=== PATIENT | male | born 1955 | race African-American/Black ===

== ENCOUNTER 2016-12-29 10:20 | Emergency (ER) | payer MEDICARE, MEDICAID ==
[2016-12-29] MEDS ORDERED: ONDANSETRON HCL INJ/PF 4 MG/2 ML SDV IV ONE (11:30)
[2016-12-29] MEDS ORDERED: KETOROLAC TROMETHAMINE INJ/PF 30 MG/1 ML SDV IV ONE (11:30)
[2016-12-29] MEDS ORDERED: NORMAL SALINE 1000 ML 1,000 ML IV PRN (11:30)
--- NOTE | 2016-12-29 11:32 | ER Document Report ---
ED Medical Screen (RME) - General Chief Complaint: Nausea/Vomiting Stated Complaint: NAUSEA/VOMITING Time Seen by Provider: 12/29/16 11:30 Mode of Arrival: Ambulatory Information source: Patient TRAVEL OUTSIDE OF THE [place] IN LAST 30 DAYS: No - HPI Patient complains to provider of: Nausea, vomiting, headache Onset: This morning Notes: 12/29/16 11:31 Is a 61-year-old male with a history of diabetes who presents to the emergency room complaining of nausea, vomiting and headache that started this morning, he denies any abdominal pain, no chest pain or shortness of breath, no diarrhea, no dysuria, no sick contacts, no questionable food intake, patient's primary care provider is Dr. Orozco - Related Data Allergies/Adverse Reactions: No Known Allergies Allergy (Verified 12/29/16 10:27) Past Medical History - Past Medical History Cardiac Medical History: Reports: Hx Hypertension Neurological Medical History: Denies: Hx Seizures Endocrine Medical History: Reports: Hx Diabetes Mellitus Type 2 Renal/ Medical History: Denies: Hx Peritoneal Dialysis Psychiatric Medical History: Denies: Hx Depression - Immunizations Immunizations up to date: Yes Hx Diphtheria, Pertussis, Tetanus Vaccination: No Physical Exam - Vital signs Vitals: Temp Pulse Resp BP Pulse Ox 97.6 F 107 H 20 126/72 H 100 12/29/16 10:31 12/29/16 10:31 12/29/16 10:31 12/29/16 10:31 12/29/16 10:31 Course - Vital Signs Vital signs: Temp Pulse Resp BP Pulse Ox 97.6 F 107 H 20 126/72 H 100 12/29/16 10:31 12/29/16 10:31 12/29/16 10:31 12/29/16 10:31 12/29/16 10:31
[2016-12-29 12:40] LABS: ABSOLUTE LYMPHOCYTES (AUTO) 1.1 10^3/uL (0.5-4.7); ABSOLUTE MONOCYTES (AUTO) 0.5 10^3/uL (0.1-1.4); ABSOLUTE NEUT (AUTO) 7.5 10^3/uL (1.7-8.2); BASOPHILS % (AUTO) 0.2 % (0-2); HEMATOCRIT 36.5 % (37.9-51.0); HEMOGLOBIN 11.8 g/dL (13.5-17.0); HGB HCT DIFFERENCE -1.1; LYMPHOCYTES % (AUTO) 11.6 % (13-45); MEAN CORPUSCULAR HGB CONC 32.2 g/dL (32.0-36.0); MEAN CORPUSCULAR VOLUME 106 fl (80-97); MONOCYTES % (AUTO) 5.9 % (3-13); RED BLOOD COUNT 3.46 10^6/uL (4.35-5.55); RED CELL DISTRIBUTION WIDTH 13.8 % (11.5-14.0); SEGMENTED NEUTROPHILS % (AUTO) 82.3 % (42-78); WHITE BLOOD COUNT 9.1 10^3/uL (4.0-10.5)
--- NOTE | 2016-12-29 13:06 | ER Document Report ---
ED GI/ - General Chief Complaint: Nausea/Vomiting Stated Complaint: NAUSEA/VOMITING Time Seen by Provider: 12/29/16 11:30 Mode of Arrival: Ambulatory Information source: Patient Notes: 61 yo daibetic, prostatism, parkinson's disease, anxiety male c/o worse tremors , felt dizzy, weak, shakey, frontal headache 5/5 onset this am 05:30-woke him up , vomiting x 2, watery diarrhea x 2 , voice weak this morning when he woke up. PCP: dr. dixon. No chest pain or sob, no abdominal pain. No surguries. no cancer. No fever.. TRAVEL OUTSIDE OF THE [place] IN LAST 30 DAYS: No - Related Data Allergies/Adverse Reactions: No Known Allergies Allergy (Verified 12/29/16 10:27) Past Medical History - General Information source: Patient - Social History Smoking Status: Unknown if Ever Smoked Frequency of alcohol use: Heavy Drug Abuse: None Lives with: Family Family History: Reviewed & Not Pertinent Patient has suicidal ideation: No Patient has homicidal ideation: No - Past Medical History Cardiac Medical History: Reports: Hx Hypertension Neurological Medical History: Denies: Hx Seizures Endocrine Medical History: Reports: Hx Diabetes Mellitus Type 2 Renal/ Medical History: Denies: Hx Peritoneal Dialysis Psychiatric Medical History: Denies: Hx Depression - Immunizations Immunizations up to date: Yes Hx Diphtheria, Pertussis, Tetanus Vaccination: No Review of Systems - Review of Systems Constitutional: No symptoms reported EENT: No symptoms reported Cardiovascular: No symptoms reported Respiratory: No symptoms reported Gastrointestinal: See HPI Genitourinary: No symptoms reported Male Genitourinary: No symptoms reported Musculoskeletal: No symptoms reported Skin: No symptoms reported Hematologic/Lymphatic: No symptoms reported Neurological/Psychological: No symptoms reported Physical Exam - Vital signs Vitals: Temp Pulse Resp BP Pulse Ox 97.6 F 107 H 20 126/72 H 100 12/29/16 10:31 12/29/16 10:31 12/29/16 10:31 12/29/16 10:31 12/29/16 10:31 Interpretation: Normal - General General appearance: Appears well, Alert In distress: None Notes: tremors noted - HEENT Head: Normocephalic, Atraumatic Eyes: Normal Conjunctiva: Normal Pupils: PERRL Mucous membranes: Moist Pharynx: Normal Neck: Supple - Respiratory Respiratory status: No respiratory distress Chest status: Nontender Breath sounds: Normal Chest palpation: Normal - Cardiovascular Rhythm: Regular Heart sounds: Normal auscultation Murmur: No - Abdominal Inspection: Normal Distension: No distension Bowel sounds: Normal Tenderness: Nontender. No: Tender Organomegaly: No organomegaly - Back Back: Normal, Nontender. No: CVA tenderness - Extremities General upper extremity: Normal inspection, Nontender, Normal color, Normal ROM , Normal temperature General lower extremity: Normal inspection, Nontender, Normal color, Normal ROM , Normal temperature, Normal weight bearing. No: Jesica's sign - Neurological Neuro grossly intact: Yes Cognition: Normal Orientation: AAOx4 [place] Coma Scale Eye Opening: Spontaneous [place] Coma Scale Verbal: Oriented Ethan Coma Scale Motor: Obeys Commands Ethan Coma Scale Total: 15 Speech: Normal Motor strength normal: LUE, RUE, LLE, RLE Sensory: Normal - Psychological Associated symptoms: Normal affect, Normal mood - Skin Skin Temperature: Warm Skin Moisture: Dry Skin Color: Normal Skin irregularity: negative: Rash Course - Re-evaluation Re-evalutation: 12/29/16 13:[address] Forde for supplementary orders of CT of the head, magnesium 1 g IV, and ABGs since his PO2 of 6. Magnesium 1.6. 12/29/16 18:27 It is normal on the ABG 7.3. Dr. Forde recommends repeating the basic 7 to see how his electrolytes are doing after IV fluids and eating and drinking which he is doing now. Has not had any vomiting or diarrhea here he can go home if the basic 7 is improving are normal. Feels a lot better. 12/29/16 20:[address] Dixon patient in the office he told me to tell the patient to stop drinking alcohol. 12/29/16 20:16 covering glucose with 4 units SQ for glucose 242, OK with dr. galvan to send pt home without accucheck - Vital Signs Vital signs: Temp Pulse Resp BP Pulse Ox 97.6 F 107 H 22 H 122/70 98 12/29/16 10:31 12/29/16 10:31 12/29/16 17:01 12/29/16 17:01 12/29/16 17:01 - Laboratory Result Diagrams: 12/29/16 12:05 12/29/16 19:15 Laboratory results interpreted by me: 12/29/16 12/29/16 12/29/16 11:49 12:05 12:05 RBC 3.46 L Hgb 11.8 L Hct 36.5 L MCV 106 H MCH 34.0 H Plt Count 105 L Seg Neutrophils % 82.3 H Lymphocytes % 11.6 L Carbonic Acid ABG pH ABG pCO2 ABG HCO3 ABG Total CO2 Sodium Potassium 5.3 H Chloride 93 L Carbon Dioxide 6 L* Anion Gap 40 H Creatinine 1.46 H Est GFR ( Amer) 59 L Est GFR (Non-Af Amer) 49 L Glucose 198 H POC Glucose 182 H Calcium Magnesium 1.1 L* Total Bilirubin 2.2 H Direct Bilirubin 1.4 H AST 274 H ALT 78 H Alkaline Phosphatase 138 H Total Protein 10.5 H Urine Glucose (UA) Urine Ketones Urine Blood Ur Leukocyte Esterase 12/29/16 12/29/16 12/29/16 14:10 14:45 19:15 RBC Hgb Hct MCV MCH Plt Count Seg Neutrophils % Lymphocytes % Carbonic Acid 0.74 L ABG pH 7.30 L ABG pCO2 24.5 L ABG HCO3 11.8 L ABG Total CO2 12.6 L Sodium 133.9 L Potassium Chloride 95 L Carbon Dioxide 16 L D Anion Gap 23 H Creatinine 1.41 H Est GFR ( Amer) Est GFR (Non-Af Amer) 51 L Glucose 242 H POC Glucose Calcium 8.2 L Magnesium Total Bilirubin Direct Bilirubin AST ALT Alkaline Phosphatase Total Protein Urine Glucose (UA) >=500 H Urine Ketones 80 H Urine Blood MODERATE H Ur Leukocyte Esterase SMALL H Discharge - Discharge Clinical Impression: Nausea and vomiting Qualifiers: Vomiting type: unspecified Vomiting Intractability: non-intractable Qualified Code(s): R11.2 - Nausea with vomiting, unspecified Headache Qualifiers: Headache type: unspecified Headache chronicity pattern: acute headache Intractability: not intractable Qualified Code(s): R51 - Headache Condition: Good Disposition: HOME, SELF-CARE Instructions: Diarrhea, Nonspecific ([facility]), Intravenous (IV) Fluids ([facility]), Vomiting ([facility]), Diabetes ([facility]) Additional Instructions: drink plenty of fluids/water daily stop drinking alcohol to er if worse See Dr. Dixon tomorrow Please complete the patient satisfaction survey if you get one, and return it.. If you do not receive a survey, then you can go to the [facility] website, [email or web address] and place your comments about your very good care. Thank you very much. It was a pleasure being your medical provider today. Referrals: YASSINE DIXON MD [Primary Care Provider] - Follow up tomorrow
[2016-12-29 13:08] LABS: ALANINE AMINOTRANSFERASE 78 U/L (21-72); ALBUMIN 4.8 g/dL (3.5-5.0); ALCOHOL 14 mg/dL (NONE DETECTED); ALKALINE PHOSPHATASE 138 U/L (38-126); ASPARTATE AMINO TRANSFERASE 274 U/L (17-59); BILIRUBIN,DIRECT 1.4 mg/dL (0.0-0.4); BILIRUBIN,TOTAL 2.2 mg/dL (0.2-1.3); BLOOD UREA NITROGEN 14 mg/dL (7-20); CHLORIDE 93 mmol/L (98-107); CREATININE RESULT 1.46 mg/dL (0.52-1.25); GLUCOSE 198 mg/dL (75-110); TOTAL PROTEIN 10.5 g/dL (6.3-8.2)
[2016-12-29 13:14] LABS: LIPASE 254.2 U/L (23-300)
[2016-12-29 13:23] LABS: FREE T3 3.12 pg/mL (2.77-5.27)
[2016-12-29 13:28] LABS: POTASSIUM 5.3 mmol/L (3.6-5.0); SODIUM 139.1 mmol/L (137-145)
[2016-12-29 13:36] LABS: THYROID STIMULATING HORMONE 0.95 uIU/mL (0.47-4.68)
[2016-12-29 13:38] LABS: ANION GAP 40 (5-19)
[2016-12-29 13:41] LABS: CARBON DIOXIDE 6 mmol/L (22-30); MAGNESIUM 1.1 mg/dL (1.6-2.3)
[2016-12-29] MEDS ORDERED: MAGNESIUM SULFATE/D5W 100 ML IV ONE (13:56)
[2016-12-29 14:45] LABS: APPEARANCE,URINE CLEAR; BILIRUBIN,URINE NEGATIVE (NEGATIVE); GLUCOSE, URINE >=500 mg/dL (NEGATIVE); KETONES,URINE 80 mg/dL (NEGATIVE); LEUKOCYTE ESTERASE,URINE SMALL (NEGATIVE); NITRITE,URINE NEGATIVE (NEGATIVE); PROTEIN,URINE NEGATIVE (NEGATIVE); URINE SPECIFIC GRAVITY 1.006; UROBILINOGEN,URINE NEGATIVE mg/dL (<2.0)
--- NOTE | 2016-12-29 14:54 | RADIOLOGY REPORT (SQ) ---
EXAM DESCRIPTION: CT HEAD WITHOUT COMPLETED DATE/TIME: 12/29/2016 2:41 pm REASON FOR STUDY: sudden onset DAVE, dizzy COMPARISON: 11/18/2015 TECHNIQUE: Axial images acquired through the brain without intravenous contrast. Images reviewed wi th bone, brain and subdural windows. Images stored on PACS. All CT scanners at this facility use dose modulation, iterative reconstruction, and/or weight based d osing when appropriate to reduce radiation dose to as low as reasonably achievable (ALARA). [facility]: Dose Right [facility]: CareDose [facility]: Dose Right [facility]: Teradose 4D [facility]: MiName RADIATION DOSE: 64.61 mGy. LIMITATIONS: None. FINDINGS: VENTRICLES: Normal size and contour. CEREBRUM: No masses. No hemorrhage. No midline shift. Normal jackson/white matter differentiation. N o evidence for acute infarction. CEREBELLUM: No masses. No hemorrhage. No alteration of density. No evidence for acute infarction. EXTRAAXIAL SPACES: No fluid collections. No masses. ORBITS AND GLOBE: No intra- or extraconal masses. Normal contour of globe without masses. CALVARIUM: No fracture. PARANASAL SINUSES: No fluid or mucosal thickening. SOFT TISSUES: No mass or hematoma. OTHER: No other significant finding. IMPRESSION: NORMAL BRAIN CT WITHOUT CONTRAST. TECHNICAL DOCUMENTATION: JOB ID: [id number] Quality ID # [id number]: Final reports with documentation of one or more dose reduction techniques (e.g., Au tomated exposure control, adjustment of the mA and/or kV according to patient size, use of iterative reconstruction technique) 2010 [employer]- All Rights Reserved
[2016-12-29] MEDS ORDERED: ACETAMINOPHEN 325 MG TABLET PO ONE (15:59)
[2016-12-29 18:07] LABS: ARTERIAL BLOOD BASE EXCESS -12.8 mmol/L
[2016-12-29 19:47] LABS: BLOOD UREA NITROGEN 16 mg/dL (7-20); CALCIUM 8.2 mg/dL (8.4-10.2); CHLORIDE 95 mmol/L (98-107); CREATININE RESULT 1.41 mg/dL (0.52-1.25); GLUCOSE 242 mg/dL (75-110)
[2016-12-29 19:57] LABS: SODIUM 133.9 mmol/L (137-145)
[2016-12-29 19:58] LABS: ANION GAP 23 (5-19); CARBON DIOXIDE 16 mmol/L (22-30)
[2016-12-29] MEDS ORDERED: INSULIN REG, HUMAN 100 UNIT/ML 3 ML VIAL (PYX) SUBCUT ONE (20:15)
[2016-12-29 21:31] VITALS: BP 145/75
== END 2016-12-29 21:29 | disposition home or self-care (01) ==
LOC: ER 10:20
DX: R11.2 Nausea with vomiting, unspecified (principal); R51 Headache; E11.9 Type 2 diabetes mellitus without complications; G20 Parkinson's disease; F41.9 Anxiety disorder, unspecified
CPT/HCPCS: 99284; 96361; 96375; 96365; 36415; 87086; 84439; 82962; 80307; 82803; 83690; 83735; 84443; 85025; 80048; 80053; 81001; 84481; 70450; 36600; A9270; J1885; J3475; J2405; J7030; J1815

== ENCOUNTER 2017-04-14 17:27 | Emergency (ER) | payer MEDICARE, MEDICAID ==
[2017-04-14] MEDS ORDERED: CEFTRIAXONE 1 GM/D5W RTU 1 GM/50 ML RTUPB IV ONE (17:32)
--- NOTE | 2017-04-14 17:41 | ER Document Report ---
ED Medical Screen (RME) - General Stated Complaint: WEAKNESS Time Seen by Provider: 04/14/17 17:30 Mode of Arrival: Medic Information source: Patient, Emergency Med Personnel Notes: 61 yr old male presents with dizziness lightheaded shaking, pt has hx of diabetes, admits to burning on urination I have greeted and performed a rapid initial assessment of this patient. A comprehensive ED assessment and evaluation of the patient, analysis of test results and completion of the medical decision making process will be conducted by additional ED providers. PHYSICAL EXAMINATION: GENERAL: ill-appearing, well-nourished and in mild distress HEAD: Atraumatic, normocephalic. EYES: Pupils equal round extraocular movements intact, conjunctiva are normal. ENT: Nares patent NECK: Normal range of motion LUNGS: No respiratory distress tachypniec Musculoskeletal: Normal range of motion NEUROLOGICAL: Normal speech, normal gait. PSYCH: Normal mood, normal affect. SKIN: hot ot touch TRAVEL OUTSIDE OF THE [place] IN LAST 30 DAYS: No - Related Data Allergies/Adverse Reactions: No Known Allergies Allergy (Verified 12/29/16 10:27) Past Medical History - Past Medical History Cardiac Medical History: Reports: Hx Hypertension Neurological Medical History: Denies: Hx Seizures Endocrine Medical History: Reports: Hx Diabetes Mellitus Type 2 Renal/ Medical History: Denies: Hx Peritoneal Dialysis Psychiatric Medical History: Denies: Hx Depression - Immunizations Immunizations up to date: Yes Hx Diphtheria, Pertussis, Tetanus Vaccination: No
[2017-04-14] MEDS: NORMAL SALINE 1000 ML 1,000 ML IV PRN ×2 (17:48→17:49)
[2017-04-14 17:55] LABS: VENOUS BLOOD BASE EXCESS -19.4 mmol/L; VENOUS BLOOD HCO3 9.3 mmol/L (20-32); VENOUS BLOOD PCO2 31.7 mmHg (35-63)
[2017-04-14 17:58] LABS: ABSOLUTE LYMPHOCYTES (AUTO) 1.2 10^3/uL (0.5-4.7); ABSOLUTE MONOCYTES (AUTO) 0.5 10^3/uL (0.1-1.4); ABSOLUTE NEUT (AUTO) 5.7 10^3/uL (1.7-8.2); BASOPHILS % (AUTO) 0.3 % (0-2); HEMATOCRIT 32.8 % (37.9-51.0); HEMOGLOBIN 10.8 g/dL (13.5-17.0); HGB HCT DIFFERENCE -0.4; LYMPHOCYTES % (AUTO) 16.5 % (13-45); MEAN CORPUSCULAR HGB CONC 32.9 g/dL (32.0-36.0); MEAN CORPUSCULAR VOLUME 106 fl (80-97); MONOCYTES % (AUTO) 6.7 % (3-13); RED BLOOD COUNT 3.09 10^6/uL (4.35-5.55); RED CELL DISTRIBUTION WIDTH 16.3 % (11.5-14.0); SEGMENTED NEUTROPHILS % (AUTO) 76.5 % (42-78); VENOUS BLOOD PH 7.08 (7.30-7.42); WHITE BLOOD COUNT 7.4 10^3/uL (4.0-10.5)
[2017-04-14] MEDS ORDERED: LIDOCAINE 2% URO-JET 5 ML KIT MM ONE (18:00)
[2017-04-14 18:01] LABS: PROTHROMBIN TIME 20.8 SEC (11.4-15.4)
[2017-04-14 18:07] LABS: ALANINE AMINOTRANSFERASE 71 U/L (21-72); ALKALINE PHOSPHATASE 174 U/L (38-126); ASPARTATE AMINO TRANSFERASE 186 U/L (17-59); BILIRUBIN,DIRECT 0.8 mg/dL (0.0-0.4); BILIRUBIN,TOTAL 1.1 mg/dL (0.2-1.3); BLOOD UREA NITROGEN 13 mg/dL (7-20); CALCIUM 8.8 mg/dL (8.4-10.2); CHLORIDE 105 mmol/L (98-107); CREATININE RESULT 1.14 mg/dL (0.52-1.25); GLUCOSE 125 mg/dL (75-110); POTASSIUM 4.2 mmol/L (3.6-5.0); SODIUM 150.5 mmol/L (137-145); TOTAL PROTEIN 8.5 g/dL (6.3-8.2)
[2017-04-14] MEDS ORDERED: LIDOCAINE 2% JELLY 5 ML TUBE ONE (18:07)
--- NOTE | 2017-04-14 18:14 | EKG REPORT ---
SEVERITY:- ABNORMAL ECG - SINUS TACHYCARDIA PROBABLE LEFT ATRIAL ABNORMALITY LEFT AXIS DEVIATION NONSPECIFIC T ABNORMALITIES, LATERAL LEADS : Confirmed by: Chrissy Broussard MD 14-Apr-2017 18:14:16
--- NOTE | 2017-04-14 18:18 | RADIOLOGY REPORT (SQ) ---
EXAM DESCRIPTION: CHEST SINGLE VIEW COMPLETED DATE/TIME: 04/14/2017 6:05 pm REASON FOR STUDY: bed 2 sepsis protocol COMPARISON: None. EXAM PARAMETERS: NUMBER OF VIEWS: One view. TECHNIQUE: Single frontal radiographic view of the chest acquired. RADIATION DOSE: NA LIMITATIONS: None. FINDINGS: LUNGS AND PLEURA: No opacities, masses or pneumothorax. No pleural effusion. MEDIASTINUM AND HILAR STRUCTURES: No masses. Contour normal. HEART AND VASCULAR STRUCTURES: Heart normal in size. Normal vasculature. BONES: No acute findings. 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 HARDWARE: None in the chest. OTHER: No other significant finding. IMPRESSION: NO ACUTE RADIOGRAPHIC FINDING IN THE CHEST. TECHNICAL DOCUMENTATION: JOB ID: [id number]
[2017-04-14 18:20] LABS: CARBON DIOXIDE 5 mmol/L (22-30)
[2017-04-14] MEDS ORDERED: NORMAL SALINE 1000 ML 1,000 ML IV ONE (18:20)
[2017-04-14 18:28] LABS: APPEARANCE,URINE CLEAR; BILIRUBIN,URINE NEGATIVE (NEGATIVE); GLUCOSE, URINE NEGATIVE (NEGATIVE); KETONES,URINE 20 mg/dL (NEGATIVE); LEUKOCYTE ESTERASE,URINE NEGATIVE (NEGATIVE); NITRITE,URINE POSITIVE (NEGATIVE); PROTEIN,URINE NEGATIVE (NEGATIVE); URINE SPECIFIC GRAVITY 1.009; UROBILINOGEN,URINE NEGATIVE mg/dL (<2.0)
[2017-04-14 18:44] LABS: ANION GAP 41 (5-19)
[2017-04-14] MEDS ORDERED: PIPERACILLIN/TAZOBACTAM 3.375 GM VIAL IV ONE (18:51)
--- NOTE | 2017-04-14 19:21 | ER Document Report ---
ED General - General Chief Complaint: Weakness Stated Complaint: WEAKNESS Time Seen by Provider: 04/14/17 17:30 Mode of Arrival: Medic Information source: Patient Notes: 61-year-old man with a history of diabetes, hypertension, alcoholic liver disease and Werneke's encephalopathy. Patient does have history of a similar presentation approximately one year ago where he presented with an enterococcus UTI sepsis. At that time he had a lactic acid of 20 and was quite acidotic. The patient is brought into the emergency room today because of "feeling sick" for a couple of days along with some cloudy urine. Review of systems: Patient does complain of a headache. TRAVEL OUTSIDE OF THE [place] IN LAST 30 DAYS: No - HPI Onset: Last week Onset/Duration: Gradual Quality of pain: No pain, Dull Severity: Moderate Pain Level: Denies Associated symptoms: Headache, Weakness Exacerbated by: Denies Relieved by: Denies Similar symptoms previously: Yes Recently seen / treated by doctor: No - Related Data Allergies/Adverse Reactions: No Known Allergies Allergy (Verified 12/29/16 10:27) Past Medical History - General Information source: Patient, Emergency Med Personnel - Social History Smoking Status: Never Smoker Chew tobacco use (# tins/day): No Frequency of alcohol use: Heavy Drug Abuse: None Lives with: Family Family History: Reviewed & Not Pertinent Patient has suicidal ideation: No Patient has homicidal ideation: No - Past Medical History Cardiac Medical History: Reports: Hx Hypertension Neurological Medical History: Denies: Hx Seizures Endocrine Medical History: Reports: Hx Diabetes Mellitus Type 2 Renal/ Medical History: Denies: Hx Peritoneal Dialysis Psychiatric Medical History: Denies: Hx Depression - Immunizations Immunizations up to date: Yes Hx Diphtheria, Pertussis, Tetanus Vaccination: No Review of Systems - Review of Systems Constitutional: denies: Chills, Fever EENT: No symptoms reported Cardiovascular: No symptoms reported Respiratory: No symptoms reported Gastrointestinal: No symptoms reported Genitourinary: No symptoms reported Male Genitourinary: No symptoms reported Musculoskeletal: No symptoms reported Skin: No symptoms reported Hematologic/Lymphatic: No symptoms reported Neurological/Psychological: See HPI Physical Exam - Vital signs Vitals: Resp Pulse Ox 23 H 97 04/14/17 18:13 04/14/17 18:13 Notes: Physical exam: GENERAL: The patient is alert and answering questions. He just states that he does not feel good. He denies having pain anywhere. HEAD: Atraumatic, normocephalic. EYES: Pupils equal round and reactive to light, extraocular movements intact, sclera anicteric, conjunctiva are injected. ENT: TMs normal, nares patent, oropharynx clear without exudates. Dry mucous membranes. NECK: Normal range of motion, supple without obvious mass or JVD. LUNGS: Breath sounds clear to auscultation bilaterally and equal. No wheezes rales or rhonchi. HEART: Tachycardic without murmurs, rubs or gallops. ABDOMEN: Soft, normoactive bowel sounds. No tenderness to palpation. No guarding, no rebound. No masses appreciated. Back: Skin is clear, no rashes. Rectal: Temperature is 94.6, is no perirectal fluctuance or tenderness. His prostate is enlarged but it is nontender. His stool is brown (sent for study). EXTREMITIES: Normal range of motion, no pitting or edema. No clubbing or cyanosis. NEUROLOGICAL: Cranial nerves II through XII grossly intact. Normal speech, moving all extremities. He moves his neck without any problems. PSYCH: Normal mood, normal affect. SKIN: Warm, Dry, normal turgor, no rashes or lesions noted. Course - Re-evaluation Re-evalutation: 04/14/17 22:34 Note: The patient appears to be septic. He has a very similar presentation in the past that turned out to be sepsis with UTI from enterococcus. At that time , his CO2 was low and his lactic acid was very high. We did try and get a Woodard in without success (multiple times). He will have overflow incontinence, but he has significant urinary retention. We have stopped after the fifth attempt because we do not want a create a false passage. Because of this, I have contacted [facility] to transfer the patient because we have no urology here at this hospital. Before transport, I did put the patient in the CT scanner and CT head was okay and the CT abdomen showed some inflammation in the left upper quadrant at the tail of the pancreas. I believe this is from the patient's alcohol abuse. His abdomen was quite soft and nontender. Given the patient's headache, lactic acid and concerns for sepsis, I performed a spinal tap. The fluid was mildly traumatic but it cleared by the fourth tube. Labs are pending. I discussed this with Dr. Elias who has accepted the patient to [facility]. - Vital Signs Vital signs: Temp Pulse Resp BP Pulse Ox 24 H 110/57 L 99 04/14/17 20:21 04/14/17 20:21 04/14/17 21:00 - Laboratory Result Diagrams: 04/14/17 17:34 04/14/17 17:34 Laboratory results interpreted by me: 04/14/17 04/14/17 04/14/17 17:34 17:34 17:34 RBC 3.09 L Hgb 10.8 L Hct 32.8 L MCV 106 H MCH 35.0 H RDW 16.3 H Plt Count 88 L PT 20.8 H VBG pH VBG pCO2 VBG HCO3 Sodium 150.5 H Carbon Dioxide 5 L* Anion Gap 41 H Glucose 125 H Lactic Acid Magnesium Direct Bilirubin 0.8 H AST 186 H Alkaline Phosphatase 174 H Total Protein 8.5 H Urine Ketones Urine Blood Urine Nitrite 04/14/17 04/14/17 04/14/17 17:34 17:34 17:34 RBC Hgb Hct MCV MCH RDW Plt Count PT VBG pH 7.08 L* VBG pCO2 31.7 L VBG HCO3 9.3 L Sodium Carbon Dioxide Anion Gap Glucose Lactic Acid 20.3 H Magnesium 1.1 L* Direct Bilirubin AST Alkaline Phosphatase Total Protein Urine Ketones Urine Blood Urine Nitrite 04/14/17 18:05 RBC Hgb Hct MCV MCH RDW Plt Count PT VBG pH VBG pCO2 VBG HCO3 Sodium Carbon Dioxide Anion Gap Glucose Lactic Acid Magnesium Direct Bilirubin AST Alkaline Phosphatase Total Protein Urine Ketones 20 H Urine Blood LARGE H Urine Nitrite POSITIVE H - Diagnostic Test Radiology reviewed: Image reviewed, Reports reviewed - EKG Interpretation by Me Rate: Tachycardia - EKG shows a sinus tachycardia with a ventricular rate of 115 , left anterior hemiblock, no acute ST-T wave changes Procedures - Lumbar Puncture Lumbar puncture Time completed: 21:03 Consent obtained: Yes Lumbar puncture pre-procedure: Chloraprep applied, Sterile drapes applied Patient position: Lying Needle size: 20 Lumbar puncture location: Lower lumbar Anesthetic type: 1% Lidocaine mL's of anesthetic: 5 Number of attempts: 2 Complications: No Notes: 04/14/17 21:04 Tube #1 fluid was mildly traumatic. The fluid cleared significantly by tube # 4. Fluid sent for study. Critical Care Note - Critical Care Note Total time excluding time spent on procedures (mins): 60 Discharge - Discharge Clinical Impression: Sepsis, Obstructive uropathy Condition: Serious Disposition: [facility] Referrals: YASSINE JOSEPH MD [Primary Care Provider] - Follow up as needed
[2017-04-14] MEDS ORDERED: THIAMINE HCL 100 MG in NORMAL SALINE 50 ML IV SCH (19:30)
[2017-04-14 20:05] VITALS: BP 110/57
[2017-04-14] MEDS ORDERED: MAGNESIUM SULFATE/D5W 1 GM/100 ML RTUPB IV SCH (20:15)
[2017-04-14] MEDS ORDERED: THIAMINE HCL 100 MG in NORMAL SALINE 50 ML IV ONE (20:30)
[2017-04-14] MEDS ORDERED: LIDOCAINE 1% INJ-PF (10 MG/ML) 30 ML SDV ONE (20:53)
--- NOTE | 2017-04-14 20:56 | RADIOLOGY REPORT (SQ) ---
EXAM DESCRIPTION: CT HEAD WITHOUT COMPLETED DATE/TIME: 04/14/2017 8:40 pm REASON FOR STUDY: altered COMPARISON: None. TECHNIQUE: Axial images acquired through the brain without intravenous contrast. Images reviewed wi th bone, brain and subdural windows. Images stored on PACS. All CT scanners at this facility use dose modulation, iterative reconstruction, and/or weight based d osing when appropriate to reduce radiation dose to as low as reasonably achievable (ALARA). [facility]: Dose Right [facility]: CareDose [facility]: Dose Right [facility]: Teradose 4D [facility]: [employer] RADIATION DOSE: Up-to-date CT equipment and radiation dose reduction techniques were employed. CTDIv ol: 64.6 mGy. DLP: 1163 mGy-cm. mGy. LIMITATIONS: None. FINDINGS: VENTRICLES: Normal size and contour. CEREBRUM: No masses. No hemorrhage. No midline shift. No evidence for acute infarction. Normal gra y/white matter differentiation. No areas of low density in the white matter. CEREBELLUM: No masses. No hemorrhage. No alteration of density. No evidence for acute infarction. EXTRAAXIAL SPACES: No fluid collections. No masses. ORBITS AND GLOBE: No intra- or extraconal masses. Normal contour of globe without masses. CALVARIUM: No fracture. PARANASAL SINUSES: No fluid or mucosal thickening. SOFT TISSUES: No mass or hematoma. OTHER: No other significant finding. IMPRESSION: No acute intracranial findings. EVIDENCE OF ACUTE STROKE: NO. COMMENT: Quality ID # [id number]: Final reports with documentation of one or more dose reduction techniques (e.g., Automated exposure control, adjustment of the mA and/or kV according to patient size, use of iterative reconstruction technique) TECHNICAL DOCUMENTATION: JOB ID: [id number] [employer]- All Rights Reserved
--- NOTE | 2017-04-14 21:01 | RADIOLOGY REPORT (SQ) ---
EXAM DESCRIPTION: CT ABD/PELVIS WITH IV ONLY COMPLETED DATE/TIME: 04/14/2017 8:40 pm REASON FOR STUDY: sepsis COMPARISON: None. TECHNIQUE: CT scan of the abdomen and pelvis performed using helical scanning technique with dynamic intravenous contrast injection. No oral contrast. Images reviewed with lung, soft tissue, and bone windows. Reconstructed coronal and sagittal MPR images reviewed. Delayed images for evaluation of the urinary system also acquired. All images stored on PACS. All CT scanners at this facility use dose modulation, iterative reconstruction, and/or weight based d osing when appropriate to reduce radiation dose to as low as reasonably achievable (ALARA). [facility]: Dose Right [facility]: CareDose [facility]: Dose Right [facility]: Teradose 4D [facility]: [employer] CONTRAST TYPE AND DOSE: contrast/concentration: Isovue 370.00 mg/ml; Total Contrast Delivered: 81.0 ml; Total Saline Delivered: 38.0 ml RENAL FUNCTION: GFR > 60. RADIATION DOSE: Up-to-date CT equipment and radiation dose reduction techniques were employed. CTDIv ol: 13.6 - 14.4 mGy. DLP: 1395 mGy-cm.. LIMITATIONS: None. FINDINGS: LOWER CHEST: No significant findings. No nodules or infiltrates. LIVER: Normal size. Diffuse fatty infiltration. No dilated ducts. SPLEEN: Normal size. No focal lesions. PANCREAS: Moderate inflammatory changes in the left upper quadrant adjacent to the tail and distal karina dy of the pancreas. No significant calcifications. No peripancreatic fluid collections. Pancreatic du ct not dilated. GALLBLADDER: No identified stones by CT criteria. No inflammatory changes to suggest cholecystitis. ADRENAL GLANDS: No significant masses or asymmetry. RIGHT KIDNEY AND URETER: No solid masses. No significant calcifications. No hydronephrosis or hyd roureter. LEFT KIDNEY AND URETER: No solid masses. No significant calcifications. No hydronephrosis or hydr oureter. AORTA AND VESSELS: No aneurysm. No dissection. Renal arteries, SMA, celiac without stenosis. RETROPERITONEUM: No retroperitoneal adenopathy, hemorrhage or masses. BOWEL AND PERITONEAL CAVITY: Moderate wall thickening in the cecum. Small left inguinal hernia with a short segment of sigmoid colon without evidence for obstruction or incarceration. APPENDIX: Normal. PELVIS: No free fluid. Normal bladder. ABDOMINAL WALL: No masses. Small left inguinal hernia with a short segment of sigmoid colon without evidence for obstruction or incarceration. . BONES: No acute findings. OTHER: No other significant finding. IMPRESSION: Moderate wall thickening in the cecum. Moderate inflammatory changes in the left upper quadrant adjacent to the tail and distal body of the pancreas. TECHNICAL DOCUMENTATION: JOB ID: [id number] Quality ID # [id number]: Final reports with documentation of one or more dose reduction techniques (e.g., Au tomated exposure control, adjustment of the mA and/or kV according to patient size, use of iterative reconstruction technique) 2010 [employer]- All Rights Reserved
[2017-04-14 22:49] LABS: GLUCOSE,CSF 87 mg/dL (40-70)
[2017-04-14 22:59] LABS: APPEARANCE TUBE 1 SLIGHTLY HAZY
[2017-04-14 23:00] LABS: APPEARANCE TUBE 2 SLIGHTLY HAZY; APPEARANCE TUBE 3 CLEAR; RBC DILUENT USED NONE USED; RBC DILUTION FACTOR 1; RBC SIDE 1 463; RBC SIDE 2 451; TOTAL RBC SQUARES COUNTED 25
[2017-04-14 23:01] LABS: WHITE BLOOD CELL,CSF 12 /uL (0-5)
[2017-04-14 23:08] LABS: APPEARANCE TUBE 1 SLIGHTLY HAZY; APPEARANCE TUBE 2 SLIGHTLY HAZY; APPEARANCE TUBE 3 CLEAR; RBC AVERAGE 403.5; RBC DILUENT USED NONE USED; RBC DILUTION FACTOR 1; RBC SIDE 1 413; RBC SIDE 2 394; TOTAL RBC SQUARES COUNTED 225
[2017-04-14 23:09] LABS: WHITE BLOOD CELL,CSF 1 /uL (0-5)
== END 2017-04-14 21:15 | disposition short-term general hospital (02) ==
LOC: ER 17:27
PROC: 009U3ZX Drainage of Spinal Canal, Percutaneous Approach, Diagnostic (ICD-10-PCS; principal; 2017-04-14)
DX: A41.9 Sepsis, unspecified organism (principal); N13.9 Obstructive and reflux uropathy, unspecified; R53.1 Weakness; R51 Headache; E11.9 Type 2 diabetes mellitus without complications; I10 Essential (primary) hypertension
CPT/HCPCS: 93005; 99291; 51702; 96365; 96367; 36415; 87040; 87070; 87086; 87205; 83735; 85025; 85610; 89050; 82945; 84157; 82272; 80053; 81001; 82803; 83605; 71010; 70450; 74177; 93010; 62270; J7030; J0696; J2543; A9270; J3490

== ENCOUNTER 2017-07-23 03:27 | Emergency (ER) | payer MEDICARE, MEDICAID ==
--- NOTE | 2017-07-23 04:12 | ER Document Report ---
ED General - General Stated Complaint: SYNCOPE/FALL Time Seen by Provider: 07/23/17 03:58 Notes: Patient is a 61-year-old male presents with complaint of syncopal episode. He is found down at home by family. The fall was heard but apparently not seen per the manager collection report. Patient currently is awake and alert. He says he feels fine. 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 It is reported by paramedics that he did drink tonight. Patient currently denies any pain. He denies any chest pain. No shortness of breath. Denies a headache. He has no complaints at this time. He denies any symptoms before or after the syncope. TRAVEL OUTSIDE OF THE [place] IN LAST 30 DAYS: No - Related Data Allergies/Adverse Reactions: No Known Allergies Allergy (Verified 12/29/16 10:27) Past Medical History - Social History Smoking Status: Unknown if Ever Smoked Chew tobacco use (# tins/day): No Frequency of alcohol use: Heavy Drug Abuse: None Family History: Reviewed & Not Pertinent Patient has suicidal ideation: No Patient has homicidal ideation: No - Past Medical History Cardiac Medical History: Reports: Hx Hypertension Neurological Medical History: Denies: Hx Seizures Endocrine Medical History: Reports: Hx Diabetes Mellitus Type 2 Renal/ Medical History: Denies: Hx Peritoneal Dialysis Psychiatric Medical History: Denies: Hx Depression - Immunizations Immunizations up to date: Yes Hx Diphtheria, Pertussis, Tetanus Vaccination: No Review of Systems - Review of Systems Notes: My Normal Review Basic REVIEW OF SYSTEMS: CONSTITUTIONAL : Denies fever, chills, or sweats. Denies recent illness. EENT: Denies eye, ear, throat, or mouth pain or symptoms. Denies nasal or sinus congestion. CARDIOVASCULAR: Denies chest pain. RESPIRATORY: Denies cough, cold, or chest congestion. Denies shortness of breath, difficulty breathing, or wheezing. GASTROINTESTINAL: Denies abdominal pain. Denies nausea, vomiting, or diarrhea. Denies constipation. Last BM: MUSCULOSKELETAL: Denies neck or back pain or joint pain or swelling. SKIN: Denies rash or skin lesions. NEUROLOGICAL: Syncopal episode, Denies headache. Denies weakness or paralysis or loss of use of either side. Denies problems with gait or speech. Denies sensory or motor loss. ALL OTHER SYSTEMS REVIEWED AND NEGATIVE. Physical Exam - Vital signs Vitals: Temp Resp BP Pulse Ox 98.3 F 25 H 110/80 94 07/23/17 03:49 07/23/17 03:49 07/23/17 03:49 07/23/17 03:49 - Notes Notes: General Appearance: Well nourished, alert, cooperative, no acute distress, no obvious discomfort. Well-appearing. Vitals: reviewed, See vital signs table. Head: no swelling or tenderness to the head Eyes: PERRL, EOMI, Conjuctiva clear Mouth: No decreasd moisture Neck: Supple, no neck tenderness to palpation. No obvious deformities. Back: No thoracic or lumbar tenderness to palpation. Lungs: No wheezing, No rales, No rhonci, No accessory muscle use, good air exchange bilaterally. Heart: Normal rate, Regular rythm, No murmur, no rub Abdomen: Normal BS, soft, No rigidity, No abdominal tenderness, No guarding, no rebound, no abdominal masses, no organomegaly Extremities: strength 5/5 in all extremities, good pulses in all extremities, no swelling or tenderness in the extremities, no edema. Skin: warm, dry, appropriate color, no rash Neuro: speech clear. oriented to name, place, and year. Appears intoxicated with alcohol. responds appropriately to questions. Cranial nerves II through XII are intact. Good strength in all 4 extremities. Distal sensation intact. Course - Re-evaluation Re-evalutation: 07/23/17 05:07 CT scan shows intraventricular hemorrhage. Patient remained stable. I did speak with Dr. Maria at [facility] who agrees to accept the patient for transfer. Patient informed of the finding in the transfer and he is agreeable to plan. 07/23/17 06:21 On reevaluation patient continues to be awake and alert and is answering questions appropriately. He says he has no concerns at this time. Still pending transfer to [facility]. We expect transfer truck to be here somewhere between 8:[address] is negative. I have cleared the cervical spine. Vital signs are stable with a heart rate of 87 and blood pressure 110/69. 07/25/17 06:00 I did reevaluate the patient at the time of transfer when transport team was here. Patient continued to have baseline neurologic status answering questions appropriately without any signs of confusion. Patient's vital signs are stable. Patient was transferred. Dictation of this chart was performed using voice recognition software; therefore, there may be some unintended grammatical errors. - Vital Signs Vital signs: Temp Pulse Resp BP Pulse Ox 98.1 F 86 19 108/69 96 07/23/17 08:19 07/23/17 06:02 07/23/17 08:14 07/23/17 08:14 07/23/17 08:14 - Laboratory Result Diagrams: 07/23/17 04:16 07/23/17 04:16 Laboratory results interpreted by me: 07/23/17 07/23/17 07/23/17 04:16 04:16 04:16 RBC 2.99 L Hgb 10.4 L Hct 30.2 L MCV 101 H MCH 34.8 H RDW 17.9 H Plt Count 68 L Monocytes % 15.0 H PT 22.1 H Anion Gap 21 H Glucose 237 H Total Bilirubin 2.5 H Direct Bilirubin 1.1 H AST 353 H ALT 119 H Alkaline Phosphatase 243 H Total Protein 8.3 H - EKG Interpretation by Me Additional EKG results interpreted by me: 07/23/17 06:53 EKG is reviewed and interpreted by me. EKG shows normal sinus rhythm with a rate of. No ST segment elevation or depression. No old EKG available for comparison at this time. VT interval is slightly prolonged. QRS duration is within normal range. QTc interval is slightly prolonged. Discharge - Discharge Clinical Impression: Intracranial hemorrhage Condition: Stable Disposition: [facility] Referrals: AMIRA MURPHY FNP [Primary Care Provider] - Follow up as needed
[2017-07-23 04:35] LABS: ABSOLUTE MONOCYTES (AUTO) 1.1 10^3/uL (0.1-1.4); ABSOLUTE NEUT (AUTO) 5.2 10^3/uL (1.7-8.2); BASOPHILS % (AUTO) 0.4 % (0-2); EOSINOPHILS % (AUTO) 0.3 % (0-6); HEMATOCRIT 30.2 % (37.9-51.0); HEMOGLOBIN 10.4 g/dL (13.5-17.0); LYMPHOCYTES % (AUTO) 13.2 % (13-45); MEAN CORPUSCULAR HEMOGLOBIN 34.8 pg (27.0-33.4); MEAN CORPUSCULAR HGB CONC 34.5 g/dL (32.0-36.0); MEAN CORPUSCULAR VOLUME 101 fl (80-97); RED BLOOD COUNT 2.99 10^6/uL (4.35-5.55); RED CELL DISTRIBUTION WIDTH 17.9 % (11.5-14.0); SEGMENTED NEUTROPHILS % (AUTO) 71.1 % (42-78); TOTAL CELLS COUNTED % (AUTO) 100 %; WHITE BLOOD COUNT 7.3 10^3/uL (4.0-10.5)
[2017-07-23 04:37] LABS: PLATELET COUNT 68 10^3/uL (150-450)
[2017-07-23 04:46] LABS: ALANINE AMINOTRANSFERASE 119 U/L (21-72); ALBUMIN 3.6 g/dL (3.5-5.0); ALCOHOL 224 mg/dL (NONE DETECTED); ALKALINE PHOSPHATASE 243 U/L (38-126); ASPARTATE AMINO TRANSFERASE 353 U/L (17-59); BILIRUBIN,DIRECT 1.1 mg/dL (0.0-0.4); BILIRUBIN,TOTAL 2.5 mg/dL (0.2-1.3); BLOOD UREA NITROGEN 9 mg/dL (7-20); CHLORIDE 98 mmol/L (98-107); GLUCOSE 237 mg/dL (75-110); TOTAL PROTEIN 8.3 g/dL (6.3-8.2)
--- NOTE | 2017-07-23 04:55 | RADIOLOGY REPORT (SQ) ---
EXAM DESCRIPTION: CHEST SINGLE VIEW CLINICAL HISTORY: syncope COMPARISON: 04/14/2017 FINDINGS: Single frontal view of the chest. The cardiomediastinal silhouette has normal size and contour. No consolidation, pneumothorax, or pleural effusion. No displaced rib fractures identified. Upper abdominal soft tissues are unremarkable. Leads overlie the chest. IMPRESSION: 1. No acute pulmonary process identified.
[2017-07-23 04:56] LABS: CARBON DIOXIDE 22 mmol/L (22-30); SODIUM 141.3 mmol/L (137-145)
[2017-07-23 04:58] LABS: ANION GAP 21 (5-19); ANISOCYTOSIS 1+; TARGET CELLS 1+; TOXIC GRANULATION SLIGHT; TOXIC VACUOLATION PRESENT
--- NOTE | 2017-07-23 04:58 | RADIOLOGY REPORT (SQ) ---
EXAM DESCRIPTION: CT HEAD WITHOUT CLINICAL HISTORY: trauma, syncope COMPARISON: 04/14/2017 TECHNIQUE: Axial CT of the head obtained from the skull apex to the skull base without contrast. FINDINGS: The ventricular system is mildly enlarged. There is hyperdense material within the lumen of the left lateral ventricle. No definite extension of the third or fourth ventricle. No definite subarachnoid hemorrhage identified. No evidence of hydrocephalus, mass effect, or midline shift at this time. Scattered areas of hypodensity throughout the supratentorial white matter are nonspecific and may be related to chronic small vessel ischemic change. The visualized paranasal sinuses and the mastoids are clear. No skull fracture identified. Visualized orbits and globes are unremarkable. Atherosclerotic calcification of the intracranial internal carotid arteries. DLP: 1162.97 mGy-cm IMPRESSION: 1. Hyperdense material layering in the left lateral ventricle likely representing acute hemorrhage. Correlation with contrast-enhanced MRI recommended to evaluate the ventricles for possible hemorrhagic source. Report called to Dr. Unger at 0353 hours on 07/23/2017 This exam was performed according to our departmental dose-optimization program, which includes automated exposure control, adjustment of the mA and/or kV according to patient size and/or use of iterative reconstruction technique.
[2017-07-23 04:59] LABS: OVALOCYTES SLIGHT; PLATELET COMMENT DECREASED; POIKILOCYTOSIS SLIGHT; POLYCHROMASIA SLIGHT; ROULEAUX SLIGHT
--- NOTE | 2017-07-23 05:03 | RADIOLOGY REPORT (SQ) ---
EXAM DESCRIPTION: CT CERVICAL SPINE WITHOUT CLINICAL HISTORY: trauma, syncope COMPARISON: None available TECHNIQUE: Axial CT of the cervical spine obtained without contrast. FINDINGS: Alignment of the cervical spine is maintained without evidence of subluxation. The atlantoaxial, atlantodental, and occipitoatlantal intervals are preserved. No fracture identified. Prevertebral soft tissues are unremarkable. Moderate loss of intervertebral disc height at C2/3, C3/4 and C7/T1. Severe loss of intervertebral disc height at C4/5 through C6/7 with endplate spondylosis and uncovertebral spurring. Mild facet arthropathy. Multilevel level mild osseous neural foraminal narrowing. No definite central canal narrowing. Visualized skull base is intact. No fracture of the visualized facial bones. Visualized mastoid air cells and paranasal sinuses are well aerated. Visualized thyroid is unremarkable. No cervical lymphadenopathy. No pneumothorax in the visualized lung apices. Atherosclerotic calcification of the carotid arteries. DLP: 412.08 mGy-cm IMPRESSION: 1. No acute fracture or subluxation of the cervical spine. 2. Severe degenerative change of the cervical spine at C4/5 through C6/7. This exam was performed according to our departmental dose-optimization program, which includes automated exposure control, adjustment of the mA and/or kV according to patient size and/or use of iterative reconstruction technique.
[2017-07-23 05:06] LABS: INTERNATIONAL RATION (INR) 1.82; PROTHROMBIN TIME 22.1 SEC (11.4-15.4)
[2017-07-23 05:21] LABS: PARTIAL THROMBOPLASTIN TIME 34.1 SEC (23.5-35.8)
[2017-07-23 07:07] VITALS: BP 108/69
--- NOTE | 2017-07-23 07:52 | EKG REPORT ---
SEVERITY:- ABNORMAL ECG - SINUS RHYTHM LEFT ANTERIOR FASCICULAR BLOCK NONSPECIFIC T ABNORMALITIES, DIFFUSE LEADS BORDERLINE PROLONGED QT INTERVAL : Confirmed by: Cory Garrett MD 23-Jul-2017 07:51:56
== END 2017-07-23 08:26 | disposition short-term general hospital (02) ==
LOC: ER 03:27
DX: S06.309A Unspecified focal traumatic brain injury with loss of consciousness of unspecified duration, initial encounter (principal); W19.XXXA Unspecified fall, initial encounter; R55 Syncope and collapse; E11.9 Type 2 diabetes mellitus without complications; I10 Essential (primary) hypertension
CPT/HCPCS: 36415; 70450; 71045; 72125; 80053; 80307; 84484; 85025; 85610; 85730; 93005; 93010; 99285

== ENCOUNTER 2018-01-17 23:46 | Emergency (ER) | payer MEDICARE, MEDICAID ==
[2018-01-17] MEDS ORDERED: NORMAL SALINE 500 ML IV ONE (23:55)
[2018-01-17] MEDS ORDERED: HYDROMORPHONE HCL INJ/PF 2 MG/ML AMPULE IV ONE (23:55)
[2018-01-18 00:09] LABS: ABSOLUTE BASOPHILS # (AUTO) 0.1 10^3/uL (0.0-0.2); ABSOLUTE LYMPHOCYTES (AUTO) 2.1 10^3/uL (0.5-4.7); ABSOLUTE MONOCYTES (AUTO) 1.1 10^3/uL (0.1-1.4); ABSOLUTE NEUT (AUTO) 8.2 10^3/uL (1.7-8.2); BASOPHILS % (AUTO) 0.5 % (0-2); EOSINOPHILS % (AUTO) 0.2 % (0-6); HEMATOCRIT 36.3 % (37.9-51.0); HEMOGLOBIN 12.6 g/dL (13.5-17.0); LYMPHOCYTES % (AUTO) 18.5 % (13-45); MEAN CORPUSCULAR HEMOGLOBIN 33.3 pg (27.0-33.4); MEAN CORPUSCULAR HGB CONC 34.6 g/dL (32.0-36.0); MEAN CORPUSCULAR VOLUME 96 fl (80-97); MONOCYTES % (AUTO) 9.6 % (3-13); PLATELET COUNT 119 10^3/uL (150-450); RED BLOOD COUNT 3.77 10^6/uL (4.35-5.55); RED CELL DISTRIBUTION WIDTH 16.1 % (11.5-14.0); SEGMENTED NEUTROPHILS % (AUTO) 71.2 % (42-78); TOTAL CELLS COUNTED % (AUTO) 100 %; WHITE BLOOD COUNT 11.5 10^3/uL (4.0-10.5)
[2018-01-18 00:10] LABS: PARTIAL THROMBOPLASTIN TIME 31.4 SEC (23.5-35.8); PROTHROMBIN TIME 17.9 SEC (11.4-15.4)
--- NOTE | 2018-01-18 00:19 | ER Document Report ---
ED General - General Chief Complaint: Abdominal Pain Stated Complaint: ABDOMINAL PAIN Time Seen by Provider: 01/17/18 23:50 Notes: Patient is a 62-year-old male who presents with complaint of right upper quadrant abdominal pain has been intermittent for days but became more constant tonight. Some nausea but no vomiting. Some diarrhea. Some dark urine but no dysuria. Started having fevers as well. Temperature in the ambulance was 100.4. He is diabetic. No other chronic medical problems. He denies any chest pain. Shortness of breath. He says he quit drinking alcohol approximately a year ago. He said he used to drink almost every day. He denies history of abdominal surgeries. TRAVEL OUTSIDE OF THE [place] IN LAST 30 DAYS: No - Related Data Allergies/Adverse Reactions: No Known Allergies Allergy (Verified 12/29/16 10:27) Past Medical History - Social History Smoking Status: Unknown if Ever Smoked Frequency of alcohol use: None Drug Abuse: None Family History: Reviewed & Not Pertinent Patient has suicidal ideation: No Patient has homicidal ideation: No - Past Medical History Cardiac Medical History: Reports: Hx Hypertension Neurological Medical History: Denies: Hx Seizures Endocrine Medical History: Reports: Hx Diabetes Mellitus Type 2 Renal/ Medical History: Denies: Hx Peritoneal Dialysis Psychiatric Medical History: Denies: Hx Depression - Immunizations Immunizations up to date: Yes Hx Diphtheria, Pertussis, Tetanus Vaccination: No Review of Systems - Review of Systems Notes: My Normal Review Basic REVIEW OF SYSTEMS: CONSTITUTIONAL : Fever EENT: Denies eye, ear, throat, or mouth pain or symptoms. Denies nasal or sinus congestion. RESPIRATORY: Denies cough, cold, or chest congestion. Denies shortness of breath, difficulty breathing, or wheezing. GASTROINTESTINAL: Right upper quadrant abdominal pain. Some nausea, but no vomiting. GENITOURINARY: Denies difficulty urinating, painful urination, burning, frequency, or blood in urine. MUSCULOSKELETAL: Denies neck or back pain or joint pain or swelling. SKIN: Denies rash or skin lesions. NEUROLOGICAL: Denies altered mental status or loss of consciousness. Denies headache. Denies weakness or paralysis or loss of use of either side. Denies problems with gait or speech. Denies sensory or motor loss. ALL OTHER SYSTEMS REVIEWED AND NEGATIVE. Physical Exam - Vital signs Vitals: Temp Pulse Resp BP Pulse Ox 100.1 F 101 H 17 130/82 H 98 07/08/18 23:52 01/17/18 23:52 01/17/18 23:52 01/17/18 23:52 01/17/18 23:52 - Notes Notes: General Appearance: Well nourished, alert, cooperative, no acute distress, mild to moderate obvious discomfort. Vitals: reviewed, See vital signs table. Head: no swelling or tenderness to the head Eyes: PERRL, EOMI, Conjuctiva clear Mouth: No decreasd moisture Lungs: No wheezing, No rales, No rhonci, No accessory muscle use, good air exchange bilaterally. Heart: Normal rate, Regular rythm, No murmur, no rub Abdomen: Normal BS, soft, No rigidity, moderate right upper quadrant abdominal tenderness palpation, No guarding, no rebound, no abdominal masses, no organomegaly Extremities: strength 5/5 in all extremities, good pulses in all extremities, no swelling or tenderness in the extremities, no edema. Skin: warm, dry, appropriate color, no rash Neuro: speech clear, oriented x 3, normal affect, responds appropriately to questions. Course - Re-evaluation Re-evalutation: 01/18/18 01:29 Reevaluation patient's pain is improved with pain medicine however he still has some pain to palpation over the area. Being he has had fever the history of previous alcoholism and abdominal pain for 4 days I think is appropriate to do CT scan. Ultrasound does not show evidence of gallbladder infection at this time. I have ordered a CT scan to further evaluate the patient's abdomen. 01/18/18 05:57 His pain is completely resolved after the 1 dose of pain medication. He has been up and walking says he feels much improved. He has had some loose stool. His CT scan shows an area of enteritis where his pain was. This is likely the cause of his pain. Being that his pain is been ongoing for days I think is appropriate to treat him with antibiotics due to concern for possible bacterial enteritis. Patient is agreeable to this. We will give him some nausea medicine to help with any nausea might have. I informed him he needs to be followed up in 2 days either by us or his family doctor for reevaluation. I encourage him return to ER immediately if he has recurrent worsening pain, vomiting, recurrent fevers, bloody stool, if he feels unwell. Patient agrees with plan will be discharged home. Dictation of this chart was performed using voice recognition software; therefore, there may be some unintended grammatical errors. - Vital Signs Vital signs: Temp Pulse Resp BP Pulse Ox 100.1 F 101 H 17 130/82 H 98 01/17/18 23:52 01/17/18 23:52 01/17/18 23:52 01/17/18 23:52 01/17/18 23:52 - Laboratory Result Diagrams: 01/17/18 23:15 01/17/18 23:15 Laboratory results interpreted by me: 01/17/18 01/17/18 01/17/18 23:15 23:15 23:15 WBC 11.5 H RBC 3.77 L Hgb 12.6 L Hct 36.3 L RDW 16.1 H Plt Count 119 L PT 17.9 H Sodium 132.7 L Chloride 91 L BUN 26 H Creatinine 1.53 H Est GFR ( Amer) 56 L Est GFR (Non-Af Amer) 46 L Glucose 180 H Total Bilirubin 3.0 H Direct Bilirubin 1.3 H AST 142 H Alkaline Phosphatase 152 H Total Protein 9.3 H Urine Glucose (UA) Urine Blood Urine Urobilinogen Ur Leukocyte Esterase 01/18/18 04:20 WBC RBC Hgb Hct RDW Plt Count PT Sodium Chloride BUN Creatinine Est GFR ( Amer) Est GFR (Non-Af Amer) Glucose Total Bilirubin Direct Bilirubin AST Alkaline Phosphatase Total Protein Urine Glucose (UA) >=500 H Urine Blood SMALL H Urine Urobilinogen 4.0 H Ur Leukocyte Esterase TRACE H Discharge - Discharge Clinical Impression: Colitis Abdominal pain Qualifiers: Abdominal location: right upper quadrant Qualified Code(s): R10.11 - Right upper quadrant pain Condition: Good Disposition: HOME, SELF-CARE Additional Instructions: It appears that your abdominal pain is related to a colitis. Colitis is inflammation of the bowel that can be caused by a bacteria or virus. Being that your pain has been ongoing now for 4 days I think it is better to treat you with antibiotics in case this is a bacterial cause. We have placed you on 2 antibiotics. Please take them as prescribed. Please follow-up with your doctor in 2 days for reevaluation. If you are unable to follow-up with your doctor please just return to the ER. Return to the ER immediately if you have worsening pain, fevers, vomiting, or feel unwell. Prescriptions: Ciprofloxacin HCl [Cipro 500 mg Tablet] 500 mg PO BID #14 tablet Metronidazole [Flagyl 500 mg Tablet] 500 mg PO Q6H #28 tablet Ondansetron [Zofran Odt 4 mg Tablet] 1 tab PO Q4H PRN #15 tab.rapdis PRN Reason: For Nausea/Vomiting Referrals: AMIRA MURPHY FNP [NURSE PRACTITIONER] - 01/20/18
--- NOTE | 2018-01-18 00:32 | RADIOLOGY REPORT (SQ) ---
Clinical History : fever , Exam : Portable AP view of the chest 01/17/2018 11:56 PM CDT Comparisons : Portable AP view of the chest July 23, 2017 Findings : The lungs are low in volume which accentuates the pulmonary vasculature. There is otherwise no focal consolidation or pleural effusion.. The heart is normal in size. The mediastinal contours are normal in appearance. The thoracic spine is age appropriate. The shoulders are unremarkable. Limited evaluation of the upper abdomen demonstrates no gross abnormalities. Impression: Low lung volumes, otherwise no acute cardiopulmonary disease.
[2018-01-18 00:46] LABS: ALANINE AMINOTRANSFERASE 55 U/L (21-72); ALBUMIN 4.1 g/dL (3.5-5.0); ALKALINE PHOSPHATASE 152 U/L (38-126); ANION GAP 16 (5-19); ASPARTATE AMINO TRANSFERASE 142 U/L (17-59); BILIRUBIN,DIRECT 1.3 mg/dL (0.0-0.4); BLOOD UREA NITROGEN 26 mg/dL (7-20); CALCIUM 8.8 mg/dL (8.4-10.2); CARBON DIOXIDE 26 mmol/L (22-30); CHLORIDE 91 mmol/L (98-107); GLUCOSE 180 mg/dL (75-110); POTASSIUM 4.3 mmol/L (3.6-5.0); SODIUM 132.7 mmol/L (137-145); TOTAL PROTEIN 9.3 g/dL (6.3-8.2)
[2018-01-18] MEDS ORDERED: NORMAL SALINE 500 ML IV ONE (01:27)
--- NOTE | 2018-01-18 01:59 | RADIOLOGY REPORT (SQ) ---
ULTRASOUND ABDOMEN limited Clinical history: 62-year-old male with right upper quadrant pain. Technique: Multiple sonographic images are performed of the right upper quadrant abdomen using both grayscale and color Doppler. Comparison: CT dated 14 April 2017 Findings: Pancreas: Pancreas is not well visualized due to overlying bowel gas. IVC and Aorta: IVC not well visualized due to overlying bowel gas. Portions of the aorta included in the field of view measures within normal: Proximal aorta measures 2.5 cm. The mid aorta measures 1.9 cm. The distal aorta measures 1.7 cm. Liver: The liver appears to be measured within normal with right lobe measures only 14.6 cm. Parenchyma demonstrates increased echogenicity. No sonographic evidence of a mass. Portal vein is patent with hepatopedal blood flow. Biliary: The gallbladder lumen is within normal limits. There is no pericholecystic free fluid. There is no sonographic Whittington sign. The gallbladder wall measures 2.2 mm. The common bile duct measures 4.1 mm. Kidneys: Right kidney: Right kidney measures 11.0 cm. No hydronephrosis nor obstructive stone. Blood flow to the right kidney is within normal limits. IMPRESSION: 1. Hepatic steatosis. 2. Limited evaluation of midline structures due to overlying bowel gas. 3. Otherwise unremarkable ultrasound of the abdomen for acute pathology.
[2018-01-18 05:15] LABS: APPEARANCE,URINE CLEAR; BILIRUBIN,URINE NEGATIVE (NEGATIVE); COLOR,URINE AMBER; GLUCOSE, URINE >=500 mg/dL (NEGATIVE); KETONES,URINE NEGATIVE (NEGATIVE); LEUKOCYTE ESTERASE,URINE TRACE (NEGATIVE); NITRITE,URINE NEGATIVE (NEGATIVE); PROTEIN,URINE NEGATIVE (NEGATIVE); URINE SPECIFIC GRAVITY 1.021
--- NOTE | 2018-01-18 05:16 | RADIOLOGY REPORT (SQ) ---
EXAM DESCRIPTION: CT ABDOMEN PELVIS WITH IV CONTRAST COMPLETED DATE/TME: 01/18/2018 00:00 CLINICAL HISTORY: 62 years, Male, right sided abdominal pain COMPARISON: 04/14/2017 TECHNIQUE: Axial CT images of the abdomen and pelvis were obtained after the administration of IV and oral contrast. Sagittal and coronal reformats were performed. [facility] [id number] Images stored on PACS. All CT scanners at this facility use dose modulation, iterative reconstruction, and/or weight based dosing when appropriate to reduce radiation dose to as low as reasonably achievable (ALARA). [facility]: Dose Right [facility]: CareDose [facility]: Dose Right [facility]: Teradose 4D [facility]: [employer] LIMITATIONS: None. FINDINGS: The lung bases are clear. The liver, gallbladder, pancreas, spleen, and adrenal glands are unremarkable. Both kidneys appear unremarkable. There is no evidence of hydronephrosis. There is no intraperitoneal free air or fluid. There is no lymphadenopathy. The stomach is unremarkable. There is mild distention of the fluid-filled small bowel. The appendix is not uniquely identified, however there are no inflammatory changes within the right lower quadrant. There is mild distention of the fluid-filled colon. There is a left inguinal hernia containing a short segment of colon with no evidence of bowel obstruction or bowel ischemia. There are mild atherosclerotic calcifications of the abdominal aorta. No evidence of an aneurysm. The urinary bladder and prostate gland are unremarkable. There are no lytic or blastic bone lesions. IMPRESSION: Mild distention of the fluid-filled small bowel and colon, which is nonspecific and may be due to an enterocolitis or diarrhea. Left inguinal hernia containing a short segment of colon with no evidence of bowel ischemia or obstruction. TECHNICAL DOCUMENTATION: Quality ID # [id number]: Final reports with documentation of one or more dose reduction techniques (e.g., Automated exposure control, adjustment of the mA and/or kV according to patient size, use of iterative reconstruction technique) 2010 [employer]- All Rights Reserved
[2018-01-18] MEDS ORDERED: METRONIDAZOLE 500 MG TABLET PO ONE (05:42)
[2018-01-18] MEDS ORDERED: CIPROFLOXACIN HCL 500 MG TABLET PO ONE (05:42)
[2018-01-18 06:04] VITALS: BP 111/76
== END 2018-01-18 06:03 | disposition home or self-care (01) ==
LOC: ER 23:46
DX: K52.9 Noninfective gastroenteritis and colitis, unspecified (principal); R10.11 Right upper quadrant pain; E11.9 Type 2 diabetes mellitus without complications; I10 Essential (primary) hypertension
CPT/HCPCS: 99284; 96361; 96374; 36415; 83690; 85025; 85610; 85730; 80053; 81001; 71045; 76705; 93976; 74177; A9270 ×2; J1170; J7040

== ENCOUNTER 2018-02-13 14:30 | Emergency (ER) | payer MEDICARE, MEDICAID ==
--- NOTE | 2018-02-13 14:59 | ER Document Report ---
ED Medical Screen (RME) - General Chief Complaint: Abdominal Pain Stated Complaint: ABDOMINAL PAIN Time Seen by Provider: 02/13/18 14:38 Notes: 62-year-old male to the emergency department complaining of nausea and vomiting. Right leg pain. Patient mumbling cannot really understand what he is saying. Uncertain exactly why he is here. Mostly complaining of leg pain. Apparently came in by ambulance. There is a emesis bag with small amount of vomit in it. I have greeted and performed a rapid initial assessment of this patient. A comprehensive ED assessment and evaluation of the patient, analysis of test results and completion of the medical decision making process will be conducted by additional ED providers. TRAVEL OUTSIDE OF THE [place] IN LAST 30 DAYS: No - Related Data Allergies/Adverse Reactions: minerals [From [employer]] Allergy (Verified 02/13/18 14:32) vitamin B complex and C [From [employer]] Allergy (Verified 02/13/18 14:32) vitamin E (d-alpha tocopherol) [From [employer]] Allergy (Verified 02/13/18 14:32) Past Medical History - Social History Frequency of alcohol use: Social Drug Abuse: None - Past Medical History Cardiac Medical History: Reports: Hx Hypertension Neurological Medical History: Denies: Hx Seizures Endocrine Medical History: Reports: Hx Diabetes Mellitus Type 2 Renal/ Medical History: Denies: Hx Peritoneal Dialysis Psychiatric Medical History: Denies: Hx Depression - Immunizations Immunizations up to date: Yes Hx Diphtheria, Pertussis, Tetanus Vaccination: No Physical Exam - Vital signs Vitals: Temp Pulse Resp BP Pulse Ox 99.0 F 88 20 117/91 H 98 02/13/18 14:35 02/13/18 14:35 02/13/18 14:35 02/13/18 14:35 02/13/18 14:35 Course - Vital Signs Vital signs: Temp Pulse Resp BP Pulse Ox 99.0 F 88 20 117/91 H 98 02/13/18 14:35 02/13/18 14:35 02/13/18 14:35 02/13/18 14:35 02/13/18 14:35 Doctor's Discharge - Discharge Referrals: YASSINE JOSEPH MD [Primary Care Provider] - Follow up as needed
[2018-02-13] MEDS ORDERED: NORMAL SALINE 1000 ML 1,000 ML IV ONE (15:37)
[2018-02-13] MEDS ORDERED: ONDANSETRON HCL INJ/PF 4 MG/2 ML SDV IV ONE (15:38)
[2018-02-13] MEDS ORDERED: MORPHINE SULFATE 10 MG/ML INJ IV ONE (15:39)
[2018-02-13 15:51] LABS: ABSOLUTE LYMPHOCYTES (AUTO) 1.8 10^3/uL (0.5-4.7); ABSOLUTE MONOCYTES (AUTO) 0.6 10^3/uL (0.1-1.4); ABSOLUTE NEUT (AUTO) 4.2 10^3/uL (1.7-8.2); BASOPHILS % (AUTO) 0.4 % (0-2); EOSINOPHILS % (AUTO) 0.3 % (0-6); HEMATOCRIT 34.8 % (37.9-51.0); LYMPHOCYTES % (AUTO) 26.7 % (13-45); MEAN CORPUSCULAR HEMOGLOBIN 33.1 pg (27.0-33.4); MEAN CORPUSCULAR HGB CONC 34.5 g/dL (32.0-36.0); MEAN CORPUSCULAR VOLUME 96 fl (80-97); MONOCYTES % (AUTO) 9.6 % (3-13); PLATELET COUNT 125 10^3/uL (150-450); RED BLOOD COUNT 3.63 10^6/uL (4.35-5.55); RED CELL DISTRIBUTION WIDTH 14.4 % (11.5-14.0); TOTAL CELLS COUNTED % (AUTO) 100 %; WHITE BLOOD COUNT 6.7 10^3/uL (4.0-10.5)
[2018-02-13 16:11] LABS: ALANINE AMINOTRANSFERASE 79 U/L (21-72); ALBUMIN 3.8 g/dL (3.5-5.0); ALKALINE PHOSPHATASE 138 U/L (38-126); ANION GAP 18 (5-19); ASPARTATE AMINO TRANSFERASE 173 U/L (17-59); BILIRUBIN,DIRECT 0.4 mg/dL (0.0-0.4); BILIRUBIN,TOTAL 1.4 mg/dL (0.2-1.3); BLOOD UREA NITROGEN 7 mg/dL (7-20); CALCIUM 8.6 mg/dL (8.4-10.2); CARBON DIOXIDE 25 mmol/L (22-30); CHLORIDE 103 mmol/L (98-107); GLUCOSE 155 mg/dL (75-110); LIPASE 68.3 U/L (23-300); POTASSIUM 3.3 mmol/L (3.6-5.0); SODIUM 146.2 mmol/L (137-145); TOTAL PROTEIN 9.5 g/dL (6.3-8.2)
[2018-02-13] MEDS ORDERED: KETOROLAC TROMETHAMINE INJ/PF 30 MG/1 ML SDV IV ONE (16:39)
--- NOTE | 2018-02-13 16:56 | RADIOLOGY REPORT (SQ) ---
EXAM DESCRIPTION: FEMUR RIGHT COMPLETED DATE/TIME: 02/13/2018 4:42 pm REASON FOR STUDY: right femur pain COMPARISON: None. NUMBER OF VIEWS: Two views. TECHNIQUE: Two radiographic images acquired of the right femur to include hip and knee in at least o ne projection. LIMITATIONS: None. FINDINGS: MINERALIZATION: Normal. BONES: No acute fracture. No worrisome bone lesions. SOFT TISSUES: No obvious swelling or foreign body. OTHER: Very mild joint space narrowing at the right hip joint. Mild medial compartment right knee angel int space narrowing IMPRESSION: NEGATIVE STUDY OF THE RIGHT FEMUR. NO RADIOGRAPHIC EVIDENCE OF ACUTE INJURY. TECHNICAL DOCUMENTATION: JOB ID: [id number] [employer]- All Rights Reserved Reading location - IP/workstation name: [email or web address]
--- NOTE | 2018-02-13 16:58 | RADIOLOGY REPORT (SQ) ---
EXAM DESCRIPTION: CHEST SINGLE VIEW COMPLETED DATE/TIME: 02/13/2018 4:42 pm REASON FOR STUDY: chest pain COMPARISON: Chest films 03/19/2016, 09/12/2011 EXAM PARAMETERS: NUMBER OF VIEWS: One view. TECHNIQUE: Single frontal radiographic view of the chest acquired. RADIATION DOSE: NA LIMITATIONS: Lord[employer] portable chest film FINDINGS: LUNGS AND PLEURA: No opacities, masses or pneumothorax. No pleural effusion. MEDIASTINUM AND HILAR STRUCTURES: Tortuous uncoiled thoracic aorta. No hilar enlargement HEART AND VASCULAR STRUCTURES: Heart normal in size. Normal vasculature. BONES: Old healed right 1st rib fracture and old healed right lateral 6th and 7th rib fractures. HARDWARE: None in the chest. OTHER: No other significant finding. IMPRESSION: No acute findings TECHNICAL DOCUMENTATION: JOB ID: [id number] [employer]- All Rights Reserved Reading location - IP/workstation name: [email or web address]
--- NOTE | 2018-02-13 16:59 | RADIOLOGY REPORT (SQ) ---
EXAM DESCRIPTION: HIP RIGHT AP/LATERAL COMPLETED DATE/TIME: 02/13/2018 4:42 pm REASON FOR STUDY: right le pain COMPARISON: CT abdomen pelvis 01/18/2018 NUMBER OF VIEWS: Two views. TECHNIQUE: AP pelvis and additional frog-leg view of the right hip. LIMITATIONS: None. FINDINGS: MINERALIZATION: Normal. RIGHT HIP: No fracture or dislocation. No worrisome bone lesions. Moderate right hip joint space na rrowing LEFT HIP: No fracture or dislocation. No worrisome bone lesions. Mild left hip joint space narrowin g PUBIS AND ISCHIUM: No fracture. PELVIS: No fracture. SACRUM: No fracture or dislocation. No worrisome bone lesions. LOWER LUMBAR SPINE: No fracture or dislocation. No worrisome bone lesions. No significant disc disea se. SOFT TISSUES: No findings. OTHER: No other significant finding. IMPRESSION: No acute fracture. Right hip joint space narrowing from osteoarthritis TECHNICAL DOCUMENTATION: JOB ID: [id number] [employer]- All Rights Reserved Reading location - IP/workstation name: [email or web address]
[2018-02-13 17:27] LABS: VENOUS BLOOD BASE EXCESS 0.5 mmol/L; VENOUS BLOOD HCO3 26.7 mmol/L (20-32); VENOUS BLOOD PCO2 49.9 mmHg (35-63); VENOUS BLOOD PH 7.35 (7.30-7.42)
[2018-02-13] MEDS ORDERED: RINGERS SOLUTION,LACTATED 1,000 ML IV ONE (18:24)
[2018-02-13 18:59] LABS: APPEARANCE,URINE CLEAR; BILIRUBIN,URINE NEGATIVE (NEGATIVE); COLOR,URINE YELLOW; GLUCOSE, URINE >=500 mg/dL (NEGATIVE); KETONES,URINE NEGATIVE (NEGATIVE); LEUKOCYTE ESTERASE,URINE NEGATIVE (NEGATIVE); NITRITE,URINE NEGATIVE (NEGATIVE); PROTEIN,URINE NEGATIVE (NEGATIVE); UROBILINOGEN,URINE NEGATIVE mg/dL (<2.0)
[2018-02-13 19:05] VITALS: BP 125/76
--- NOTE | 2018-02-13 19:59 | ER Document Report ---
ED General - General Chief Complaint: Abdominal Pain Stated Complaint: ABDOMINAL PAIN Time Seen by Provider: 02/13/18 14:38 Mode of Arrival: Medic Information source: Patient Notes: This is a 62-year-old man with a history of hypertension, diabetes, EtOH abuse with encephalopathy in the past who was brought in by EMS because of right lower extremity pain. EMS notes that he was nauseated and vomited. He denies falling. He states he had a recent treatment for a UTI. He states that he started to develop right leg pain 3 days ago and it has gotten worse. He denies abdominal pain. He denies fever. Reports decreased p.o. intake. TRAVEL OUTSIDE OF THE [place] IN LAST 30 DAYS: No - HPI Onset: Last week Onset/Duration: Gradual Quality of pain: Dull Severity: Moderate Pain Level: 3 Associated symptoms: Nausea, Vomiting, Other - Right. denies: Chest pain, Fever , Shortness of breath Exacerbated by: Movement - leg pain Relieved by: Remaining still Similar symptoms previously: Yes Recently seen / treated by doctor: Yes - Related Data Allergies/Adverse Reactions: minerals [From [employer]] Allergy (Verified 02/13/18 14:32) vitamin B complex and C [From [employer]] Allergy (Verified 02/13/18 14:32) vitamin E (d-alpha tocopherol) [From [employer]] Allergy (Verified 02/13/18 14:32) Past Medical History - General Information source: Patient, [facility] Records - Social History Smoking Status: Current Some Day Smoker Cigarette use (# per day): Yes - Half a pack per day Chew tobacco use (# tins/day): No Frequency of alcohol use: Social Drug Abuse: None Lives with: Family Family History: Reviewed & Not Pertinent Patient has suicidal ideation: No Patient has homicidal ideation: No - Past Medical History Cardiac Medical History: Reports: Hx Hypertension Neurological Medical History: Denies: Hx Seizures Endocrine Medical History: Reports: Hx Diabetes Mellitus Type 2 Renal/ Medical History: Denies: Hx Peritoneal Dialysis Psychiatric Medical History: Denies: Hx Depression Surgical Hx: Negative - Immunizations Immunizations up to date: Yes Hx Diphtheria, Pertussis, Tetanus Vaccination: No Review of Systems - Review of Systems Constitutional: denies: Chills, Fever EENT: No symptoms reported Cardiovascular: No symptoms reported Respiratory: No symptoms reported Gastrointestinal: See HPI Genitourinary: No symptoms reported Male Genitourinary: No symptoms reported Musculoskeletal: See HPI Skin: No symptoms reported Hematologic/Lymphatic: No symptoms reported Neurological/Psychological: Weakness. denies: Sensory change, Loss of power Physical Exam - Vital signs Vitals: Temp Pulse Resp BP Pulse Ox 99.0 F 88 20 117/91 H 98 02/13/18 14:35 02/13/18 14:35 02/13/18 14:35 02/13/18 14:35 02/13/18 14:35 Notes: Physical exam: GENERAL: 62-year-old man, alert and oriented 3, appears dehydrated HEAD: Atraumatic, normocephalic. EYES: Pupils equal round and reactive to light, extraocular movements intact, sclera anicteric, conjunctiva are normal. ENT: TMs normal, nares patent, oropharynx clear without exudates. Dry mucous membranes. NECK: Normal range of motion, supple without obvious mass. LUNGS: Breath sounds clear to auscultation bilaterally and equal. No wheezes rales or rhonchi. HEART: Regular rate and rhythm without murmurs, rubs or gallops. Penis: Testes 2. Patient has a reducible left inguinal hernia (the opposite side where his leg pain is). Patient has no pain or swelling in the right inguinal region. ABDOMEN: Soft, normoactive bowel sounds. No tenderness to palpation. No guarding, no rebound. No masses appreciated. EXTREMITIES: Patient does have significant pain with palpation of the femur and range of motion as well as positive straight leg raising. Patient has no skin changes or evidence of trauma. Distal dorsal pedal pulses very good and his cap refill is very good. There is no unilateral swelling. NEUROLOGICAL: Cranial nerves II through XII grossly intact. Normal speech, moving all extremities. PSYCH: Normal mood, normal affect. SKIN: Warm, Dry, normal turgor, no rashes or lesions noted. Course - Re-evaluation Re-evalutation: 02/13/18 20:40 Patient did have some nausea prior to arrival and was given some antinausea medicine by EMS. He did appear quite dry and his lactic acid was elevated. I see no signs of an section. He has been afebrile and his white count is normal. There is no evidence of cellulitis. He definitely improved after IV fluids and is more energetic. His pain improved with a small dose of pain medicine and Toradol. We did ambulate him around the room and he did well. He is requesting to go home. - Vital Signs Vital signs: Temp Pulse Resp BP Pulse Ox 98.0 F 97 18 125/76 95 02/13/18 19:04 02/13/18 19:04 02/13/18 19:04 02/13/18 19:04 02/13/18 19:04 - Laboratory Result Diagrams: 02/13/18 13:10 02/13/18 13:10 Laboratory results interpreted by me: 02/13/18 02/13/18 02/13/18 13:10 13:10 17:11 RBC 3.63 L Hgb 12.0 L Hct 34.8 L RDW 14.4 H Plt Count 125 L Sodium 146.2 H Potassium 3.3 L Glucose 155 H Lactic Acid 4.4 H Total Bilirubin 1.4 H AST 173 H ALT 79 H Alkaline Phosphatase 138 H Total Protein 9.5 H Urine Glucose (UA) 02/13/18 18:25 RBC Hgb Hct RDW Plt Count Sodium Potassium Glucose Lactic Acid Total Bilirubin AST ALT Alkaline Phosphatase Total Protein Urine Glucose (UA) >=500 H - Diagnostic Test Radiology reviewed: Image reviewed, Reports reviewed - X-rays of the right hip and femur show no evidence of fracture. Chest x-ray is clear. Discharge - Discharge Clinical Impression: Dehydration, Leg pain, Arthritis Condition: Stable Disposition: HOME, SELF-CARE Additional Instructions: Recommendations: I want you to follow-up with Dr. Joseph Thursday: Call the office in the morning and tell them the ER doctor wanted she seen. Take the pain medicine as needed. Take the nausea medicine (Zofran) as needed for nausea. Drink plenty of fluids. Continue your other medicines. Return to the emergency room for worsening pain, fever, chills or any concerns or getting worse. Prescriptions: Morphine Sulfate [Morphine Ir 15 Mg Tablet] 15 mg PO Q6HP PRN #7 tablet PRN Reason: Referrals: YASSINE JOSEPH MD [Primary Care Provider] - 02/15/18
[2018-02-13] MEDS ORDERED: ONDANSETRON ODT 4 MG TAB (6 TAB/ER DISP) PO PRN (20:35)
--- NOTE | 2018-02-14 15:04 | XCELERA REPORT ---
[address] [address] Lower Extremity Venous Evaluation Name: LOI RUVALCABA Age: 62 yrs Gender: Male : 1955 Patient Status: Emergency Patient Location: ER Study Date: 02/13/2018 04:28 PM Procedure: Color flow and duplex imaging of the veins of the right lower extremity as well as the left Common Femoral vein. Reason For Study: rle pain Ordering Physician: STEPHANIE MCCAIN Performed By: Balwinder Mercer Right Sided Venous Evaluation Normal vessel filling wall to wall, compression and augmentation as well as Colour flow down to the infrageniculate veins. Left Sided Venous Evaluation The left common femoral vein is fully compressible. Spontaneous and phasic flow is present in the left common femoral vein. Interpretation Summary No duplex evidence of DVT or obstruction in the right lower extremity nor in the left Common Femoral vein. : STEPHANIE MCCAIN [place]
== END 2018-02-13 21:12 | disposition home or self-care (01) ==
LOC: ER 14:30
DX: M89.8X5 Other specified disorders of bone, thigh (principal); M19.90 Unspecified osteoarthritis, unspecified site; R11.2 Nausea with vomiting, unspecified; E86.0 Dehydration; I10 Essential (primary) hypertension; E11.9 Type 2 diabetes mellitus without complications; R53.1 Weakness; K40.90 Unilateral inguinal hernia, without obstruction or gangrene, not specified as recurrent; F17.210 Nicotine dependence, cigarettes, uncomplicated; Z87.440 Personal history of urinary (tract) infections; Z88.8 Allergy status to other drugs, medicaments and biological substances
CPT/HCPCS: 99285; 96361; 96374; 96375; 36415; 83690; 84550; 85025; 80053; 81001; 82803; 83605; 93971 ×2; 71045; 73552; 73502; J1885; J2270; J2405; J7030; J7120; A9270

== ENCOUNTER 2018-02-16 11:29 | Emergency (ER) | payer MEDICARE, MEDICAID ==
[2018-02-16 12:07] VITALS: BP 93/52
[2018-02-16] MEDS ORDERED: EPINEPHRINE INJ/PF 1 MG/1 ML AMPULE IM ONE (12:37)
[2018-02-16] MEDS ORDERED: METHYLPREDNISOLONE INJ 125 MG/2 ML SDV IM ONE (12:37)
--- NOTE | 2018-02-16 13:41 | ER Document Report ---
ED Extremity Problem, Lower - General Chief Complaint: Leg Pain Stated Complaint: LEG PAIN Time Seen by Provider: 02/16/18 12:37 Mode of Arrival: Wheelchair Information source: Patient Notes: Chief complaint: Right hip pain History of complain:( obtained from----patient) 62 years old male with a known history of right hip osteoarthritis, was seen here last Thursday, he claims that he also saw his primary care physician, taking morphine sulfate 15 mg tablets every 6 hours, presents today with persistent pain over the right hip radiating down the leg. No new injuries. No other constitutional symptoms. Onset: Gradual Duration: Long-standing Severity: Moderate Quality: Sharp Context: Movement Exacerbating factor and relieving factors: Any flexion extension increases the pain REVIEW OF SYSTEMS: CONSTITUTIONAL : Denies fever, chills, or sweats. Denies recent illness. EENT: Denies eye, ear, throat, or mouth pain or symptoms. Denies nasal or sinus congestion or discharge. Denies throat, tongue, or mouth swelling or difficulty swallowing. CARDIOVASCULAR: Denies chest pain. Denies palpitations or racing or irregular heart beat. Denies ankle edema. RESPIRATORY: Denies cough, cold, or chest congestion. Denies shortness of breath, difficulty breathing, or wheezing. GASTROINTESTINAL: Denies distention. Denies nausea, vomiting, or diarrhea. Denies blood in vomitus, stools, or per rectum. Denies black, tarry stools. Denies constipation. GENITOURINARY: Denies difficulty urinating, painful urination, burning, frequency, blood in urine, or discharge. FEMALE GENITOURINARY: Denies vaginal bleeding, heavy or abnormal periods, irregular periods. Denies vaginal discharge or odor. MUSCULOSKELETAL: SKIN: Denies rash, lesions or sores. HEMATOLOGIC : Denies easy bruising or bleeding. LYMPHATIC: Denies swollen, enlarged glands. NEUROLOGICAL: Denies confusion or altered mental status. Denies passing out or loss of consciousness. Denies dizziness or lightheadedness. Denies headache. Denies weakness or paralysis or loss of use of either side. Denies problems with gait or speech. Denies sensory loss, numbness, or tingling. Denies seizures. PSYCHIATRIC: Denies anxiety or stress. Denies depression, suicidal ideation, or homicidal ideation. ALL OTHER SYSTEMS REVIEWED AND NEGATIVE. PHYSICAL EXAMINATION: GENERAL: Well-appearing, well-nourished and in mild to moderate acute distress. HEAD: Atraumatic, normocephalic. EYES: Pupils equal round and reactive to light, extraocular movements intact, conjunctiva are normal. ENT: Nares patent, oropharynx clear without exudates. Moist mucous membranes. NECK: Normal range of motion, supple without lymphadenopathy LUNGS: Breath sounds clear to auscultation bilaterally and equal. No wheezes rales or rhonchi. HEART: Regular rate and rhythm without murmurs ABDOMEN: Soft, nontender, nondistended abdomen. No guarding, no rebound. No masses appreciated. Examination of genitals-deferred Musculoskeletal: Sharp pain noted with a slight movement of the right hip. No point tenderness noted., no pitting or edema. No cyanosis NEUROLOGICAL: Cranial nerves grossly intact. Normal speech, normal gait. Normal sensory, motor exams PSYCH: Normal mood, normal affect. SKIN: Warm, Dry, normal turgor, no rashes or lesions noted. Dictation was performed using [employer] voice recognition software TRAVEL OUTSIDE OF THE [place] IN LAST 30 DAYS: No - HPI Notes: Dictated - Related Data Allergies/Adverse Reactions: minerals [From [employer]] Allergy (Verified 02/13/18 14:32) vitamin B complex and C [From [employer]] Allergy (Verified 02/13/18 14:32) vitamin E (d-alpha tocopherol) [From [employer]] Allergy (Verified 02/13/18 14:32) Past Medical History - Social History Smoking Status: Current Every Day Smoker Frequency of alcohol use: Heavy Family History: Reviewed & Not Pertinent - Past Medical History Cardiac Medical History: Reports: Hx Hypertension Neurological Medical History: Denies: Hx Seizures Endocrine Medical History: Reports: Hx Diabetes Mellitus Type 2 Renal/ Medical History: Denies: Hx Peritoneal Dialysis Psychiatric Medical History: Denies: Hx Depression - Immunizations Immunizations up to date: Yes Hx Diphtheria, Pertussis, Tetanus Vaccination: No Review of Systems - Review of Systems Notes: Dictated Physical Exam - Vital signs Vitals: Temp Pulse Resp BP Pulse Ox 99.1 F 118 H 16 93/52 L 97 02/16/18 12:04 02/16/18 12:04 02/16/18 12:04 02/16/18 12:02/16/18 12:04 - Notes Notes: Dictated Course - Re-evaluation Re-evalutation: 02/16/18 13:39 His past visits were reviewed, x-ray was reviewed, he has severe osteoarthritis of the right hip. Nothing we can do in the ER he asked to see an orthopedic surgeon which was communicated to him. - Vital Signs Vital signs: Temp Pulse Resp BP Pulse Ox 99.1 F 118 H 16 93/52 L 97 02/16/18 12:04 02/16/18 12:04 02/16/18 12:04 02/16/18 12:04 02/16/18 12:04 Discharge - Discharge Clinical Impression: Chronic pain syndrome Osteoarthritis of right hip Qualifiers: Osteoarthritis type: primary Qualified Code(s): M16.11 - Unilateral primary osteoarthritis, right hip Condition: Fair Disposition: HOME, SELF-CARE Instructions: Osteoarthritis ([facility]) Referrals: YASSINE JOSEPH MD [Primary Care Provider] - Follow up as needed
== END 2018-02-16 14:19 | disposition home or self-care (01) ==
LOC: ER 11:29
DX: M16.11 Unilateral primary osteoarthritis, right hip (principal); G89.4 Chronic pain syndrome; M25.551 Pain in right hip; M79.604 Pain in right leg; Z79.899 Other long term (current) drug therapy; F17.200 Nicotine dependence, unspecified, uncomplicated; I10 Essential (primary) hypertension; E11.9 Type 2 diabetes mellitus without complications
CPT/HCPCS: 99283

== ENCOUNTER 2018-02-18 19:33 | Emergency (ER) | payer MEDICARE, MEDICAID ==
--- NOTE | 2018-02-18 22:30 | RADIOLOGY REPORT (SQ) ---
EXAM DESCRIPTION: HIP RIGHT AP/LATERAL COMPLETED DATE/TIME: 02/18/2018 10:20 pm REASON FOR STUDY: pain COMPARISON: 02/13/2018 NUMBER OF VIEWS: Two views. TECHNIQUE: AP pelvis and additional frog-leg view of the right hip. LIMITATIONS: None. FINDINGS: MINERALIZATION: Normal. RIGHT HIP: Joint space narrowing. Marginal osteophytes on the femoral head. No fracture or dislocat ion. LEFT HIP: Mild joint space narrowing. PUBIS AND ISCHIUM: No fracture. PELVIS: No fracture. SACRUM: No fracture or dislocation. No worrisome bone lesions. LOWER LUMBAR SPINE: No fracture or dislocation. No worrisome bone lesions. No significant disc disea se. SOFT TISSUES: No findings. OTHER: No other significant finding. IMPRESSION: Degenerative joint disease. No acute abnormality. TECHNICAL DOCUMENTATION: JOB ID: [id number] [employer]- All Rights Reserved Reading location - IP/workstation name: [email or web address]
--- NOTE | 2018-02-18 22:34 | RADIOLOGY REPORT (SQ) ---
EXAM DESCRIPTION: CHEST 2 VIEWS COMPLETED DATE/TIME: 02/18/2018 10:20 pm REASON FOR STUDY: fever COMPARISON: 02/13/2018 EXAM PARAMETERS: NUMBER OF VIEWS: two views TECHNIQUE: Digital Frontal and Lateral radiographic views of the chest acquired. RADIATION DOSE: NA LIMITATIONS: none FINDINGS: LUNGS AND PLEURA: No opacities, masses or pneumothorax. No pleural effusion. MEDIASTINUM AND HILAR STRUCTURES: No masses or contour abnormalities. HEART AND VASCULAR STRUCTURES: Heart size is borderline. There is no pulmonary edema. BONES: No acute findings. HARDWARE: None in the chest. OTHER: No other significant finding. IMPRESSION: Borderline heart size with no pulmonary edema. TECHNICAL DOCUMENTATION: JOB ID: [id number] [employer]- All Rights Reserved Reading location - IP/workstation name: [email or web address]
--- NOTE | 2018-02-18 23:26 | ER Document Report ---
ED General - General Information source: Patient TRAVEL OUTSIDE OF THE U.[place]. IN LAST 30 DAYS: No <ESPERANZA MOORE - Last Filed: 02/19/18 04:40> <KONRAD CHIANG - Last Filed: 02/19/18 04:43> - General Chief Complaint: Hip Pain Stated Complaint: HIP PAIN Time Seen by Provider: 02/18/18 23:20 Notes: 62 y.o male with HTN and type 2 DM presents to the ED for the 3rd time this week for RT hip pain of onset one month ago. Pt reports that his pain is worsening and reports some intermittent radiation down to his RLE above the knee. He also reports trouble lifting his RLE and trouble walking because he feels as if his hip is going to give out. Pt reports that he has seen his primary care physician, Dr. Joseph, concerning his pain and has tried taking Rx pain medication but is currently without any relief. Pt admits to some urinary urgency and the inability to make it the restroom in time to urinate. He denies urinary retention, loss of bowel control, numbness or tingling to his RLE. Pt denies any recent fall or injury to his hip. Pt denies seeing an orthopedic surgeon for his sx. (ESPERANZA MOORE) - Related Data Allergies/Adverse Reactions: minerals [From [employer] Stress] Allergy (Verified 02/18/18 19:34) vitamin B complex and C [From [employer] Stress] Allergy (Verified 02/18/18 19:34) vitamin E (d-alpha tocopherol) [From [employer]] Allergy (Verified 02/18/18 19:34) Past Medical History - General Information source: Patient - Social History Smoking Status: Never Smoker Chew tobacco use (# tins/day): No Frequency of alcohol use: None - quit drinking Drug Abuse: None Family History: Reviewed & Not Pertinent Patient has suicidal ideation: No Patient has homicidal ideation: No - Past Medical History Cardiac Medical History: Reports: Hx Hypertension Endocrine Medical History: Reports: Hx Diabetes Mellitus Type 2 Renal/ Medical History: Denies: Hx Peritoneal Dialysis - Immunizations Immunizations up to date: Yes Hx Diphtheria, Pertussis, Tetanus Vaccination: No <ESPERANZA MOORE - Last Filed: 02/19/18 04:40> Review of Systems - Review of Systems Constitutional: No symptoms reported EENT: No symptoms reported Cardiovascular: No symptoms reported Respiratory: No symptoms reported Gastrointestinal: No symptoms reported Genitourinary: See HPI, Urgency. denies: Incontinence, Retention Male Genitourinary: No symptoms reported Musculoskeletal: See HPI, Joint pain - RT hip, Other - RLE pain Skin: No symptoms reported Hematologic/Lymphatic: No symptoms reported Neurological/Psychological: See HPI. denies: Numbness, Tingling -: Yes All other systems reviewed and negative <ESPERANZA MOORE - Last Filed: 02/19/18 04:40> Physical Exam <ESPERANZA MOORE - Last Filed: 02/19/18 04:40> <KONRAD CHIANG - Last Filed: 02/19/18 04:43> - Vital signs Vitals: Temp Pulse Resp BP Pulse Ox 100.1 F 106 H 17 116/59 L 97 02/18/18 19:39 02/18/18 19:39 02/18/18 19:39 02/18/18 19:39 02/18/18 19:39 - Notes Notes: PHYSICAL EXAM GENERAL: Alert, interacts well. No acute distress. HEAD: Normocephalic, atraumatic. EYES: Pupils equal, round, and reactive to light. Extraocular movements intact. ENT: Oral mucosa moist, tongue midline. NECK: Full range of motion. Supple. Trachea midline. LUNGS: Clear to auscultation bilaterally, no wheezes, rales, or rhonchi. No respiratory distress. HEART: Regular rate and rhythm. No murmurs, gallops, or rubs. ABDOMEN: Soft, non-tender. Non-distended. Bowel sounds present in all 4 quadrants. No guarding, rebound, or rigidity. EXTREMITIES: 5/5 strength to the left lower extremity, is able to resist my efforts. Able to press down with RT foot placed flat on the bed. Pt does not elevate RLE when requested but when I place him in a position with his hip and leg flexed he is able to maintain that position. Mildly tender to palpate the RT greater trochanter. Moves all other extremities spontaneously. No edema. Radial and dorsalis pedis pulses 2/4 bilaterally. No cyanosis. NEUROLOGICAL: Alert and oriented x3. Normal speech. Biceps and patellar DTRs 2+ bilaterally. PSYCH: Normal affect, normal mood. SKIN: Warm, dry, normal turgor. No rashes or lesions noted. (ESPERANZA MOORE) Course - Laboratory Result Diagrams: 02/18/18 22:58 02/18/18 22:58 <ESPERANZA MOORE - Last Filed: 02/19/18 04:40> - Laboratory Result Diagrams: 02/18/18 22:58 02/18/18 22:58 <KONRAD CHIANG - Last Filed: 02/19/18 04:43> - Re-evaluation Re-evalutation: 02/19/18 01:22 CBC shows leukocytosis of 12.7, there is anemia with hemoglobin 10.4, INR slightly prolonged at 1.38, chemistries show low potassium at 3.1 which is repleted by mouth, BUN slightly elevated at 23 otherwise unremarkable, lactic acid normal, glucose elevated at 309, hip x-ray shows severe osteoarthritis, chest x-ray shows no acute process, CT scan of the right hip reveals a sclerotic lesion in the right ilium that likely represents a bony island, no effusion is identified, there is severe osteoarthritis noted, there is no evidence of occult fracture. Patient has not been febrile here, vital signs been stable, there is no evidence of a septic joint at this point. I do not know with the initial source of fever was. Patient has been here for 5 hours and the fever has not returned. 02/19/18 01:27 Low potassium has been repleted by mouth. Urinalysis is still pending. 02/19/18 03:33 Urinalysis does not show any sign of infection. Uncertain of the source of the fever at this time. Patient has remained afebrile since initially dosed with Tylenol. Patient will be discharged to home. Patient is encouraged to return for any new or concerning symptoms, redness or swelling of the hip, encouraged to use a walker that he already has at home. Follow-up with orthopedic surgery as an outpatient as I suspect he will need a hip replacement. (KONRAD CHIANG) - Vital Signs Vital signs: Temp Pulse Resp BP Pulse Ox 98.3 F 106 H 16 101/62 100 02/19/18 03:45 02/18/18 19:39 02/19/18 03:42 02/19/18 03:42 02/19/18 03:42 - Laboratory Laboratory results interpreted by me: 02/18/18 02/18/18 02/18/18 22:58 22:58 22:58 WBC 12.7 H RBC 3.17 L Hgb 10.4 L Hct 30.6 L Plt Count 73 L Lymphocytes % 10.0 L Absolute Neutrophils 9.8 H Absolute Monocytes 1.6 H PT 17.7 H Sodium 133.5 L Potassium 3.1 L Chloride 92 L BUN 23 H Glucose 309 H Calcium 8.1 L Direct Bilirubin 0.6 H AST 92 H Albumin 3.3 L Urine Glucose (UA) Urine Blood 02/19/18 01:00 WBC RBC Hgb Hct Plt Count Lymphocytes % Absolute Neutrophils Absolute Monocytes PT Sodium Potassium Chloride BUN Glucose Calcium Direct Bilirubin AST Albumin Urine Glucose (UA) >=500 H Urine Blood MODERATE H - EKG Interpretation by Me Additional EKG results interpreted by me: 02/19/18 03:34 EKG shows sinus rhythm at a rate of 77, left axis deviation, left anterior hemiblock, no ST segment elevations or depressions, there are T wave inversions in lead III, aVF per my interpretation. (KONRAD CHIANG) Discharge <ESPERANZA MOORE - Last Filed: 02/19/18 04:40> <KONRAD CHIANG - Last Filed: 02/19/18 04:43> - Discharge Clinical Impression: Chronic right hip pain, Hypokalemia Fever Qualifiers: Fever type: unspecified Qualified Code(s): R50.9 - Fever, unspecified Osteoarthritis of right hip Qualifiers: Osteoarthritis type: unspecified Qualified Code(s): M16.11 - Unilateral primary osteoarthritis, right hip Condition: Stable Disposition: HOME, SELF-CARE Additional Instructions: Today we did not see any sign of infection in your right hip joint. We did see severe arthritis that may require a hip replacement to relieve this pain. I did not find any cause for the fever that you had today. There was no urinary tract infection. Chest x-ray did not show any signs of pneumonia. Please use your walker at home. Please consider following up with orthopedic surgery to discuss the possibility of a hip replacement. Please return to the emergency department for any new or concerning symptoms. Referrals: YASSINE JOSEPH MD [Primary Care Provider] - Follow up in 3-5 days ANTHONY,LEANNA, MD [ACTIVE STAFF] - Follow up as needed Scribe Attestation: 02/19/18 04:43 I personally performed the services described in the documentation, reviewed and edited the documentation which was dictated to the scribe in my presence, and it accurately records my words and actions. (KONRAD CHIANG) Scribe Documentation - Scribe Written by Fredis:: Fredis Braden 02/18/18 [id number] acting as scribe for :: Ela <ESPERANZA MOORE - Last Filed: 02/19/18 04:40>
[2018-02-18 23:27] LABS: ABSOLUTE LYMPHOCYTES (AUTO) 1.3 10^3/uL (0.5-4.7); ABSOLUTE MONOCYTES (AUTO) 1.6 10^3/uL (0.1-1.4); ABSOLUTE NEUT (AUTO) 9.8 10^3/uL (1.7-8.2); BASOPHILS % (AUTO) 0.2 % (0-2); EOSINOPHILS % (AUTO) 0.1 % (0-6); HEMATOCRIT 30.6 % (37.9-51.0); HEMOGLOBIN 10.4 g/dL (13.5-17.0); MEAN CORPUSCULAR HEMOGLOBIN 32.8 pg (27.0-33.4); MEAN CORPUSCULAR HGB CONC 33.9 g/dL (32.0-36.0); MEAN CORPUSCULAR VOLUME 97 fl (80-97); MONOCYTES % (AUTO) 12.4 % (3-13); RED BLOOD COUNT 3.17 10^6/uL (4.35-5.55); RED CELL DISTRIBUTION WIDTH 13.8 % (11.5-14.0); SEGMENTED NEUTROPHILS % (AUTO) 77.3 % (42-78); TOTAL CELLS COUNTED % (AUTO) 100 %; WHITE BLOOD COUNT 12.7 10^3/uL (4.0-10.5)
[2018-02-18 23:28] LABS: VENOUS BLOOD BASE EXCESS 4.2 mmol/L; VENOUS BLOOD HCO3 29.8 mmol/L (20-32); VENOUS BLOOD PCO2 47.9 mmHg (35-63); VENOUS BLOOD PH 7.41 (7.30-7.42)
--- NOTE | 2018-02-18 23:32 | EKG REPORT ---
SEVERITY:- ABNORMAL ECG - SINUS RHYTHM LEFT AXIS DEVIATION LEFT VENTRICULAR HYPERTROPHY ABNORMAL T, CONSIDER ISCHEMIA, INFERIOR LEADS PROLONGED QT INTERVAL : Confirmed by: Chrissy Broussard MD 18-Feb-2018 23:31:35
[2018-02-18 23:40] LABS: ALANINE AMINOTRANSFERASE 39 U/L (21-72); ALBUMIN 3.3 g/dL (3.5-5.0); ALKALINE PHOSPHATASE 108 U/L (38-126); ANION GAP 16 (5-19); ASPARTATE AMINO TRANSFERASE 92 U/L (17-59); BILIRUBIN,DIRECT 0.6 mg/dL (0.0-0.4); BILIRUBIN,TOTAL 1.1 mg/dL (0.2-1.3); BLOOD UREA NITROGEN 23 mg/dL (7-20); CALCIUM 8.1 mg/dL (8.4-10.2); CARBON DIOXIDE 26 mmol/L (22-30); CHLORIDE 92 mmol/L (98-107); GLUCOSE 309 mg/dL (75-110); POTASSIUM 3.1 mmol/L (3.6-5.0); SODIUM 133.5 mmol/L (137-145)
[2018-02-18 23:44] LABS: PLATELET COUNT 73 10^3/uL (150-450)
[2018-02-18 23:49] LABS: INTERNATIONAL RATION (INR) 1.38; PROTHROMBIN TIME 17.7 SEC (11.4-15.4)
[2018-02-19] MEDS ORDERED: POTASSIUM CHLORIDE 10 MEQ CAPSULE.ER PO ONE (00:56)
--- NOTE | 2018-02-19 01:08 | RADIOLOGY REPORT (SQ) ---
EXAM DESCRIPTION: CT LOWER EXTREMITY WITHOUT IV CONTRAST COMPLETED DATE/TME: 02/18/2018 23:42 CLINICAL HISTORY: 62 years, Male, chroic right hip pain and diff ambulating COMPARISON: None. TECHNIQUE: Contiguous axial CT images of the right hip obtained without contrast. Coronal and sagittal reformatted images available. Suboptimal evaluation of the solid organs and vasculature due to lack of IV contrast. All CT scanners at this facility use dose modulation, iterative reconstruction, and/or weight based dosing when appropriate to reduce radiation dose to as low as reasonably achievable (ALARA). [facility]: Dose Right [facility]: CareDose [facility]: Dose Right [facility]: Teradose 4D [facility]: [employer] FINDINGS: Sclerotic lesion in the right ilium likely represents a bone island. Right hip joint space narrowing and marginal osteophytosis. No acute fracture identified. No fractures of the visualized pelvis. Degenerative spondylosis and facet arthropathy of the visualized lumbar spine. No acute abnormalities of the visualized portions of the lumbar spine. No acute abnormalities of the sacrum. Aortoiliac atherosclerosis. No abnormalities of visualized portions of the right kidney or urinary bladder. The prostate is not enlarged. No dilated loops of large or small bowel. IMPRESSION: 1. No right hip fracture identified. 2. Moderate to severe osteoarthritic change of the right hip. TECHNICAL DOCUMENTATION: Quality ID # 436: Final reports with documentation of one or more dose reduction techniques (e.g., Automated exposure control, adjustment of the mA and/or kV according to patient size, use of iterative reconstruction technique) 2010 [employer]- All Rights Reserved
[2018-02-19] MEDS ORDERED: OXYCODONE-ACETAMINOPHEN 5-325 MG TABLET PO ONE (01:39)
[2018-02-19 02:11] LABS: APPEARANCE,URINE CLEAR; BILIRUBIN,URINE NEGATIVE (NEGATIVE); COLOR,URINE YELLOW; GLUCOSE, URINE >=500 mg/dL (NEGATIVE); KETONES,URINE NEGATIVE (NEGATIVE); LEUKOCYTE ESTERASE,URINE NEGATIVE (NEGATIVE); NITRITE,URINE NEGATIVE (NEGATIVE); PROTEIN,URINE NEGATIVE (NEGATIVE); URINE SPECIFIC GRAVITY 1.013; UROBILINOGEN,URINE NEGATIVE mg/dL (<2.0)
[2018-02-19 03:46] VITALS: BP 101/62
== END 2018-02-19 03:50 | disposition home or self-care (01) ==
LOC: ER 19:33
DX: M25.551 Pain in right hip (principal); G89.29 Other chronic pain; E87.6 Hypokalemia; R50.9 Fever, unspecified; M16.11 Unilateral primary osteoarthritis, right hip; I10 Essential (primary) hypertension; E11.9 Type 2 diabetes mellitus without complications
CPT/HCPCS: 93005; 99284; 36415; 87040; 87086; 85025; 85610; 87077; 80053; 81001; 82803; 83605; 71046; 73502; 73700; 93010; A9270 ×2

== ENCOUNTER 2018-09-26 09:59 | Emergency (ER) | payer MEDICARE, MEDICAID ==
[2018-09-26] MEDS ORDERED: NORMAL SALINE 1000 ML 1,000 ML IV ONE ×3 (10:31→17:55)
[2018-09-26 10:44] LABS: HEMATOCRIT 31.6 % (37.9-51.0); MEAN CORPUSCULAR HEMOGLOBIN 35.4 pg (27.0-33.4); MEAN CORPUSCULAR HGB CONC 34.9 g/dL (32.0-36.0); MEAN CORPUSCULAR VOLUME 101 fl (80-97); RED BLOOD COUNT 3.12 10^6/uL (4.35-5.55)
[2018-09-26 10:48] LABS: INTERNATIONAL RATION (INR) 1.94; PROTHROMBIN TIME 23.1 SEC (11.4-15.4)
[2018-09-26 10:49] LABS: PARTIAL THROMBOPLASTIN TIME 38.1 SEC (23.5-35.8)
[2018-09-26 10:56] LABS: ALANINE AMINOTRANSFERASE 103 U/L (21-72); ALBUMIN 2.9 g/dL (3.5-5.0); ALKALINE PHOSPHATASE 144 U/L (38-126); ASPARTATE AMINO TRANSFERASE 166 U/L (17-59); BILIRUBIN,TOTAL 2.5 mg/dL (0.2-1.3); BLOOD UREA NITROGEN 65 mg/dL (7-20); CALCIUM 7.9 mg/dL (8.4-10.2); CREATINE KINASE 85 U/L (55-170); LIPASE 116.7 U/L (23-300); TOTAL PROTEIN 7.8 g/dL (6.3-8.2)
[2018-09-26 11:01] LABS: CARBON DIOXIDE 21 mmol/L (22-30); CHLORIDE 90 mmol/L (98-107); SODIUM 130.6 mmol/L (137-145)
[2018-09-26 11:02] LABS: ALCOHOL < 10 mg/dL (NONE DETECTED)
[2018-09-26 11:03] LABS: ANION GAP 20 (5-19); PLATELET COUNT 39 10^3/uL (150-450)
[2018-09-26 11:04] LABS: GLUCOSE 402 mg/dL (75-110)
[2018-09-26 11:06] LABS: ABSOLUTE LYMPHOCYTES# (MANUAL) 2.3 10^3/uL (0.5-4.7); ABSOLUTE MONOCYTES # (MANUAL) 0.9 10^3/uL (0.1-1.4); ABSOLUTE NEUTROPHILS# (MANUAL) 11.9 10^3/uL (1.7-8.2); BASOPHILS % (MANUAL) 0 % (0-2); EOSINOPHILS % (MANUAL) 0 % (0-6); LYMPHOCYTES % (MANUAL) 15 % (13-45); MONOCYTES % (MANUAL) 6 % (3-13); SEGMENTED NEUTROPHILS % (MAN) 79 % (42-78); TOTAL CELLS COUNTED 100
[2018-09-26 11:07] LABS: CREATINE KINASE MB 1.72 ng/mL (<4.55); TROPONIN I 0.014 ng/mL
[2018-09-26 11:10] LABS: TOXIC GRANULATION SLIGHT; TOXIC VACUOLATION PRESENT
[2018-09-26 11:11] LABS: ANISOCYTOSIS 2+; PLATELET COMMENT DECREASED; POLYCHROMASIA SLIGHT
[2018-09-26] MEDS: NORMAL SALINE 1000 ML 1,000 ML IV PRN ×2 (11:52→13:02)
--- NOTE | 2018-09-26 11:57 | RADIOLOGY REPORT (SQ) ---
EXAM DESCRIPTION: CHEST SINGLE VIEW COMPLETED DATE/TIME: 09/26/2018 11:40 am REASON FOR STUDY: chest pain, weakness COMPARISON: 02/13/2018 EXAM PARAMETERS: NUMBER OF VIEWS: One view. TECHNIQUE: Single frontal radiographic view of the chest acquired. RADIATION DOSE: NA LIMITATIONS: None. FINDINGS: LUNGS AND PLEURA: No opacities, masses or pneumothorax. No pleural effusion. MEDIASTINUM AND HILAR STRUCTURES: No masses. Contour normal. HEART AND VASCULAR STRUCTURES: Cardiomegaly. BONES: No acute findings. HARDWARE: None in the chest. OTHER: No other significant finding. IMPRESSION: Cardiomegaly without acute abnormality of the lungs in AP projection. TECHNICAL DOCUMENTATION: JOB ID: [id number] [employer]- All Rights Reserved Reading location - IP/workstation name: [email or web address]
[2018-09-26] MEDS ORDERED: LIDOCAINE 2% URO-JET 5 ML KIT MM ONE (12:08)
[2018-09-26] MEDS: MAGNESIUM SULFATE/D5W 1 GM/100 ML RTUPB IV SCH ×2 (12:59→14:38)
[2018-09-26] MEDS ORDERED: INSULIN REG, HUMAN 100 UNIT/ML 3 ML VIAL (PYX) IV ONE (13:00)
[2018-09-26 15:29] LABS: APPEARANCE,URINE CLOUDY; BILIRUBIN,URINE SMALL (NEGATIVE); COLOR,URINE AMBER; GLUCOSE, URINE 50 mg/dL (NEGATIVE); KETONES,URINE TRACE mg/dL (NEGATIVE); LEUKOCYTE ESTERASE,URINE TRACE (NEGATIVE); NITRITE,URINE NEGATIVE (NEGATIVE); PROTEIN,URINE >=500 mg/dL (NEGATIVE); URINE SPECIFIC GRAVITY 1.018
[2018-09-26 15:33] LABS: URINE AMPHETAMINES SCREEN NEGATIVE; URINE BARBITURATES SCREEN NEGATIVE; URINE BENZODIAZEPINES SCREEN NEGATIVE; URINE COCAINE SCREEN NEGATIVE; URINE MARIJUANA (THC) SCREEN NEGATIVE; URINE METHADONE SCREEN NEGATIVE; URINE PHENCYCLIDINE SCREEN NEGATIVE
[2018-09-26] MEDS ORDERED: CEFEPIME 2 GM/D5W RTU 2 GM/50 ML RTUPB IV ONE (15:43)
[2018-09-26] MEDS ORDERED: VANCOMYCIN HCL INJ 1000 MG VIAL IV ONE (15:44)
--- NOTE | 2018-09-26 16:07 | RADIOLOGY REPORT (SQ) ---
EXAM DESCRIPTION: CT ABD/PELVIS NO ORAL OR IV COMPLETED DATE/TIME: 09/26/2018 3:54 pm REASON FOR STUDY: acute renal failure COMPARISON: CT 01/18/2018 and earlier TECHNIQUE: CT scan of the abdomen and pelvis performed without intravenous or oral contrast. Images reviewed with lung, soft tissue, and bone windows. Reconstructed coronal and sagittal MPR images revi ewed. All images stored on PACS. All CT scanners at this facility use dose modulation, iterative reconstruction, and/or weight based d osing when appropriate to reduce radiation dose to as low as reasonably achievable (ALARA). [facility]: Dose Right [facility]: CareDose [facility]: Dose Right [facility]: Teradose 4D [facility]: Smart [employer] RADIATION DOSE: CT Rad equipment meets quality standard of care and radiation dose reduction techniq ues were employed. CTDIvol: 15.2 mGy. DLP: 752 mGy-cm.mGy. LIMITATIONS: None. FINDINGS: LOWER CHEST: No significant findings. No nodules or infiltrates. NON-CONTRASTED LIVER, SPLEEN, ADRENALS: Evaluation limited by lack of IV contrast. No identified sign ificant masses. PANCREAS: No masses. No peripancreatic inflammatory changes. GALLBLADDER: Gallbladder is generously distended. RIGHT KIDNEY AND URETER: No suspicious masses. Assessment limited by lack of IV contrast. No signif icant calcifications. No hydronephrosis or hydroureter. LEFT KIDNEY AND URETER: No suspicious masses. Assessment limited by lack of IV contrast. No signifi cant calcifications. No hydronephrosis or hydroureter. AORTA AND RETROPERITONEUM: No aneurysm. Mild calcified plaque. No retroperitoneal masses or adenopa thy. BOWEL AND PERITONEAL CAVITY: No dilated loops of bowel. No obvious masses or inflammatory changes. N o free fluid. No free air. APPENDIX: Normal. PELVIS, BLADDER, AND ABDOMINAL WALL:No abnormal masses. No free fluid. Mild circumferential thickeni ng of the massey of the urinary bladder. A left-sided inguinal hernia containing a short segment of n ondilated sigmoid colon and fat. BONES: Ankylosis of L4 and L5. No sinister bone lesion. OTHER: No other significant finding. IMPRESSION: 1. No hydronephrosis or nephrolithiasis. 2. Mild circumferential thickening of the massey of the urinary bladder which may represent cystitis. Correlate with urinalysis. 3. Left inguinal hernia contain a short segment of sigmoid colon. 4. Generously distended gallbladder. No intra or extrahepatic biliary dilatation. COMMENT: Quality ID # 436: Final reports with documentation of one or more dose reduction techniques (e.g., Automated exposure control, adjustment of the mA and/or kV according to patient size, use of iterative reconstruction technique) TECHNICAL DOCUMENTATION: JOB ID: [id number] [employer]- All Rights Reserved Reading location - IP/workstation name: [email or web address]
--- NOTE | 2018-09-26 16:20 | RADIOLOGY REPORT (SQ) ---
EXAM DESCRIPTION: CHEST SINGLE VIEW COMPLETED DATE/TIME: 09/26/2018 4:08 pm REASON FOR STUDY: hypotension, sepsis COMPARISON: None. EXAM PARAMETERS: NUMBER OF VIEWS: One view. TECHNIQUE: Single frontal radiographic view of the chest acquired. RADIATION DOSE: NA LIMITATIONS: None. FINDINGS: LUNGS AND PLEURA: No opacities, masses or pneumothorax. No pleural effusion. MEDIASTINUM AND HILAR STRUCTURES: No masses. Contour appears similar to prior. HEART AND VASCULAR STRUCTURES: Mild cardiomegaly, similar to prior. Central pulmonary vasculature is accentuated due to low lung volumes. BONES: No acute findings. HARDWARE: None in the chest. OTHER: No other significant finding. IMPRESSION: NO ACUTE RADIOGRAPHIC FINDING IN THE CHEST. TECHNICAL DOCUMENTATION: JOB ID: [id number] [employer]- All Rights Reserved Reading location - IP/workstation name: [email or web address]
[2018-09-26] MEDS ORDERED: DEXTROSE 5%-WATER 250 ML with NOREPINEPHRINE BITARTRATE 4 MG IV PRN ×2 (16:28)
--- NOTE | 2018-09-26 16:35 | EKG REPORT ---
SEVERITY:- BORDERLINE ECG - SINUS RHYTHM LEFT AXIS DEVIATION BORDERLINE PROLONGED QT INTERVAL : Confirmed by: Cory Garrett MD 26-Sep-2018 16:34:46
--- NOTE | 2018-09-26 16:35 | EKG REPORT ---
SEVERITY:- BORDERLINE ECG - SINUS RHYTHM LEFT AXIS DEVIATION BORDERLINE T WAVE ABNORMALITIES BORDERLINE PROLONGED QT INTERVAL : Confirmed by: Cory Garrett MD 26-Sep-2018 16:34:32
[2018-09-26] MEDS ORDERED: NOREPINEPHRINE BITARTRATE INJ/PF 4 MG/4 ML SDV IV ONE (16:44)
--- NOTE | 2018-09-26 16:53 | ER Document Report ---
ED General - General Chief Complaint: Leg Pain Stated Complaint: BODYACHE Time Seen by Provider: 09/26/18 10:11 Primary Care Provider: YASSINE JOSEPH MD [Primary Care Provider] - Follow up as needed TRAVEL OUTSIDE OF THE [place] IN LAST 30 DAYS: No - HPI Notes: Patient presents emergency department for evaluation. He states he feels extremely weak and his legs were giving out on him. He states that this is been going on for the last several days. He really cannot give me much more in the way of reliable history. He denies any pain at this time. He states he has had some intermittent chest pain that only lasts a few seconds. He is unsure what medications he takes. He states he had them with him at home and thought a family member was going to bring them. He states he had nausea with one episode of emesis last week. Otherwise he notes that he has decreased urination. He states has been going on over the last several days as well. He denies dysuria. No known fevers. He just feels weak. - Related Data Allergies/Adverse Reactions: minerals [From Enviro Stress] Allergy (Verified 02/18/18 19:34) vitamin B complex and C [From [employer]] Allergy (Verified 02/18/18 19:34) vitamin E (d-alpha tocopherol) [From [employer]] Allergy (Verified 02/18/18 19:34) Past Medical History - General Information source: Patient, [facility] Records - Social History Smoking Status: Never Smoker Frequency of alcohol use: Occasional Family History: Reviewed & Not Pertinent Patient has suicidal ideation: No Patient has homicidal ideation: No - Past Medical History Cardiac Medical History: Reports: Hx Hypertension Neurological Medical History: Denies: Hx Seizures Endocrine Medical History: Reports: Hx Diabetes Mellitus Type 2 Renal/ Medical History: Denies: Hx Peritoneal Dialysis Psychiatric Medical History: Denies: Hx Depression - Immunizations Immunizations up to date: Yes Hx Diphtheria, Pertussis, Tetanus Vaccination: No Review of Systems - Review of Systems Constitutional: Weakness EENT: No symptoms reported Cardiovascular: No symptoms reported Respiratory: No symptoms reported Gastrointestinal: See HPI Genitourinary: See HPI Musculoskeletal: See HPI Skin: No symptoms reported Hematologic/Lymphatic: See HPI Neurological/Psychological: No symptoms reported Physical Exam - Vital signs Vitals: Resp Pulse Ox 19 98 09/26/18 10:18 03/17/19 10:18 - Notes Notes: Vital signs reviewed, please refer to chart. Patient is normocephalic, atraumatic. Pupils equal round, reactive to light. Neck is supple without meningismus. Heart is regular rate and rhythm. Lungs are clear to auscultation bilaterally. Abdomen is soft, nontender, normoactive bowel sounds throughout. Extremities without cyanosis, clubbing. Peripheral pulses are equal. Skin is warm and dry. Patient is awake, alert. He is oriented x3. He does repeat himself frequently and seems intermittently confused, some difficulty answering simple questions. Cranial nerves II through XII are grossly intact without focal neurological deficits. Strength is 4 out of 5 bilateral upper and lower extremities. Sensation is intact. Reflexes are mildly diminished but symmetrical. Intact finger nose sugar, rapid eye movements, [id number]. Course - Re-evaluation Re-evalutation: 09/26/18 16:47 Patient presents emergency department for evaluation. Unfortunately have very little in the way of history in this gentleman. I do note that he has had some problems with chronic alcoholism. The majority of his laboratory investigations are consistent with that. He does have an elevated white count, but also an anemia and a thrombocytopenia. This is the worst thrombocytopenia that he has had. His INR is elevated as well. Liver enzymes are elevated moderately. Most concerning is his new onset renal failure with a creatinine over 7. Last creatinine was close to 1 towards the end of last year. He was given IV fluids. Attempt was made to place a Woodard catheter, this was unsuccessful. Urinalysis was obtained and sent for culture. Blood cultures are pending. Chest x-rays unremarkable for any clear signs of infection. We will treat the patient for multisystem organ failure from sepsis and septic shock. He is given IV fluids. IV antibiotics ordered. After 2 L he was normotensive for some time. He then became hypotensive again. Third liter was ordered and patient remained hypotensive after about 500 cc bolus. Levophed was ordered. At this point patient's blood pressure is 87/62. Throughout all of these hypertensive episodes he has remained completely asymptomatic. Large-bore peripheral IV lines have been established. Patient is stable. I spoke to Dr. Cunningham regarding this patient. He does not feel comfortable with him staying here. I then spoke to [facility]. I was able to speak to a Dr. Schmitt to there. 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 Have been unable to obtain medications. Patient is remained stable. He was accepted Via [facility]skar [facility] at [facility], but they do not have any beds. They expect over 24-hour wait. Phone call pending at [facility]. Will continue to call tertiary center for further care. 09/26/18 17:12 Despite continued fluids, patient remains hypotensive. This patient is altered with an elevated INR. Given this information I did contact surgery for central line placement. Dr. Jacobsen is in route to the ED. 09/26/18 17:48 Dr. Jacobsen evaluated the patient. He was able to successfully place a right femoral CVC. This seemed prudent given his elevated INR, low platelets. Levophed is infusing. I did speak with [facility]. Dr. Alba, MICU attending at [facility], who accepted the patient. They will trans-port the patient via their ALS crew. Awaiting phone call back from charge nurse at [facility]. 09/29/18 13:52 - Vital Signs Vital signs: Temp Pulse Resp BP Pulse Ox 97.9 F 92 19 116/59 L 97 09/26/18 19:40 09/26/18 10:19 09/26/18 19:40 09/26/18 19:40 09/26/18 19:40 - Laboratory Result Diagrams: 09/26/18 10:19 09/26/18 10:19 Laboratory results interpreted by me: 09/26/18 09/26/18 09/26/18 10:19 10:19 10:19 WBC 15.0 H RBC 3.12 L Hgb 11.0 L Hct 31.6 L MCV 101 H MCH 35.4 H RDW 19.0 H Plt Count 39 L Seg Neuts % (Manual) 79 H Abs Neuts (Manual) 11.9 H PT 23.1 H APTT 38.1 H Sodium 130.6 L Chloride 90 L Carbon Dioxide 21 L Anion Gap 20 H BUN 65 H Creatinine 7.51 H Est GFR ( Amer) 9 L Est GFR (Non-Af Amer) 7 L Glucose 402 H* POC Glucose Calcium 7.9 L Magnesium 1.1 L* Total Bilirubin 2.5 H Direct Bilirubin 2.0 H AST 166 H ALT 103 H Alkaline Phosphatase 144 H Albumin 2.9 L Urine Protein Urine Glucose (UA) Urine Ketones Urine Blood Urine Bilirubin Urine Urobilinogen Ur Leukocyte Esterase 09/26/18 09/26/18 09/26/18 13:24 13:55 14:24 WBC RBC Hgb Hct MCV MCH RDW Plt Count Seg Neuts % (Manual) Abs Neuts (Manual) PT APTT Sodium Chloride Carbon Dioxide Anion Gap BUN Creatinine Est GFR ( Amer) Est GFR (Non-Af Amer) Glucose POC Glucose 307 H 221 H Calcium Magnesium Total Bilirubin Direct Bilirubin AST ALT Alkaline Phosphatase Albumin Urine Protein >=500 H Urine Glucose (UA) 50 H Urine Ketones TRACE H Urine Blood LARGE H Urine Bilirubin SMALL H Urine Urobilinogen 2.0 H Ur Leukocyte Esterase TRACE H - Diagnostic Test Radiology reviewed: Reports reviewed - Possible cystitis, distended gallbladder. Chest x-ray unremarkable. Critical Care Note - Critical Care Note Total time excluding time spent on procedures (mins): 45 Discharge - Discharge Clinical Impression: Septic shock, Sepsis with multi-organ dysfunction, Acute renal failure (ARF) Disposition: [facility] Referrals: YASSINE JOSEPH MD [Primary Care Provider] - Follow up as needed
--- NOTE | 2018-09-26 18:11 | Operative Report ---
Operative Report DATE OF SURGERY: 09/26/18 PREOPERATIVE DIAGNOSIS: Shock; acute renal failure; coagulopathy POSTOPERATIVE DIAGNOSIS: Shock OPERATION: Focused ultrasound of the right groin with ultrasound directed insertion of a triple-lumen right common femoral vein SURGEON: NIKHIL OKEEFE ANESTHESIA: Local TISSUE REMOVED OR ALTERED: None COMPLICATIONS: None ESTIMATED BLOOD LOSS: Minimal INTRAOPERATIVE FINDINGS: See below PROCEDURE: The patient was moved from the emergency department room 19 to the trauma bay where he was placed supine position head down, right groin exposed, prepped and draped in sterile fashion. Surgical plan surgical timeout were conducted. Using ultrasound, variable frequency linear transducer, as a real-time guide, the skin was anesthetized with 1% plain lidocaine. Using the Seldinger technique, a triple-lumen central venous access catheter was threaded into the right femoral vein without difficulty on the first stick after dilating up the tract. The catheter was secured to the skin with 2-0 silk suture x2, and a patch and sterile dressing applied. Patient tolerated procedure well.
[2018-09-26 19:53] VITALS: BP 116/59
--- NOTE | 2018-09-26 20:10 | ER Document Report ---
Doctor's Note Notes: 09/26/18 20:10 Patient evaluated. He is mentating appropriately. He is protecting his airway. He is stable for transfer
== END 2018-09-26 20:10 | disposition short-term general hospital (02) ==
LOC: ER 09:59
PROC: 06HM33Z Insertion of Infusion Device into Right Femoral Vein, Percutaneous Approach (ICD-10-PCS; principal; 2018-09-26)
PROC: B54BZZA Ultrasonography of Right Lower Extremity Veins, Guidance (ICD-10-PCS; 2018-09-26)
DX: R65.21 Severe sepsis with septic shock (principal); N17.9 Acute kidney failure, unspecified; M62.81 Muscle weakness (generalized); R07.9 Chest pain, unspecified; R11.2 Nausea with vomiting, unspecified; R33.9 Retention of urine, unspecified; Z79.899 Other long term (current) drug therapy; I10 Essential (primary) hypertension; E11.9 Type 2 diabetes mellitus without complications
CPT/HCPCS: 93005; 99285; 96361; 51702; 96365; 96366; 96367; 96368; 36415; 87040; 87086; 82553; 82962; 80307 ×2; 82550; 83690; 83735; 85025; 85610; 85730; 87077; 80053; 81001; 84484; 71045; 74176; 93010; 36556; C1751; C1758 ×2; J3490; J3475; A9270 ×2; J7060; J7030; J3370; J0692; J1815

== ENCOUNTER 2018-11-24 13:13 | Emergency (ER) | payer MEDICARE, MEDICAID ==
[2018-11-24 13:25] VITALS: BP 108/88
[2018-11-24] MEDS ORDERED: KETOROLAC TROMETHAMINE 60 MG/2 ML SDV IM ONE (14:05)
--- NOTE | 2018-11-24 14:11 | ER Document Report ---
ED Extremity Problem, Lower - General Chief Complaint: Knee Pain Stated Complaint: KNEE PAIN Time Seen by Provider: 11/24/18 13:43 Primary Care Provider: YASSINE JOSEPH MD [Primary Care Provider] - Follow up tomorrow Mode of Arrival: Wheelchair Information source: Patient Notes: 62-year-old male presented to ED for complaint of right knee pain. He states he has chronic knee pain and missed his appointment with his orthopedic due to his pain there was scheduled on Thursday. He is alert oriented walks with a walker. He rambles speech but he is alert and oriented. He states he has had several shots today because of his pain. He states he is calling for a ride home. TRAVEL OUTSIDE OF THE [place] IN LAST 30 DAYS: No - HPI Patient complains to provider of: Pain, Swelling Location: Knee Occurred: Other - Chronic states he has been seen multiple times for this pain and was supposed to go to the orthopedic on Thursday Where: Home Onset/Duration: Persistent - Chronic Quality of pain: Sharp, Throbbing Severity: Moderate Pain Level: 4 Context: Other - Chronic Recent injury: No Associated symptoms: Painful ambulation Exacerbated by: Movement, Walking Relieved by: Nothing - Related Data Allergies/Adverse Reactions: minerals [From Enviro Stress] Allergy (Verified 02/18/18 19:34) vitamin B complex and C [From [employer]vi[employer] Stress] Allergy (Verified 02/18/18 19:34) vitamin E (d-alpha tocopherol) [From Enviro Stress] Allergy (Verified 02/18/18 19:34) Past Medical History - General Information source: Patient - Social History Smoking Status: Never Smoker Frequency of alcohol use: Heavy Drug Abuse: None Family History: Reviewed & Not Pertinent Patient has suicidal ideation: No Patient has homicidal ideation: No - Past Medical History Cardiac Medical History: Reports: Hx Hypertension Pulmonary Medical History: Reports: None EENT Medical History: Reports: None Neurological Medical History: Reports: None Endocrine Medical History: Reports: Hx Diabetes Mellitus Type 2 Renal/ Medical History: Reports: None Malignancy Medical History: Reports None GI Medical History: Reports: None Musculoskeletal Medical History: Reports Hx Arthritis, Reports Hx Musculoskeletal Deformity, Reports Hx Musculoskeletal Trauma Skin Medical History: Reports None Psychiatric Medical History: Reports: None Traumatic Medical History: Reports: None Surgical Hx: Negative Past Surgical History: Reports: None - Immunizations Immunizations up to date: Yes Hx Diphtheria, Pertussis, Tetanus Vaccination: No Review of Systems - Review of Systems Constitutional: No symptoms reported EENT: No symptoms reported Cardiovascular: No symptoms reported Respiratory: No symptoms reported Gastrointestinal: No symptoms reported Genitourinary: No symptoms reported Male Genitourinary: No symptoms reported Musculoskeletal: Joint pain, Joint swelling Skin: No symptoms reported Hematologic/Lymphatic: No symptoms reported Neurological/Psychological: No symptoms reported -: Yes All other systems reviewed and negative Physical Exam - Vital signs Vitals: Temp Pulse Resp BP Pulse Ox 98.3 F 80 18 108/88 H 99 11/24/18 13:23 11/24/18 13:23 11/24/18 13:23 11/24/18 13:23 11/24/18 13:23 Interpretation: Normal - General General appearance: Appears well, Alert - HEENT Head: Normocephalic, Atraumatic Eyes: Normal Pupils: PERRL - Respiratory Respiratory status: No respiratory distress Chest status: Nontender Breath sounds: Normal Chest palpation: Normal - Cardiovascular Rhythm: Regular Heart sounds: Normal auscultation Murmur: No - Abdominal Inspection: Normal Distension: No distension Bowel sounds: Normal Tenderness: Nontender Organomegaly: No organomegaly - Back Back: Normal, Nontender - Extremities General upper extremity: Normal inspection, Nontender, Normal color, Normal ROM, Normal temperature General lower extremity: Normal color, Normal ROM, Normal temperature. No: Normal weight bearing - Patient's normal weightbearing, Jesica's sign Knee: Tender, Pain with ROM, Patellar tendon intact, Tender joint line. No: Abrasion, Deformity, Dislocation, Drawer's test instability, Ecchymosis, Instability, Laceration, Laxity with valgus stress, Laxity with varus stress, Popliteal fossa tender - Neurological Neuro grossly intact: Yes Cognition: Normal Orientation: AAOx4 Ethan Coma Scale Eye Opening: Spontaneous Mustang Coma Scale Verbal: Oriented Ethan Coma Scale Motor: Obeys Commands Ethan Coma Scale Total: 15 Speech: Normal Motor strength normal: LUE, RUE, LLE, RLE Sensory: Normal - Psychological Associated symptoms: Normal affect, Normal mood - Skin Skin Temperature: Warm Skin Moisture: Dry Skin Color: Normal Course - Re-evaluation Re-evalutation: 11/24/18 21:59 Patient was treated with Toradol in the emergency room and instructed to follow- up with orthopedics as he has been instructed by multiple providers. Stated he did not go to the orthopedics instead came to the emergency room get injections in the knee. His pain to him we do not inject knees in the emergency room Tate barfield give him Toradol while he was here but is still needed to go to orthopedics to get the injections in his knees. Son verbalized understanding and called for a ride to go home. - Vital Signs Vital signs: Temp Pulse Resp BP Pulse Ox 98.3 F 80 18 108/88 H 99 11/24/18 13:23 11/24/18 13:23 11/24/18 13:23 11/24/18 13:23 11/24/18 13:23 Discharge - Discharge Clinical Impression: Chronic pain of right knee Condition: Stable Disposition: HOME, SELF-CARE Additional Instructions: Chronic Pain Control Stress, inactivity, and depression make pain more severe regardless of the cause of the pain. Stress and poor physical condition can cause pain such as headaches and backache. Relaxation: Rest in a quiet place with your eyes closed for 20 minutes twice daily. Concentrate on a pleasant image, or simply "feel" your breathing. Clear your mind. Stress management: Deal with your "stressors." Either take action, or eliminate the stressor from your life. Don't let things hang over you. Accept those things you can't change. Nutrition: Eat small, balanced meals -- don't skip, don't overeat. Meals should be high-carbohydrate, low-sugar, low-fat. Exercise: Exercise helps painful conditions and eases stress. Get 30 minutes of moderate exercise, five days a week. Do an activity that does not flare your pain. Precautions: Pain which continues to disrupt daily activities, or which changes in nature, requires a medical evaluation. Pain Clinic referral is available. We do not manage chronic pain in the Emergency Department. We will try to appropriately help you through an acute flare of your chronic painful condition, but for on-going chronic pain that does not improve, you will need to see your private doctor or paint roller assembler. We do not provide repeated medication management of chronic painful conditions. If you wish, we can provide the name of local pain management physicians. You came to the emergency room today for knee pain that is chronic. You states she knew you were supposed to get a shot in your knee from the orthopedic but did not go to the orthopedic office but came to the emergency room for your pain. The emergency room does not give shots in your knee. This is a chronic pain problem and you need to go to the orthopedics as you have been instructed. Toradol Injection You have been given an injection of ketorolac tromethamine (Toradol). This is an excellent, safe drug for pain control. It also has potent antiinflammatory action. You should have significant pain relief within about one hour. Toradol is not addicting and is non-sedating. It does not interfere with driving or work. Call or return if you develop itching, hives, shortness of breath, or rash. Knee Exercise Program It's important to strengthen the muscles around the knee. This protects the injured area and stabilizes a knee that's been loosened by ligament injury. EARLY - Even when motion of the knee is painful (even when wearing a splint), you can begin isometric "quads" exercises. While sitting, hold the knee out, and contract the muscles to stiffen it. It shouldn't be straightened all the way -- stiffen it in a slightly-bent position. Lift the leg and draw a "T" with your foot, up to 100 times. When it becomes easy, add a weight on your foot. LATE - When the doctor advises you, you can begin moving the knee against resistance. The front muscles (quadriceps) are most important. While sitting at a [employer], straighten the knee forcefully while pushing a weight up with your ankle. Start with five to 10 pounds. Do 10 to 20 repetitions, increasing the weight as tolerated. Don't use more weight than is comfortable! Over a few weeks, work up to 35 to 50 pounds. Athletes should try to reach 70 to 90 pounds. Hernando Wrap A compression dressing (hernando wrap) has been placed. This helps hold the area still. It limits swelling and internal bleeding. The wrap should be comfortably snug -- not tight. You should feel a sense of pressure, but not severe pain under the wrap. Unless the physician tells you otherwise, you can adjust the wrap for comfort. If the wrap causes symptoms suggesting it's too tight -- uncomfortable pressure, swelling or discoloration beyond the wrap, numbness, or severe pain -- you must loosen the wrap. If these symptoms don't resolve promptly, return for re-evaluation. FOLLOW-UP CARE: Please call the orthopedics nurse listed on your paper from [facility] and reschedule your appointment with the orthopedic and follow-up as instructed. If you have been referred to a physician for follow-up care, call the physicians office for an appointment as you were instructed or within the next two days. If you experience worsening or a significant change in your symptoms, notify the physician immediately or return to the Emergency Department at any time for re-evaluation. Forms: Elevated Blood Pressure, Smoking Cessation Education Referrals: YASSINE JOSEPH MD [Primary Care Provider] - Follow up tomorrow
== END 2018-11-24 14:29 | disposition home or self-care (01) ==
LOC: ER 13:13
DX: M25.561 Pain in right knee (principal); G89.29 Other chronic pain; I10 Essential (primary) hypertension; E11.9 Type 2 diabetes mellitus without complications
CPT/HCPCS: 99283; 96372; J1885

== ENCOUNTER 2018-11-28 12:18 | Emergency (ER) | payer MEDICARE, MEDICAID ==
[2018-11-28 12:51] VITALS: BP 117/74
--- NOTE | 2018-11-28 13:36 | ER Document Report ---
ED Extremity Problem, Lower - General Chief Complaint: Knee Pain Stated Complaint: KNEE PAIN Time Seen by Provider: 11/28/18 12:57 Primary Care Provider: YASSINE JOSEPH MD [Primary Care Provider] - 11/29/18 1:00 pm Notes: Patient is complaining of pain in his right knee and is best I can tell, he is had this for a long time. He was just here 4 days ago with exactly the same complaint. He was seen in no significant pathology was found and he was given a shot of Toradol and discharged to follow-up with his primary care and with orthopedics. He is done either of these follow-ups but returns complaining of pain. Unable to relate if he has had an injury. Says he is been seen at [facility] for the same problem 3 or 4 months ago. Has not had any fevers. TRAVEL OUTSIDE OF THE [place] IN LAST 30 DAYS: No - Related Data Allergies/Adverse Reactions: minerals [From Enviro Stress] Allergy (Verified 02/18/18 19:34) vitamin B complex and C [From [employer]vi[employer] Stress] Allergy (Verified 02/18/18 19:34) vitamin E (d-alpha tocopherol) [From [employer]vi[employer] Stress] Allergy (Verified 02/18/18 19:34) Past Medical History - Social History Smoking Status: Never Smoker Frequency of alcohol use: Heavy Drug Abuse: None Family History: Reviewed & Not Pertinent Patient has suicidal ideation: No Patient has homicidal ideation: No - Past Medical History Cardiac Medical History: Reports: Hx Hypertension Neurological Medical History: Denies: Hx Seizures Endocrine Medical History: Reports: Hx Diabetes Mellitus Type 2 Musculoskeletal Medical History: Reports Hx Arthritis, Reports Hx Musculoskeletal Deformity, Reports Hx Musculoskeletal Trauma - Immunizations Immunizations up to date: Yes Hx Diphtheria, Pertussis, Tetanus Vaccination: No Review of Systems - Review of Systems Notes: CONSTITUTIONAL : Denies fever. CARDIOVASCULAR: Denies chest pain. RESPIRATORY: Denies cough, chest congestion, or shortness of breath. GASTROINTESTINAL: Denies abdominal pain or nausea, vomiting, or diarrhea. GENITOURINARY: Denies difficulty or painful urinating, urinary frequency, blood in urine. Physical Exam - Vital signs Vitals: Temp Pulse Resp BP Pulse Ox 97.8 F 75 16 117/74 99 11/28/18 12:29 11/28/18 12:29 11/28/18 12:29 11/28/18 12:29 11/28/18 12:29 Interpretation: Normal. No: Febrile Notes: PHYSICAL EXAMINATION: GENERAL: Well-appearing, no acute distress. Patient's difficult to understand in a terrible historian. He almost sounds like he is under the influence of something such as alcohol. HEAD: Atraumatic, normocephalic. NECK: Normal range of motion, supple. LUNGS: Breath sounds clear and equal bilaterally. HEART: Regular rate and rhythm without murmurs heard. ABDOMEN: Soft, nontender. No guarding or rebound or masses felt. Extremities: Right knee does not appear to be swollen or any difference in size from the left knee. I can move it around throughout almost a full range of motion. Patient says it hurts but he does not prevent me from doing so. No increased heat in the right knee. No effusion noted. There is some scarring of the tissue just proximal to the knee and 1 bit of it is straight like a margin of the skin graft. Course - Re-evaluation Re-evalutation: 11/28/18 13:[address] Cast Who said to have the patient come to his office tomorrow, Thursday, at 1 PM. 11/28/18 17:57 - Vital Signs Vital signs: Temp Pulse Resp BP Pulse Ox 97.8 F 75 16 117/74 99 11/28/18 12:29 11/28/18 12:29 11/28/18 12:29 11/28/18 12:29 11/28/18 12:29 Discharge - Discharge Clinical Impression: Chronic pain of right knee Condition: Stable Disposition: HOME, SELF-CARE Additional Instructions: Chronic right knee pain: Arthritis Your symptoms are due to arthritis. Arthritis is an inflammation of the joints. There are many types -- osteoarthritis (due to "wear and tear"), auto- immmune arthritis (such as rheumatoid, lupus, Ranjana's, and others), and c rystal-induced arthritis (such as gout and pseudogout). The physician's examination, combined with laboratory tests, will determine the cause of your arthritis. All types of arthritis are treated with antiinflammatory medications. Other medication may be required for special types of arthritis, or if your problem does not respond to the antiinflammatory medicine. Local warmth may be helpful. Move the involved joints through the full range of motion daily. Mild exercise is usually still possible for most persons with arthritis (ask your physician). Swimming provides good exercise without damaging the joints. Contact the physician if you are worsening in any way. FOLLOW-UP CARE: If you have been referred to a physician for follow-up care, call the physicians office for an appointment as you were instructed or within the next two days. If you experience worsening or a significant change in your symptoms, notify the physician immediately or return to the Emergency Department at any time for re-evaluation. Dr. Joseph can see you in his office at 1:00 tomorrow afternoon, Thursday, November 29. Referrals: YASSINE JOSEPH MD [Primary Care Provider] - 11/29/18 1:00 pm
== END 2018-11-28 13:26 | disposition home or self-care (01) ==
LOC: ER 12:18
DX: G89.29 Other chronic pain (principal); M25.561 Pain in right knee; I10 Essential (primary) hypertension; E11.9 Type 2 diabetes mellitus without complications; Z88.8 Allergy status to other drugs, medicaments and biological substances
CPT/HCPCS: 99283

== ENCOUNTER 2018-12-06 01:12 | Emergency (ER) | payer MEDICARE, MEDICAID ==
--- NOTE | 2018-12-06 02:39 | ER Document Report ---
HPI - HPI Time Seen by Provider: 12/06/18 02:14 Pain Level: 5 Notes: Patient is a 63-year-old male who presents to the emergency department for right knee pain. Patient states this has been ongoing for months. Patient was seen on the of this month and had a scheduled follow-up appointment last Thursday with Dr. Joseph his primary care physician. Patient states he was unable to get a ride so he did not make his appointment. Patient states tonight he was am bulating to the restroom when his right knee gave out on him. Patient states this caused him to fall on his buttocks. Patient denies buttocks pain, hip pain and states that the only place he hurts is his right knee. Patient denies swelling or bruising around the knee. Patient does admit to taking 3 shots of alcohol tonight to help with the discomfort. Patient states he has tried multiple rila-[id number]-[id number] medications such as Advil without relief. - REPRODUCTIVE Reproductive: DENIES: : Past Medical History - Social History Smoking Status: Unknown if Ever Smoked Frequency of alcohol use: Heavy Drug Abuse: None Lives with: Family Family History: Reviewed & Not Pertinent - Past Medical History Cardiac Medical History: Reports: Hx Hypertension Neurological Medical History: Denies: Hx Seizures Endocrine Medical History: Reports: Hx Diabetes Mellitus Type 2 Renal/ Medical History: Denies: Hx Peritoneal Dialysis Musculoskeletal Medical History: Reports Hx Arthritis, Reports Hx Musculoskeletal Deformity, Reports Hx Musculoskeletal Trauma Psychiatric Medical History: Denies: Hx Depression - Immunizations Immunizations up to date: Yes Hx Diphtheria, Pertussis, Tetanus Vaccination: No Vertical Provider Document - CONSTITUTIONAL Agree With Documented VS: Yes Exam Limitations: No Limitations, Clinical Condition General Appearance: Mild Distress - INFECTION CONTROL TRAVEL OUTSIDE OF THE [place] IN LAST 30 DAYS: No - HEENT HEENT: Atraumatic, Normocephalic, PERRLA - NECK Neck: Normal Inspection - RESPIRATORY Respiratory: Breath Sounds Normal, No Respiratory Distress - CARDIOVASCULAR Cardiovascular: Regular Rate, Regular Rhythm - GI/ABDOMEN Gastrointestinal: Abdomen Soft, Abdomen Non-Tender - BACK Back: Normal Inspection - MUSCULOSKELETAL/EXTREMETIES Notes: Patient has full ROM with active movement, no deformity, edema, erythema noted to right knee. Patient states he did bear weight after the fall. No abrasion, laceration or skin breakdown. - NEURO Level of Consciousness: Awake, Alert, Appropriate - DERM Integumentary: Warm, Dry, No Rash Course - Re-evaluation Re-evalutation: 12/06/18 Patient XRAY was negative. Informed patient that although it was negative he could have an injury involving the ligament or tendon that will not show up on XRAY. Patient instructed to follow up with PCP for further evaluation or Orthopedic referral. Nurse reported that patient did ambulate well and with steady gait after receiving Tylenol. - Vital Signs Vital signs: Temp Pulse Resp BP Pulse Ox 97.8 F 73 20 101/74 97 12/06/18 01:37 12/06/18 01:37 12/06/18 01:37 12/06/18 01:37 12/06/18 01:37 - Diagnostic Test Radiology reviewed: Reports reviewed Discharge - Discharge Clinical Impression: Right knee pain Qualifiers: Chronicity: chronic Qualified Code(s): M25.561 - Pain in right knee Condition: Stable Disposition: HOME, SELF-CARE Additional Instructions: Today you were seen in the emergency department for right knee pain. Your X-Ray was negative for any acute fracture. Although the X-Ray was negative you could have ligament or tendon damage that would require further imaging such as an MRI. Please follow up with your primary care physician for further testing and treatment of your discomfort. Call Dr. Joseph tomorrow for an appointment. Return to the emergency department if you have worsening of symptoms or inability to ambulate. Referrals: YASSINE JOSEPH MD [Primary Care Provider] - Follow up as needed
[2018-12-06] MEDS ORDERED: ACETAMINOPHEN 325 MG TABLET PO ONE (02:43)
--- NOTE | 2018-12-06 03:37 | RADIOLOGY REPORT (SQ) ---
CLINICAL HISTORY: right knee pain COMPARISON: None. TECHNIQUE: XR KNEE 3 VIEWS 12/06/2018 2:40 AM CDT FINDINGS: There is no fracture. Joint spaces are preserved. Soft tissues are unremarkable. IMPRESSION: No acute osseous findings.
[2018-12-06 04:05] VITALS: BP 120/83
== END 2018-12-06 04:00 | disposition home or self-care (01) ==
LOC: ER 01:12
DX: M25.561 Pain in right knee (principal); G89.29 Other chronic pain; L53.9 Erythematous condition, unspecified; E11.9 Type 2 diabetes mellitus without complications; I10 Essential (primary) hypertension
CPT/HCPCS: 99283; 73562; A9270

== ENCOUNTER 2019-03-20 22:56 | Inpatient (IN) | payer MEDICARE, MEDICAID ==
[2019-03-20] MEDS ORDERED: NORMAL SALINE 1000 ML 1,000 ML IV ONE (23:16)
[2019-03-20 23:28] LABS: HEMATOCRIT 37.2 % (37.9-51.0); HEMOGLOBIN 11.8 g/dL (13.5-17.0); MEAN CORPUSCULAR HEMOGLOBIN 35.3 pg (27.0-33.4); MEAN CORPUSCULAR HGB CONC 31.8 g/dL (32.0-36.0); PLATELET COUNT 111 10^3/uL (150-450); RED BLOOD COUNT 3.35 10^6/uL (4.35-5.55); RED CELL DISTRIBUTION WIDTH 17.3 % (11.5-14.0); WHITE BLOOD COUNT 12.9 10^3/uL (4.0-10.5)
[2019-03-20 23:43] LABS: VENOUS BLOOD BASE EXCESS -25.5 mmol/L; VENOUS BLOOD HCO3 5.5 mmol/L (20-32); VENOUS BLOOD PCO2 25.5 mmHg (35-63)
[2019-03-20 23:47] LABS: ALBUMIN 4.6 g/dL (3.5-5.0); ALKALINE PHOSPHATASE 153 U/L (38-126); ASPARTATE AMINO TRANSFERASE 329 U/L (17-59); BILIRUBIN,DIRECT 1.2 mg/dL (0.0-0.4); BILIRUBIN,TOTAL 1.9 mg/dL (0.2-1.3); BLOOD UREA NITROGEN 11 mg/dL (7-20); CALCIUM 9.3 mg/dL (8.4-10.2); CHLORIDE 101 mmol/L (98-107); GLUCOSE 103 mg/dL (75-110); POTASSIUM 5.1 mmol/L (3.6-5.0); TOTAL PROTEIN 9.8 g/dL (6.3-8.2)
[2019-03-20 23:47] LABS: VENOUS BLOOD PH 6.95 (7.30-7.42)
[2019-03-20 23:52] LABS: INTERNATIONAL RATION (INR) 1.86; PROTHROMBIN TIME 21.7 SEC (11.4-15.4)
[2019-03-20] MEDS ORDERED: ERTAPENEM SODIUM INJ 1 GM VIAL IV ONE (23:52)
--- NOTE | 2019-03-20 23:55 | ER Document Report ---
Entered by CHIQUI CORREA SCRIBE 03/20/19 [id number] Acting as scribe for:GAGE BARNHART MD ED General - General Chief Complaint: Altered Mental Status Stated Complaint: ALTERED MENTAL STATUS Time Seen by Provider: 03/20/19 23:43 Mode of Arrival: Medic Information source: Patient Notes: Patient is a 63-year-old male who presents to the emergency department today with complaints of altered mental status per EMS. Patient is a known alcoholic. Patient is altered and unable to provide any meaningful history other than complaining of nausea and vomiting. TRAVEL OUTSIDE OF THE [place] IN LAST 30 DAYS: No - Related Data Allergies/Adverse Reactions: minerals [From Enviro Stress] Allergy (Verified 02/18/18 19:34) vitamin B complex and C [From Enviro Stress] Allergy (Verified 02/18/18 19:34) vitamin E (d-alpha tocopherol) [From Enviro Stress] Allergy (Verified 02/18/18 19:34) Past Medical History - General Information source: [facility] Records Cannot obtain history due to: Altered mental status - Social History Smoking Status: Unknown if Ever Smoked Frequency of alcohol use: Heavy Family History: Reviewed & Not Pertinent Patient has suicidal ideation: No Patient has homicidal ideation: No - Past Medical History Cardiac Medical History: Reports: Hx Hypertension Endocrine Medical History: Reports: Hx Diabetes Mellitus Type 2 Musculoskeletal Medical History: Reports Hx Arthritis, Reports Hx Musculoskeletal Deformity, Reports Hx Musculoskeletal Trauma Surgical Hx: Negative - Immunizations Immunizations up to date: Yes Hx Diphtheria, Pertussis, Tetanus Vaccination: No Review of Systems - Review of Systems -: Yes ROS unobtainable due to patient's medical condition - altered mental status Physical Exam - Vital signs Vitals: Resp Pulse Ox 23 H 100 03/20/19 23:00 03/20/19 23:00 - Notes Notes: Physical Exam: General: Confused. Ketone odor on breath. HEENT: Normocephalic. Atraumatic. PERRL. Extraocular movements intact. Oropharynx clear. Dry mucous membranes. Neck: Supple. Non-tender. Respiratory: No respiratory distress. Clear and equal breath sounds bilaterally. Cardiovascular: Regular rate and rhythm, tachycardia with rate about 120. Abdominal: Normal Inspection. Non-tender. No distension. Normal Bowel Sounds. Back: No gross abnormalities. Extremities: Moves all four extremities. Upper extremities: Normal inspection. Normal ROM. Lower extremities: Normal inspection. No edema. Normal ROM. Neurological: Confused Skin: Warm. Dry. Normal color. Course - Vital Signs Vital signs: Temp Pulse Resp BP Pulse Ox 133 H 15 126/86 H 98 03/21/19 02:36 03/21/19 03:31 03/21/19 03:31 03/21/19 03:31 - Laboratory Result Diagrams: 03/20/19 23:09 03/20/19 23:09 Laboratory results interpreted by me: 03/20/19 03/20/19 03/20/19 23:09 23:09 23:20 WBC 12.9 H RBC 3.35 L Hgb 11.8 L Hct 37.2 L MCV 111 H MCH 35.3 H MCHC 31.8 L RDW 17.3 H Plt Count 111 L Band Neutrophils % 6 H Abs Neuts (Manual) 10.3 H PT 21.7 H VBG pH VBG pCO2 VBG HCO3 Potassium 5.1 H Carbon Dioxide < 5 L* Creatinine 1.44 H Est GFR (MDRD) Non-Af 49 L Lactic Acid Magnesium Total Bilirubin 1.9 H Direct Bilirubin 1.2 H AST 329 H Alkaline Phosphatase 153 H Creatine Kinase Total Protein 9.8 H Urine Protein Urine Ketones Urine Blood 03/20/19 03/20/19 03/20/19 23:20 23:20 23:20 WBC RBC Hgb Hct MCV MCH MCHC RDW Plt Count Band Neutrophils % Abs Neuts (Manual) PT VBG pH 6.95 L* VBG pCO2 25.5 L VBG HCO3 5.5 L Potassium Carbon Dioxide Creatinine Est GFR (MDRD) Non-Af Lactic Acid 23.1 H Magnesium 1.3 L Total Bilirubin Direct Bilirubin AST Alkaline Phosphatase Creatine Kinase 248 H Total Protein Urine Protein Urine Ketones Urine Blood 03/20/19 23:22 WBC RBC Hgb Hct MCV MCH MCHC RDW Plt Count Band Neutrophils % Abs Neuts (Manual) PT VBG pH VBG pCO2 VBG HCO3 Potassium Carbon Dioxide Creatinine Est GFR (MDRD) Non-Af Lactic Acid Magnesium Total Bilirubin Direct Bilirubin AST Alkaline Phosphatase Creatine Kinase Total Protein Urine Protein 100 H Urine Ketones 20 H Urine Blood MODERATE H - Diagnostic Test Radiology reviewed: Image reviewed, Reports reviewed - Chest x-ray is unrema rkable. CT scan of the head shows chronic microvascular ischemic changes and mild atrophy. Nothing acute. - EKG Interpretation by Me EKG shows normal: Sinus rhythm, [place], Intervals, QRS Complexes. abnormal: ST-T Waves - Borderline lateral T abnormalities Rate: Tachycardia - 120 [place]/QRS: LAHB/LAFB - Consults Dr. Sultana Time consulted: 01:52 Consulted provider: will come to ER - Check methanol level, admit to ICU. Critical Care Note - Critical Care Note Total time excluding time spent on procedures (mins): 55 Discharge - Discharge Clinical Impression: Metabolic acidosis, Lactic acid acidosis, DM (diabetes mellitus), secondary, Alcohol abuse, Alcoholic liver disease, Alcoholism, Thrombocytopenia Hypothermia Qualifiers: Encounter type: initial encounter Qualified Code(s): T68.XXXA - Hypothermia, initial encounter Condition: Fair Disposition: ADMITTED INPATIENT Admitting Provider: Ernesto Mendez covering Unit Admitted: ICU Scribe Attestation: 03/21/19 03:35 I personally performed the services described in the documentation, reviewed and edited the documentation which was dictated to the scribe in my presence, and it accurately records my words and actions. I personally performed the services described in the documentation, reviewed and edited the documentation which was dictated to the scribe in my presence, and it accurately records my words and actions.
[2019-03-21 00:01] LABS: CREATINE KINASE 248 U/L (55-170)
[2019-03-21 00:05] LABS: APPEARANCE,URINE SLIGHTLY-CLOUDY; BILIRUBIN,URINE NEGATIVE (NEGATIVE); COLOR,URINE YELLOW; GLUCOSE, URINE NEGATIVE (NEGATIVE); KETONES,URINE 20 mg/dL (NEGATIVE); LEUKOCYTE ESTERASE,URINE NEGATIVE (NEGATIVE); NITRITE,URINE NEGATIVE (NEGATIVE); PROTEIN,URINE 100 mg/dL (NEGATIVE); URINE SPECIFIC GRAVITY 1.011; UROBILINOGEN,URINE NEGATIVE mg/dL (<2.0)
[2019-03-21 00:05] LABS: ABSOLUTE LYMPHOCYTES# (MANUAL) 1.7 10^3/uL (0.5-4.7); ABSOLUTE MONOCYTES # (MANUAL) 0.9 10^3/uL (0.1-1.4); ANISOCYTOSIS 1+; BAND NEUTROPHILS % (MANUAL) 6 % (3-5); BASOPHILS % (MANUAL) 0 % (0-2); EOSINOPHILS % (MANUAL) 0 % (0-6); LYMPHOCYTES % (MANUAL) 13 % (13-45); MONOCYTES % (MANUAL) 7 % (3-13); SEGMENTED NEUTROPHILS % (MAN) 74 % (42-78); TOTAL CELLS COUNTED 100
[2019-03-21 00:06] LABS: MEAN CORPUSCULAR VOLUME 111 fl (80-97)
[2019-03-21 00:11] LABS: PLATELET COMMENT DECREASED
[2019-03-21 00:21] LABS: CARBON DIOXIDE < 5 mmol/L (22-30)
--- NOTE | 2019-03-21 00:31 | RADIOLOGY REPORT (SQ) ---
CLINICAL HISTORY: AMS COMPARISON: None. TECHNIQUE: XR CHEST 1 VIEW 03/20/2019 12:00 AM CDT FINDINGS: Cardiac silhouette is normal in size. Lungs are clear without consolidation, atelectasis, mass or edema. There is no pleural effusion. There is no pneumothorax. There are no acute osseous findings. IMPRESSION: Clear lungs.
[2019-03-21] MEDS ORDERED: SODIUM BICARBONATE 8.4% INJ 50 MEQ/50 ML DISP.SYRIN IV ONE ×2 (00:37→00:59)
[2019-03-21] MEDS ORDERED: METOCLOPRAMIDE HCL INJ/PF 10 MG/2 ML SDV IV ONE (00:37)
[2019-03-21] MEDS ORDERED: NORMAL SALINE 1000 ML 1,000 ML IV ONE (00:56)
[2019-03-21] MEDS ORDERED: SODIUM BICARBONATE 8.4% INJ 10 MEQ/10 ML DISP.SYRIN IV ONE (00:56)
[2019-03-21] MEDS ORDERED: DEXTROSE 5%-WATER 1000 ML 1,000 ML with SODIUM BICARBONATE 150 MEQ IV PRN ×4 (01:08→07:34)
[2019-03-21] MEDS ORDERED: MAGNESIUM SULFATE/D5W 1 GM/100 ML RTUPB IV ONE (01:10)
[2019-03-21] MEDS ORDERED: SODIUM BICARBONATE 8.4% INJ 50 MEQ/50 ML DISP.SYRIN ONE ×2 (01:27→09:54)
[2019-03-21 01:35] LABS: ALCOHOL 19 mg/dL (NONE DETECTED)
[2019-03-21 02:18] LABS: URINE AMPHETAMINES SCREEN NEGATIVE; URINE BARBITURATES SCREEN NEGATIVE; URINE BENZODIAZEPINES SCREEN NEGATIVE; URINE COCAINE SCREEN NEGATIVE; URINE MARIJUANA (THC) SCREEN NEGATIVE; URINE METHADONE SCREEN NEGATIVE; URINE PHENCYCLIDINE SCREEN NEGATIVE
--- NOTE | 2019-03-21 03:53 | RADIOLOGY REPORT (SQ) ---
CT head without contrast on 03/21/2019 at 3:23 AM CLINICAL INDICATION: Altered mental status TECHNIQUE: Multiple axial images are obtained throughout the head without the administration of contrast. This exam was performed according to our departmental dose-optimization program, which includes automated exposure control, adjustment of the mA and/or kV according to patient size and/or use of iterative reconstruction technique. Total DLP is 1028.78 mGy*cm. COMPARISON: 07/23/2017 FINDINGS: There is mild generalized cerebral atrophy. Mild ventricular prominence is not definitely out of proportion to the degree of atrophy. There is minimal low-density in the periventricular white matter consistent with minimal chronic small vessel ischemic changes. There is no CT evidence of acute infarct. There is no hemorrhage. There are no abnormal extra-axial fluid collections. There is no mass, mass effect or midline shift. No bony abnormality is noted. IMPRESSION: Mild atrophy and chronic small vessel ischemic changes with no acute intracranial abnormality.
[2019-03-21] MEDS ORDERED: THIAMINE HCL INJ 200 MG/2 ML VIAL IV ONE (04:42)
[2019-03-21] MEDS ORDERED: LORAZEPAM INJ 2 MG/1 ML VIAL IV ONE (04:42)
[2019-03-21 07:00] LABS: BLOOD UREA NITROGEN 12 mg/dL (7-20); CALCIUM 7.6 mg/dL (8.4-10.2); GLUCOSE 302 mg/dL (75-110)
[2019-03-21 07:05] LABS: CHLORIDE 100 mmol/L (98-107)
[2019-03-21 07:10] LABS: CARBON DIOXIDE 19 mmol/L (22-30)
[2019-03-21 07:14] LABS: ANION GAP 21 (5-19)
[2019-03-21] MEDS ORDERED: GLUCAGON,HUMAN RECOMB 1 MG INJ IM PRN (08:00)
[2019-03-21] MEDS ORDERED: DEXTROSE 50%-WATER SYRINGE 12.5 GM/25 ML DOSE IV PRN (08:00)
[2019-03-21] MEDS ORDERED: DEXTROSE 40% GEL 15 GM TUBE X 2 PO PRN (08:00)
[2019-03-21] MEDS ORDERED: DEXTROSE 50%-WATER SYRINGE 25 GM/50 ML DOSE IV PRN (08:00)
[2019-03-21] MEDS ORDERED: DEXTROSE 40% GEL 15 GM TUBE PO PRN (08:00)
[2019-03-21] MEDS: INSULIN REG, HUMAN 100 UNIT/ML 3 ML VIAL (PYX) SUBCUT SCH ×4 (09:05→21:28)
[2019-03-21 09:16] LABS: ARTERIAL BLOOD BASE EXCESS 1.5 mmol/L; ARTERIAL BLOOD H2CO3 0.97 mmol/L (1.05-1.35); ARTERIAL BLOOD HCO3 24.4 mmol/L (20-24); ARTERIAL BLOOD O2 SATURATION 96.8 % (94-98); ARTERIAL BLOOD PCO2 32.1 mmHg (35-45); ARTERIAL BLOOD PO2 80.5 mmHg (80-100); ARTERIAL BLOOD TOTAL CO2 25.3 mmol/L (23-27)
[2019-03-21 09:17] LABS: ARTERIAL BLOOD FIO2 ROOM AIR
[2019-03-21] MEDS ORDERED: MAGNESIUM SULFATE 4 GM/D5W 100 ML IV ONE (09:30)
[2019-03-21] MEDS: ERTAPENEM SODIUM 1 GM in NORMAL SALINE 50 ML IV SCH (10:45)
[2019-03-21] MEDS: RINGERS SOLUTION,LACTATED 1,000 ML IV PRN ×2 (11:33→22:17)
[2019-03-21 13:33] LABS: PATH REVIEW PATHOLOGIST REVIEWED
--- NOTE | 2019-03-21 21:54 | PDOC H&P ---
History of Present Illness Admission Date/PCP: 03/21/19 02:07 YASSINE JOSEPH MD History of Present Illness: LOI RUVALCABA is a 63 year old male, He has a history of alcohol abuse e xtremely noncompliant, alcohol-related diabetes mellitus, he came to the emergency room for evaluation of altered mental status, vomiting, in the emergency room he did not volunteer much history, he was found to be very acidotic, he has elevated serum lactic acid, the serum glucose was also elevated , he was not in DKA. Because of the acidosis he was started on bicarbonate infusion.When I saw patient on the floor he was more concerned about his knees, he has arthropathy.He was also found to be hypothermic with tachycardia, the urine culture is growing gram-negative rods, chest x-ray is clear, History taking is a challenge,Patient is an alcoholic, he is probably immunocompromised because of alcohol abuse history the potential source of sepsis is not apparent at this time, he is presently pancultured will be empirically treated with IV antibiotic Past Medical History Cardiac Medical History: Reports: Hypertension Endocrine Medical History: Reports: Diabetes Mellitus Type 2 Musculoskeltal Medical History: Reports: Arthritis Social History Smoking Status: Unknown if Ever Smoked Frequency of Alcohol Use: None Hx Recreational Drug Use: No Drugs: None Hx Prescription Drug Abuse: No Family History Family History: Reviewed & Not Pertinent Parental Family History Reviewed: Yes Children Family History Reviewed: Yes Sibling(s) Family History Reviewed.: Yes Medication/Allergy Home Medications: Insulin Detemir [Levemir] 15 unit SQ DAILY 03/21/19 Allergies/Adverse Reactions: minerals [From Enviro Stress] Allergy (Verified 02/18/18 19:34) vitamin B complex and C [From Enviro Stress] Allergy (Verified 02/18/18 19:34) vitamin E (d-alpha tocopherol) [From Enviro Stress] Allergy (Verified 02/18/18 19:34) Review of Systems ROS unobtainable: Due to mental status Constitutional: ABSENT: chills, fever(s), headache(s), weight gain, weight loss Eyes: ABSENT: visual disturbances Ears: ABSENT: hearing changes Cardiovascular: ABSENT: chest pain, dyspnea on exertion, edema, orthropnea, palpitations Respiratory: PRESENT: cough Gastrointestinal: ABSENT: abdominal pain, constipation, diarrhea, hematemesis, hematochezia, nausea, vomiting Genitourinary: ABSENT: dysuria, hematuria Musculoskeletal: PRESENT: joint swelling Integumentary: ABSENT: rash, wounds Neurological: ABSENT: abnormal gait, abnormal speech, confusion, dizziness, focal weakness, syncope Psychiatric: ABSENT: anxiety, depression, homidical ideation, suicidal ideation Endocrine: ABSENT: cold intolerance, heat intolerance, menstrual abnormalities, polydipsia, polyuria Hematologic/Lymphatic: ABSENT: easy bleeding, easy bruising, lymphadenopathy Physical Exam Vital Signs: Temp Pulse Resp BP Pulse Ox 98.1 F 104 H 20 100/78 100 03/21/19 20:00 03/21/19 19:04 03/21/19 18:00 03/21/19 18:00 03/21/19 18:00 Intake & Output 03/20/19 03/21/19 03/22/19 06:59 06:59 06:59 Intake Total 3100 1590 Output Total 2150 935 Balance 950 655 Weight 71.8 kg 71.8 kg General appearance: PRESENT: no acute distress Head exam: PRESENT: atraumatic, normocephalic Eye exam: PRESENT: PERRLA Ear exam: PRESENT: normal external ear exam Mouth exam: PRESENT: moist, tongue midline Neck exam: PRESENT: full ROM Respiratory exam: PRESENT: clear to auscultation jennifer Cardiovascular exam: PRESENT: +S1, +S2 Vascular exam: PRESENT: normal capillary refill GI/Abdominal exam: PRESENT: soft Rectal exam: PRESENT: deferred Neurological exam: PRESENT: alert Psychiatric exam: PRESENT: appropriate affect, normal mood Skin exam: PRESENT: dry, intact, warm Results Laboratory Results: 03/20/19 23:09 03/21/19 06:19 03/20/19 03/20/19 03/20/19 23:09 23:09 23:20 WBC 12.9 H RBC 3.35 L Hgb 11.8 L Hct 37.2 L MCV 111 H MCH 35.3 H MCHC 31.8 L RDW 17.3 H Plt Count 111 L Seg Neutrophils % Not Reportable Carbonic Acid HCO3/H2CO3 Ratio ABG pH ABG pCO2 ABG pO2 ABG HCO3 ABG O2 Saturation ABG Base Excess VBG pH VBG pCO2 VBG HCO3 VBG Base Excess FiO2 Sodium 144.9 Potassium 5.1 H Chloride 101 Carbon Dioxide < 5 L* Anion Gap Not Reportable BUN 11 Creatinine 1.44 H Est GFR ( Amer) > 60 Glucose 103 Lactic Acid 23.1 H Calcium 9.3 Magnesium Total Bilirubin 1.9 H AST 329 H Alkaline Phosphatase 153 H Total Protein 9.8 H Albumin 4.6 Urine Color Urine Appearance Urine pH Ur Specific [place] Urine Protein Urine Glucose (UA) Urine Ketones Urine Blood Urine Nitrite Ur Leukocyte Esterase Urine WBC (Auto) Urine RBC (Auto) 03/20/19 03/20/19 03/20/19 23:20 23:20 23:22 WBC RBC Hgb Hct MCV MCH MCHC RDW Plt Count Seg Neutrophils % Carbonic Acid HCO3/H2CO3 Ratio ABG pH ABG pCO2 ABG pO2 ABG HCO3 ABG O2 Saturation ABG Base Excess VBG pH 6.95 L* VBG pCO2 25.5 L VBG HCO3 5.5 L VBG Base Excess -25.5 FiO2 Sodium Potassium Chloride Carbon Dioxide Anion Gap BUN Creatinine Est GFR ( Amer) Glucose Lactic Acid Calcium Magnesium 1.3 L Total Bilirubin AST Alkaline Phosphatase Total Protein Albumin Urine Color YELLOW Urine Appearance SLIGHTLY-CLOUDY Urine pH 5.0 Ur Specific [place] 1.011 Urine Protein 100 H Urine Glucose (UA) NEGATIVE Urine Ketones 20 H Urine Blood MODERATE H Urine Nitrite NEGATIVE Ur Leukocyte Esterase NEGATIVE Urine WBC (Auto) 6 Urine RBC (Auto) 4 03/21/19 03/21/19 03/21/19 02:10 06:19 06:19 WBC RBC Hgb Hct MCV MCH MCHC RDW Plt Count Seg Neutrophils % Carbonic Acid HCO3/H2CO3 Ratio ABG pH ABG pCO2 ABG pO2 ABG HCO3 ABG O2 Saturation ABG Base Excess VBG pH VBG pCO2 VBG HCO3 VBG Base Excess FiO2 Sodium 139.8 Potassium 4.0 D Chloride 100 Carbon Dioxide 19 L D Anion Gap 21 H BUN 12 Creatinine 0.99 Est GFR ( Amer) > 60 Glucose 302 H Lactic Acid 18.2 H 7.0 H Calcium 7.6 L Magnesium 0.9 L* Total Bilirubin AST Alkaline Phosphatase Total Protein Albumin Urine Color Urine Appearance Urine pH Ur Specific [place] Urine Protein Urine Glucose (UA) Urine Ketones Urine Blood Urine Nitrite Ur Leukocyte Esterase Urine WBC (Auto) Urine RBC (Auto) 03/21/19 03/21/19 03/21/19 09:00 15:30 19:18 WBC RBC Hgb Hct MCV MCH MCHC RDW Plt Count Seg Neutrophils % Carbonic Acid 0.97 L HCO3/H2CO3 Ratio 25:1 ABG pH 7.50 H ABG pCO2 32.1 L ABG pO2 80.5 ABG HCO3 24.4 H ABG O2 Saturation 96.8 ABG Base Excess 1.5 VBG pH VBG pCO2 VBG HCO3 VBG Base Excess FiO2 ROOM AIR Sodium Potassium Chloride Carbon Dioxide Anion Gap BUN Creatinine Est GFR ( Amer) Glucose Lactic Acid Calcium Magnesium 2.3 D 2.1 Total Bilirubin AST Alkaline Phosphatase Total Protein Albumin Urine Color Urine Appearance Urine pH Ur Specific [place] Urine Protein Urine Glucose (UA) Urine Ketones Urine Blood Urine Nitrite Ur Leukocyte Esterase Urine WBC (Auto) Urine RBC (Auto) 03/20/19 03/20/19 23:20 23:20 Creatine Kinase 248 H Troponin I 0.016 Impressions: Chest X-Ray 03/20/19 00:00 IMPRESSION: Clear lungs. Head CT 03/20/19 23:42 IMPRESSION: Mild atrophy and chronic small vessel ischemic changes with no acute intracranial abnormality. Assessment & Plan - Diagnosis (1) Metabolic acidosis Is this a current diagnosis for this admission?: Yes Plan: Patient already started on bicarbonate infusion, she will continue same treatment (2) Sepsis Qualifiers: Sepsis type: sepsis due to unspecified organism Sepsis acute organ dysfunction status: unspecified Qualified Code(s): A41.9 - Sepsis, unspecified organism Is this a current diagnosis for this admission?: Yes (3) Alcohol abuse Is this a current diagnosis for this admission?: Yes (4) T2DM (type 2 diabetes mellitus) Is this a current diagnosis for this admission?: Yes (5) Lactic acid acidosis Is this a current diagnosis for this admission?: Yes
[2019-03-21] MEDS ORDERED: THIAMINE HCL 100 MG, FOLIC ACID 1 MG in NORMAL SALINE 250 ML IV SCH (22:00)
[2019-03-22 04:20] LABS: BLOOD UREA NITROGEN 15 mg/dL (7-20); CALCIUM 8.1 mg/dL (8.4-10.2); CHLORIDE 100 mmol/L (98-107); GLUCOSE 136 mg/dL (75-110); POTASSIUM 3.5 mmol/L (3.6-5.0)
[2019-03-22 04:36] LABS: ANION GAP 7 (5-19)
[2019-03-22 04:37] LABS: FREE T4 (FREE THYROXINE) 0.97 ng/dL (0.78-2.19)
[2019-03-22 04:39] LABS: CARBON DIOXIDE 30 mmol/L (22-30)
[2019-03-22 04:51] LABS: THYROID STIMULATING HORMONE 4.96 uIU/mL (0.47-4.68)
[2019-03-22] MEDS: ERTAPENEM SODIUM 1 GM in NORMAL SALINE 50 ML IV SCH (10:15)
[2019-03-22] MEDS: INSULIN REG, HUMAN 100 UNIT/ML 3 ML VIAL (PYX) SUBCUT SCH ×4 (10:16→22:35)
[2019-03-22] MEDS: THIAMINE HCL 100 MG, FOLIC ACID 1 MG in NORMAL SALINE 250 ML IV SCH (10:20)
[2019-03-22] MEDS ORDERED: INSULIN DETEMIR 15 UNIT SQ SCH (12:45)
[2019-03-22] MEDS ORDERED: MAG HYDROX/AL HYDROX/SIMETH SUSP 30 ML UDCUP PO PRN (15:54)
[2019-03-22] MEDS: INSULIN GLARGINE,HUM.REC.ANLOG 1,000 UNIT/10 ML VIAL SUBCUT SCH (15:55)
[2019-03-22 18:25] LABS: ALBUMIN 3.4 g/dL (3.5-5.0); ALKALINE PHOSPHATASE 113 U/L (38-126); ANION GAP 9 (5-19); ASPARTATE AMINO TRANSFERASE 289 U/L (17-59); BILIRUBIN,DIRECT 0.6 mg/dL (0.0-0.4); BILIRUBIN,TOTAL 1.9 mg/dL (0.2-1.3); BLOOD UREA NITROGEN 12 mg/dL (7-20); CALCIUM 8.8 mg/dL (8.4-10.2); CARBON DIOXIDE 32 mmol/L (22-30); CHLORIDE 96 mmol/L (98-107); GLUCOSE 182 mg/dL (75-110); POTASSIUM 3.5 mmol/L (3.6-5.0); TOTAL PROTEIN 8.4 g/dL (6.3-8.2)
[2019-03-22 19:07] LABS: ABSOLUTE LYMPHOCYTES (AUTO) 1.4 10^3/uL (0.5-4.7); ABSOLUTE MONOCYTES (AUTO) 0.4 10^3/uL (0.1-1.4); ABSOLUTE NEUT (AUTO) 5.5 10^3/uL (1.7-8.2); BASOPHILS % (AUTO) 0.4 % (0-2); EOSINOPHILS % (AUTO) 0.2 % (0-6); HEMATOCRIT 31.1 % (37.9-51.0); HEMOGLOBIN 10.7 g/dL (13.5-17.0); LYMPHOCYTES % (AUTO) 19.5 % (13-45); MEAN CORPUSCULAR HEMOGLOBIN 34.9 pg (27.0-33.4); MEAN CORPUSCULAR HGB CONC 34.3 g/dL (32.0-36.0); MONOCYTES % (AUTO) 5.2 % (3-13); RED BLOOD COUNT 3.06 10^6/uL (4.35-5.55); RED CELL DISTRIBUTION WIDTH 16.1 % (11.5-14.0); SEGMENTED NEUTROPHILS % (AUTO) 74.7 % (42-78); TOTAL CELLS COUNTED % (AUTO) 100 %; WHITE BLOOD COUNT 7.4 10^3/uL (4.0-10.5)
[2019-03-22 19:20] LABS: MEAN CORPUSCULAR VOLUME 102 fl (80-97)
[2019-03-22 19:24] LABS: PLATELET COUNT 60 10^3/uL (150-450)
--- NOTE | 2019-03-22 22:49 | PDOC PROGRESS REPORT ---
Subjective Progress Note for:: 03/22/19 Subjective:: Patient seen by the bedside yesterday he was downgraded to telemetry bed, patient is seen in ICU bed, he complain of acid reflux, complain of pain of the right knee,The urine culture grew Enterobacter, Presently on IV ertapenem Reason For Visit: METABOLIC ACIDOSIS,AMS Physical Exam Vital Signs: Temp Pulse Resp BP Pulse Ox 97.5 F 96 15 133/95 H 100 03/22/19 16:00 03/22/19 20:00 03/22/19 20:00 03/22/19 20:00 03/22/19 18:09 Intake & Output 03/21/19 03/22/19 03/23/19 06:59 06:59 06:59 Intake Total 3100 2590 50 Output Total 2150 1335 900 Balance 950 1255 -850 Weight 71.8 kg 73.7 kg General appearance: PRESENT: no acute distress Eye exam: PRESENT: PERRLA Respiratory exam: PRESENT: clear to auscultation jennifer Cardiovascular exam: PRESENT: +S1, +S2 GI/Abdominal exam: PRESENT: soft Neurological exam: PRESENT: alert Results Laboratory Results: 03/22/19 18:58 03/22/19 18:01 03/22/19 03/22/19 03/22/19 03:51 03:51 18:01 WBC Cancelled RBC Cancelled Hgb Cancelled Hct Cancelled MCV Cancelled MCH Cancelled MCHC Cancelled RDW Cancelled Plt Count Cancelled Seg Neutrophils % Cancelled Sodium 137.3 Potassium 3.5 L Chloride 100 Carbon Dioxide 30 D Anion Gap 7 BUN 15 Creatinine 0.91 Est GFR ( Amer) > 60 Glucose 136 H Calcium 8.1 L Magnesium 1.8 Total Bilirubin AST Alkaline Phosphatase Total Protein Albumin TSH 4.96 H Free T4 0.97 03/22/19 03/22/19 18:01 18:58 WBC 7.4 RBC 3.06 L Hgb 10.7 L Hct 31.1 L MCV 102 H D MCH 34.9 H MCHC 34.3 RDW 16.1 H Plt Count 60 L Seg Neutrophils % 74.7 Sodium 136.9 L Potassium 3.5 L Chloride 96 L Carbon Dioxide 32 H Anion Gap 9 BUN 12 Creatinine 0.78 Est GFR ( Amer) > 60 Glucose 182 H Calcium 8.8 Magnesium Total Bilirubin 1.9 H AST 289 H Alkaline Phosphatase 113 Total Protein 8.4 H Albumin 3.4 L TSH Free T4 03/20/19 03/20/19 23:20 23:20 Creatine Kinase 248 H Troponin I 0.016 Impressions: Chest X-Ray 03/20/19 00:00 IMPRESSION: Clear lungs. Head CT 03/20/19 23:42 IMPRESSION: Mild atrophy and chronic small vessel ischemic changes with no acute intracranial abnormality. Assessment & Plan - Diagnosis (1) Sepsis Qualifiers: Sepsis type: sepsis due to unspecified organism Sepsis acute organ dysfunction status: unspecified Qualified Code(s): A41.9 - Sepsis, unspecified organism Is this a current diagnosis for this admission?: Yes (2) Alcohol abuse Is this a current diagnosis for this admission?: Yes (3) T2DM (type 2 diabetes mellitus) Is this a current diagnosis for this admission?: Yes (4) Urinary tract infection due to Enterococcus Is this a current diagnosis for this admission?: Yes (5) Infection due to Enterobacter species Is this a current diagnosis for this admission?: Yes Plan: Continue IV antibiotic
[2019-03-23 05:59] LABS: ANION GAP 9 (5-19); BLOOD UREA NITROGEN 10 mg/dL (7-20); CALCIUM 8.6 mg/dL (8.4-10.2); CARBON DIOXIDE 29 mmol/L (22-30); CHLORIDE 100 mmol/L (98-107); GLUCOSE 149 mg/dL (75-110); POTASSIUM 3.3 mmol/L (3.6-5.0)
[2019-03-23 06:58] LABS: ABSOLUTE LYMPHOCYTES (AUTO) 2.2 10^3/uL (0.5-4.7); ABSOLUTE MONOCYTES (AUTO) 0.5 10^3/uL (0.1-1.4); ABSOLUTE NEUT (AUTO) 4.8 10^3/uL (1.7-8.2); BASOPHILS % (AUTO) 0.3 % (0-2); EOSINOPHILS % (AUTO) 0.6 % (0-6); HEMATOCRIT 31.3 % (37.9-51.0); HEMOGLOBIN 10.7 g/dL (13.5-17.0); LYMPHOCYTES % (AUTO) 29.6 % (13-45); MEAN CORPUSCULAR HEMOGLOBIN 35.2 pg (27.0-33.4); MEAN CORPUSCULAR HGB CONC 34.1 g/dL (32.0-36.0); MEAN CORPUSCULAR VOLUME 103 fl (80-97); MONOCYTES % (AUTO) 6.6 % (3-13); RED BLOOD COUNT 3.03 10^6/uL (4.35-5.55); RED CELL DISTRIBUTION WIDTH 15.8 % (11.5-14.0); SEGMENTED NEUTROPHILS % (AUTO) 62.9 % (42-78); TOTAL CELLS COUNTED % (AUTO) 100 %; WHITE BLOOD COUNT 7.6 10^3/uL (4.0-10.5)
[2019-03-23 07:11] LABS: PLATELET COUNT 60 10^3/uL (150-450)
[2019-03-23] MEDS: INSULIN REG, HUMAN 100 UNIT/ML 3 ML VIAL (PYX) SUBCUT SCH ×4 (09:51→21:58)
[2019-03-23] MEDS: INSULIN GLARGINE,HUM.REC.ANLOG 1,000 UNIT/10 ML VIAL SUBCUT SCH (10:59)
[2019-03-23] MEDS: ERTAPENEM SODIUM 1 GM in NORMAL SALINE 50 ML IV SCH (11:01)
[2019-03-23] MEDS: THIAMINE HCL 100 MG, FOLIC ACID 1 MG in NORMAL SALINE 250 ML IV SCH (11:02)
[2019-03-23] MEDS ORDERED: LORAZEPAM INJ 2 MG/1 ML VIAL ONE (14:15)
[2019-03-23] MEDS: LORAZEPAM 1 MG TABLET PO SCH ×2 (16:43→23:25)
--- NOTE | 2019-03-23 18:03 | PDOC PROGRESS REPORT ---
Subjective Progress Note for:: 03/23/19 Subjective:: Patient seen by the bedside, he is extremely confused, hallucinating, he stated that people in the wall while talking about him on because they were talking about him they make him to have a lot of tremors. Patient is an alcoholic and apparently is withdrawing, his last drink was about 3 days ago he typically drink vodka, most alcoholic experiences withdrawal syndrome 7 2 hours after the last drink, which is what we are seeing in this patient at this time. We will initiate alcohol withdrawal protocol, he also put his IV lines, he will have restraint of his wrist to prevent injury to himself Reason For Visit: METABOLIC ACIDOSIS,AMS Physical Exam Vital Signs: Temp Pulse Resp BP Pulse Ox 98.4 F 108 H 20 131/90 H 99 03/23/19 03:07 03/23/19 13:55 03/23/19 03:07 03/23/19 03:07 03/23/19 03:07 Intake & Output 03/22/19 03/23/19 03/24/19 06:59 06:59 06:59 Intake Total 2590 50 912.4 Output Total 1335 2950 Balance 1255 -2900 912.4 Weight 73.7 kg 74.5 kg Results Laboratory Results: 03/23/19 03:57 03/23/19 03:57 03/22/19 03/22/19 03/22/19 18:01 18:01 18:58 WBC Cancelled 7.4 RBC Cancelled 3.06 L Hgb Cancelled 10.7 L Hct Cancelled 31.1 L MCV Cancelled 102 H D MCH Cancelled 34.9 H MCHC Cancelled 34.3 RDW Cancelled 16.1 H Plt Count Cancelled 60 L Seg Neutrophils % Cancelled 74.7 Sodium 136.9 L Potassium 3.5 L Chloride 96 L Carbon Dioxide 32 H Anion Gap 9 BUN 12 Creatinine 0.78 Est GFR ( Amer) > 60 Glucose 182 H Calcium 8.8 Magnesium Total Bilirubin 1.9 H AST 289 H Alkaline Phosphatase 113 Total Protein 8.4 H Albumin 3.4 L 03/23/19 03/23/19 03:57 03:57 WBC 7.6 RBC 3.03 L Hgb 10.7 L Hct 31.3 L MCV 103 H MCH 35.2 H MCHC 34.1 RDW 15.8 H Plt Count 60 L Seg Neutrophils % 62.9 Sodium 137.7 Potassium 3.3 L Chloride 100 Carbon Dioxide 29 Anion Gap 9 BUN 10 Creatinine 0.78 Est GFR ( Amer) > 60 Glucose 149 H Calcium 8.6 Magnesium 1.4 L Total Bilirubin AST Alkaline Phosphatase Total Protein Albumin 03/20/19 23:22 Catheterized Urine Urine Culture - Final Enterobacter Cloacae Enterococcus Faecalis(Group D) 03/20/19 03/20/19 23:20 23:20 Creatine Kinase 248 H Troponin I 0.016 Impressions: Chest X-Ray 03/20/19 00:00 IMPRESSION: Clear lungs. Head CT 03/20/19 23:42 IMPRESSION: Mild atrophy and chronic small vessel ischemic changes with no acute intracranial abnormality. Assessment & Plan - Diagnosis (1) Sepsis Qualifiers: Sepsis type: sepsis due to unspecified organism Sepsis acute organ dysfunction status: unspecified Qualified Code(s): A41.9 - Sepsis, unspecified organism Is this a current diagnosis for this admission?: Yes (2) Alcohol abuse Is this a current diagnosis for this admission?: Yes (3) T2DM (type 2 diabetes mellitus) Is this a current diagnosis for this admission?: Yes (4) Urinary tract infection due to Enterococcus Is this a current diagnosis for this admission?: Yes (5) Infection due to Enterobacter species Is this a current diagnosis for this admission?: Yes (6) Alcohol withdrawal syndrome Qualifiers: Complication of substance-induced condition: with delirium Qualified Code(s): F10.231 - Alcohol dependence with withdrawal delirium Is this a current diagnosis for this admission?: Yes Plan: Start Lorazepam
[2019-03-23] MEDS: LORAZEPAM INJ 2 MG/1 ML VIAL IV PRN (23:20)
[2019-03-24] MEDS: LORAZEPAM 1 MG TABLET PO SCH ×3 (05:24→17:06)
[2019-03-24] MEDS: LORAZEPAM INJ 2 MG/1 ML VIAL IV PRN ×2 (05:43→15:21)
[2019-03-24] MEDS: INSULIN REG, HUMAN 100 UNIT/ML 3 ML VIAL (PYX) SUBCUT SCH ×4 (08:08→21:38)
[2019-03-24] MEDS: ERTAPENEM SODIUM 1 GM in NORMAL SALINE 50 ML IV SCH (10:02)
[2019-03-24] MEDS: THIAMINE HCL 100 MG, FOLIC ACID 1 MG in NORMAL SALINE 250 ML IV SCH (10:29)
[2019-03-24] MEDS: INSULIN GLARGINE,HUM.REC.ANLOG 1,000 UNIT/10 ML VIAL SUBCUT SCH (11:16)
--- NOTE | 2019-03-24 22:35 | PDOC PROGRESS REPORT ---
Subjective Progress Note for:: 03/24/19 Subjective:: Patient seen by the bedside, he has less hallucination today Reason For Visit: METABOLIC ACIDOSIS,AMS Physical Exam Vital Signs: Temp Pulse Resp BP Pulse Ox 98.0 F 88 18 140/90 H 100 03/24/19 16:00 03/24/19 19:00 03/24/19 16:00 03/24/19 16:00 03/24/19 16:00 Intake & Output 03/23/19 03/24/19 03/25/19 06:59 06:59 06:59 Intake Total 50 962.4 661.2 Output Total 2950 1300 500 Balance -2900 -337.6 161.2 Weight 74.5 kg 72.5 kg General appearance: PRESENT: no acute distress Eye exam: PRESENT: PERRLA Respiratory exam: PRESENT: clear to auscultation jennifer Cardiovascular exam: PRESENT: +S1, +S2 GI/Abdominal exam: PRESENT: soft Neurological exam: PRESENT: alert Results Laboratory Results: 03/23/19 03:57 03/23/19 03:57 03/24/19 04:40 Magnesium 1.3 L 03/20/19 03/20/19 23:20 23:20 Creatine Kinase 248 H Troponin I 0.016 Impressions: Chest X-Ray 03/20/19 00:00 IMPRESSION: Clear lungs. Head CT 03/20/19 23:42 IMPRESSION: Mild atrophy and chronic small vessel ischemic changes with no acute intracranial abnormality. Assessment & Plan - Diagnosis (1) Sepsis Qualifiers: Sepsis type: sepsis due to unspecified organism Sepsis acute organ dysfunction status: unspecified Qualified Code(s): A41.9 - Sepsis, unspecified organism Is this a current diagnosis for this admission?: Yes Plan: Continue IV antibiotic (2) Alcohol abuse Is this a current diagnosis for this admission?: Yes (3) T2DM (type 2 diabetes mellitus) Is this a current diagnosis for this admission?: Yes (4) Urinary tract infection due to Enterococcus Is this a current diagnosis for this admission?: Yes (5) Infection due to Enterobacter species Is this a current diagnosis for this admission?: Yes (6) Alcohol withdrawal syndrome Qualifiers: Complication of substance-induced condition: with delirium Qualified Code(s): F10.231 - Alcohol dependence with withdrawal delirium Is this a current diagnosis for this admission?: Yes Plan: Continue lorazepam protocol
[2019-03-24 23:18] LABS: ABSOLUTE EOSINOPHILS # (AUTO) 0.1 10^3/uL (0.0-0.6); ABSOLUTE LYMPHOCYTES (AUTO) 2.3 10^3/uL (0.5-4.7); ABSOLUTE MONOCYTES (AUTO) 0.6 10^3/uL (0.1-1.4); ABSOLUTE NEUT (AUTO) 3.9 10^3/uL (1.7-8.2); BASOPHILS % (AUTO) 0.5 % (0-2); EOSINOPHILS % (AUTO) 1.6 % (0-6); HEMATOCRIT 33.2 % (37.9-51.0); HEMOGLOBIN 11.2 g/dL (13.5-17.0); LYMPHOCYTES % (AUTO) 32.9 % (13-45); MEAN CORPUSCULAR HEMOGLOBIN 35.2 pg (27.0-33.4); MEAN CORPUSCULAR HGB CONC 33.8 g/dL (32.0-36.0); MEAN CORPUSCULAR VOLUME 104 fl (80-97); MONOCYTES % (AUTO) 8.9 % (3-13); RED BLOOD COUNT 3.19 10^6/uL (4.35-5.55); RED CELL DISTRIBUTION WIDTH 15.8 % (11.5-14.0); SEGMENTED NEUTROPHILS % (AUTO) 56.1 % (42-78); TOTAL CELLS COUNTED % (AUTO) 100 %; WHITE BLOOD COUNT 6.9 10^3/uL (4.0-10.5)
[2019-03-24 23:21] LABS: ALKALINE PHOSPHATASE 122 U/L (38-126); ANION GAP 8 (5-19); ASPARTATE AMINO TRANSFERASE 134 U/L (17-59); BILIRUBIN,DIRECT 0.6 mg/dL (0.0-0.4); BILIRUBIN,TOTAL 2.1 mg/dL (0.2-1.3); BLOOD UREA NITROGEN 12 mg/dL (7-20); CALCIUM 8.6 mg/dL (8.4-10.2); CARBON DIOXIDE 25 mmol/L (22-30); CHLORIDE 103 mmol/L (98-107); GLUCOSE 94 mg/dL (75-110); POTASSIUM 3.5 mmol/L (3.6-5.0); TOTAL PROTEIN 7.4 g/dL (6.3-8.2)
[2019-03-24 23:32] LABS: PLATELET COUNT 73 10^3/uL (150-450)
[2019-03-25] MEDS: LORAZEPAM 1 MG TABLET PO SCH ×4 (00:02→17:39)
[2019-03-25 05:48] LABS: ALKALINE PHOSPHATASE 128 U/L (38-126); ANION GAP 7 (5-19); ASPARTATE AMINO TRANSFERASE 120 U/L (17-59); BILIRUBIN,DIRECT 0.5 mg/dL (0.0-0.4); BILIRUBIN,TOTAL 2.1 mg/dL (0.2-1.3); BLOOD UREA NITROGEN 13 mg/dL (7-20); CALCIUM 8.7 mg/dL (8.4-10.2); CARBON DIOXIDE 26 mmol/L (22-30); CHLORIDE 105 mmol/L (98-107); GLUCOSE 87 mg/dL (75-110); POTASSIUM 3.5 mmol/L (3.6-5.0); TOTAL PROTEIN 7.4 g/dL (6.3-8.2)
[2019-03-25 06:36] LABS: ABSOLUTE EOSINOPHILS # (AUTO) 0.1 10^3/uL (0.0-0.6); ABSOLUTE LYMPHOCYTES (AUTO) 2.3 10^3/uL (0.5-4.7); ABSOLUTE MONOCYTES (AUTO) 0.6 10^3/uL (0.1-1.4); ABSOLUTE NEUT (AUTO) 3.8 10^3/uL (1.7-8.2); BASOPHILS % (AUTO) 0.4 % (0-2); EOSINOPHILS % (AUTO) 1.5 % (0-6); HEMATOCRIT 32.1 % (37.9-51.0); LYMPHOCYTES % (AUTO) 33.6 % (13-45); MEAN CORPUSCULAR HEMOGLOBIN 35.6 pg (27.0-33.4); MEAN CORPUSCULAR HGB CONC 34.2 g/dL (32.0-36.0); MEAN CORPUSCULAR VOLUME 104 fl (80-97); MONOCYTES % (AUTO) 8.8 % (3-13); RED BLOOD COUNT 3.09 10^6/uL (4.35-5.55); RED CELL DISTRIBUTION WIDTH 15.8 % (11.5-14.0); SEGMENTED NEUTROPHILS % (AUTO) 55.7 % (42-78); TOTAL CELLS COUNTED % (AUTO) 100 %; WHITE BLOOD COUNT 6.8 10^3/uL (4.0-10.5)
[2019-03-25 06:47] LABS: PLATELET COUNT 74 10^3/uL (150-450)
[2019-03-25] MEDS: INSULIN REG, HUMAN 100 UNIT/ML 3 ML VIAL (PYX) SUBCUT SCH ×4 (08:10→22:08)
[2019-03-25] MEDS: ERTAPENEM SODIUM 1 GM in NORMAL SALINE 50 ML IV SCH (09:35)
[2019-03-25] MEDS: THIAMINE HCL 100 MG, FOLIC ACID 1 MG in NORMAL SALINE 250 ML IV SCH (09:35)
[2019-03-25] MEDS: INSULIN GLARGINE,HUM.REC.ANLOG 1,000 UNIT/10 ML VIAL SUBCUT SCH (10:45)
[2019-03-25 11:58] LABS: CREATINE KINASE MB 0.44 ng/mL (<4.55)
[2019-03-25 12:02] LABS: TROPONIN I < 0.012 ng/mL
[2019-03-25] MEDS: LORAZEPAM INJ 2 MG/1 ML VIAL IV PRN (22:08)
--- NOTE | 2019-03-25 22:26 | PDOC PROGRESS REPORT ---
Subjective Progress Note for:: 03/25/19 Subjective:: Patient seen by the bedside, he is less confused, presently of wrist restraints Reason For Visit: METABOLIC ACIDOSIS,AMS Physical Exam Vital Signs: Temp Pulse Resp BP Pulse Ox 97.4 F 91 18 131/83 H 99 03/25/19 16:37 03/25/19 19:00 03/25/19 16:37 03/25/19 16:37 03/25/19 16:37 Intake & Output 03/24/19 03/25/19 03/26/19 06:59 06:59 06:59 Intake Total 962.4 821.2 1061.2 Output Total 1300 1225 500 Balance -337.6 -403.8 561.2 Weight 72.5 kg 72.2 kg General appearance: PRESENT: no acute distress Eye exam: PRESENT: PERRLA Respiratory exam: PRESENT: clear to auscultation jennifer Cardiovascular exam: PRESENT: +S1, +S2 GI/Abdominal exam: PRESENT: soft Neurological exam: PRESENT: alert Results Laboratory Results: 03/25/19 04:57 03/25/19 04:57 03/24/19 03/24/19 03/25/19 22:56 22:56 04:57 WBC 6.9 6.8 RBC 3.19 L 3.09 L Hgb 11.2 L 11.0 L Hct 33.2 L 32.1 L MCV 104 H 104 H MCH 35.2 H 35.6 H MCHC 33.8 34.2 RDW 15.8 H 15.8 H Plt Count 73 L 74 L Seg Neutrophils % 56.1 55.7 Sodium 136.4 L Potassium 3.5 L Chloride 103 Carbon Dioxide 25 Anion Gap 8 BUN 12 Creatinine 0.78 Est GFR ( Amer) > 60 Glucose 94 Calcium 8.6 Total Bilirubin 2.1 H AST 134 H Alkaline Phosphatase 122 Total Protein 7.4 Albumin 3.0 L 03/25/19 04:57 WBC RBC Hgb Hct MCV MCH MCHC RDW Plt Count Seg Neutrophils % Sodium 138.1 Potassium 3.5 L Chloride 105 Carbon Dioxide 26 Anion Gap 7 BUN 13 Creatinine 0.80 Est GFR ( Amer) > 60 Glucose 87 Calcium 8.7 Total Bilirubin 2.1 H AST 120 H Alkaline Phosphatase 128 H Total Protein 7.4 Albumin 3.0 L 03/20/19 03/20/19 03/25/19 23:20 23:20 11:10 Creatine Kinase 248 H 76 CK-MB (CK-2) Troponin I 0.016 03/25/19 11:10 Creatine Kinase CK-MB (CK-2) 0.44 Troponin I < 0.012 Impressions: Chest X-Ray 03/20/19 00:00 IMPRESSION: Clear lungs. Head CT 03/20/19 23:42 IMPRESSION: Mild atrophy and chronic small vessel ischemic changes with no acute intracranial abnormality. Assessment & Plan - Diagnosis (1) Sepsis Qualifiers: Sepsis type: sepsis due to unspecified organism Sepsis acute organ dysfunction status: unspecified Qualified Code(s): A41.9 - Sepsis, unspecified organism Is this a current diagnosis for this admission?: Yes (2) Alcohol abuse Is this a current diagnosis for this admission?: Yes (3) T2DM (type 2 diabetes mellitus) Is this a current diagnosis for this admission?: Yes (4) Urinary tract infection due to Enterococcus Is this a current diagnosis for this admission?: Yes (5) Infection due to Enterobacter species Is this a current diagnosis for this admission?: Yes Plan: Continue IV antibiotic (6) Alcohol withdrawal syndrome Qualifiers: Complication of substance-induced condition: with delirium Qualified Code(s): F10.231 - Alcohol dependence with withdrawal delirium Is this a current diagnosis for this admission?: Yes Plan: Continue lorazepam
--- NOTE | 2019-03-25 22:59 | EKG REPORT ---
SEVERITY:- BORDERLINE ECG - SINUS RHYTHM LEFT AXIS DEVIATION BORDERLINE T WAVE ABNORMALITIES BORDERLINE PROLONGED QT INTERVAL : Confirmed by: Chrissy Broussard MD 25-Mar-2019 22:58:50
[2019-03-26] MEDS: LORAZEPAM 1 MG TABLET PO SCH ×4 (00:58→17:26)
[2019-03-26] MEDS: INSULIN REG, HUMAN 100 UNIT/ML 3 ML VIAL (PYX) SUBCUT SCH ×4 (07:35→22:24)
[2019-03-26] MEDS: THIAMINE HCL 100 MG, FOLIC ACID 1 MG in NORMAL SALINE 250 ML IV SCH (09:22)
[2019-03-26] MEDS: ERTAPENEM SODIUM 1 GM in NORMAL SALINE 50 ML IV SCH (09:23)
[2019-03-26] MEDS: INSULIN GLARGINE,HUM.REC.ANLOG 1,000 UNIT/10 ML VIAL SUBCUT SCH (09:23)
[2019-03-26] MEDS: LORAZEPAM INJ 2 MG/1 ML VIAL IV PRN (15:28)
--- NOTE | 2019-03-26 15:30 | PDOC PROGRESS REPORT ---
Subjective Progress Note for:: 03/26/19 Subjective:: Patient seen by the bedside, complaining of knee pain Reason For Visit: METABOLIC ACIDOSIS,AMS Physical Exam Vital Signs: Temp Pulse Resp BP Pulse Ox 97.6 F 84 16 96/65 L 95 03/26/19 11:00 03/26/19 14:00 03/26/19 11:00 03/26/19 11:00 03/26/19 11:00 Intake & Output 03/25/19 03/26/19 03/27/19 06:59 06:59 06:59 Intake Total 821.2 1211.2 301.2 Output Total 1225 1450 Balance -403.8 -238.8 301.2 Weight 72.2 kg 74.4 kg General appearance: PRESENT: no acute distress Eye exam: PRESENT: PERRLA Respiratory exam: PRESENT: clear to auscultation jennifer Cardiovascular exam: PRESENT: +S1, +S2 GI/Abdominal exam: PRESENT: soft Neurological exam: PRESENT: alert Results Laboratory Results: 03/25/19 04:57 03/25/19 04:57 03/21/19 00:55 Blood Blood Culture - Final NO GROWTH IN 5 DAYS 03/20/19 23:20 Blood Blood Culture - Final NO GROWTH IN 5 DAYS 03/20/19 03/20/19 03/25/19 23:20 23:20 11:10 Creatine Kinase 248 H 76 CK-MB (CK-2) Troponin I 0.016 03/25/19 11:10 Creatine Kinase CK-MB (CK-2) 0.44 Troponin I < 0.012 Impressions: Chest X-Ray 03/20/19 00:00 IMPRESSION: Clear lungs. Head CT 03/20/19 23:42 IMPRESSION: Mild atrophy and chronic small vessel ischemic changes with no acute intracranial abnormality. Assessment & Plan - Diagnosis (1) Sepsis Qualifiers: Sepsis type: sepsis due to unspecified organism Sepsis acute organ dysfunction status: unspecified Qualified Code(s): A41.9 - Sepsis, unspecified organism Is this a current diagnosis for this admission?: Yes (2) Alcohol abuse Is this a current diagnosis for this admission?: Yes (3) T2DM (type 2 diabetes mellitus) Is this a current diagnosis for this admission?: Yes (4) Urinary tract infection due to Enterococcus Is this a current diagnosis for this admission?: Yes (5) Infection due to Enterobacter species Is this a current diagnosis for this admission?: Yes Plan: Continue IV antibiotic (6) Alcohol withdrawal syndrome Qualifiers: Complication of substance-induced condition: with delirium Qualified Code(s): F10.231 - Alcohol dependence with withdrawal delirium Is this a current diagnosis for this admission?: Yes
[2019-03-26 16:28] LABS: ABSOLUTE EOSINOPHILS # (AUTO) 0.1 10^3/uL (0.0-0.6); ABSOLUTE LYMPHOCYTES (AUTO) 2.5 10^3/uL (0.5-4.7); ABSOLUTE MONOCYTES (AUTO) 0.7 10^3/uL (0.1-1.4); ABSOLUTE NEUT (AUTO) 5.6 10^3/uL (1.7-8.2); BASOPHILS % (AUTO) 0.3 % (0-2); EOSINOPHILS % (AUTO) 0.8 % (0-6); HEMATOCRIT 29.8 % (37.9-51.0); HEMOGLOBIN 10.3 g/dL (13.5-17.0); LYMPHOCYTES % (AUTO) 27.8 % (13-45); MEAN CORPUSCULAR HGB CONC 34.5 g/dL (32.0-36.0); MEAN CORPUSCULAR VOLUME 104 fl (80-97); MONOCYTES % (AUTO) 7.9 % (3-13); RED BLOOD COUNT 2.86 10^6/uL (4.35-5.55); RED CELL DISTRIBUTION WIDTH 15.8 % (11.5-14.0); SEGMENTED NEUTROPHILS % (AUTO) 63.2 % (42-78); TOTAL CELLS COUNTED % (AUTO) 100 %; WHITE BLOOD COUNT 8.9 10^3/uL (4.0-10.5)
[2019-03-26 16:38] LABS: ALKALINE PHOSPHATASE 109 U/L (38-126); ANION GAP 7 (5-19); ASPARTATE AMINO TRANSFERASE 91 U/L (17-59); BILIRUBIN,DIRECT 0.7 mg/dL (0.0-0.4); BILIRUBIN,TOTAL 2.3 mg/dL (0.2-1.3); BLOOD UREA NITROGEN 14 mg/dL (7-20); CALCIUM 8.4 mg/dL (8.4-10.2); CARBON DIOXIDE 27 mmol/L (22-30); CHLORIDE 102 mmol/L (98-107); GLUCOSE 102 mg/dL (75-110); POTASSIUM 3.7 mmol/L (3.6-5.0); TOTAL PROTEIN 7.3 g/dL (6.3-8.2)
[2019-03-26 17:08] LABS: PLATELET COUNT 95 10^3/uL (150-450)
[2019-03-27] MEDS: LORAZEPAM 1 MG TABLET PO SCH ×4 (00:48→17:59)
[2019-03-27] MEDS: LORAZEPAM INJ 2 MG/1 ML VIAL IV PRN ×3 (03:43→23:58)
[2019-03-27 04:37] LABS: ABSOLUTE EOSINOPHILS # (AUTO) 0.1 10^3/uL (0.0-0.6); ABSOLUTE LYMPHOCYTES (AUTO) 2.1 10^3/uL (0.5-4.7); ABSOLUTE MONOCYTES (AUTO) 0.6 10^3/uL (0.1-1.4); ABSOLUTE NEUT (AUTO) 4.7 10^3/uL (1.7-8.2); BASOPHILS % (AUTO) 0.3 % (0-2); HEMATOCRIT 30.3 % (37.9-51.0); HEMOGLOBIN 10.4 g/dL (13.5-17.0); LYMPHOCYTES % (AUTO) 27.9 % (13-45); MEAN CORPUSCULAR HEMOGLOBIN 36.3 pg (27.0-33.4); MEAN CORPUSCULAR HGB CONC 34.5 g/dL (32.0-36.0); MEAN CORPUSCULAR VOLUME 105 fl (80-97); MONOCYTES % (AUTO) 7.6 % (3-13); RED BLOOD COUNT 2.88 10^6/uL (4.35-5.55); RED CELL DISTRIBUTION WIDTH 15.6 % (11.5-14.0); SEGMENTED NEUTROPHILS % (AUTO) 63.2 % (42-78); TOTAL CELLS COUNTED % (AUTO) 100 %; WHITE BLOOD COUNT 7.4 10^3/uL (4.0-10.5)
[2019-03-27 05:03] LABS: PLATELET COUNT 91 10^3/uL (150-450)
[2019-03-27] MEDS: INSULIN REG, HUMAN 100 UNIT/ML 3 ML VIAL (PYX) SUBCUT SCH ×4 (08:30→21:39)
[2019-03-27] MEDS: INSULIN GLARGINE,HUM.REC.ANLOG 1,000 UNIT/10 ML VIAL SUBCUT SCH (09:53)
[2019-03-27] MEDS: ERTAPENEM SODIUM 1 GM in NORMAL SALINE 50 ML IV SCH (09:57)
[2019-03-27] MEDS: THIAMINE HCL 100 MG, FOLIC ACID 1 MG in NORMAL SALINE 250 ML IV SCH (10:47)
--- NOTE | 2019-03-27 16:35 | PDOC PROGRESS REPORT ---
Subjective Progress Note for:: 03/27/19 Subjective:: Patient seen by the bedside, he complain of pain in the knees Reason For Visit: METABOLIC ACIDOSIS,AMS Physical Exam Vital Signs: Temp Pulse Resp BP Pulse Ox 97.4 F 79 18 107/69 92 03/27/19 12:03 03/27/19 14:00 03/27/19 12:03 03/27/19 12:03 03/27/19 12:03 Intake & Output 03/26/19 03/27/19 03/28/19 06:59 06:59 06:59 Intake Total 1211.2 831.2 301.2 Output Total 1450 1750 Balance -238.8 -918.8 301.2 Weight 74.4 kg 71.2 kg General appearance: PRESENT: no acute distress Head exam: PRESENT: atraumatic, normocephalic Eye exam: PRESENT: PERRLA Neck exam: PRESENT: full ROM Respiratory exam: PRESENT: clear to auscultation jennifer Cardiovascular exam: PRESENT: RRR, +S1, +S2 Pulses: PRESENT: normal dorsalis pedis pul, +2 pedal pulses bilateral Vascular exam: PRESENT: normal capillary refill GI/Abdominal exam: PRESENT: normal bowel sounds, soft Rectal exam: PRESENT: deferred Neurological exam: PRESENT: alert, CN II-XII grossly intact Psychiatric exam: PRESENT: appropriate affect, normal mood Skin exam: PRESENT: dry, intact, warm. ABSENT: cyanosis, rash Results Laboratory Results: 03/27/19 04:11 03/26/19 15:50 03/26/19 03/26/19 03/27/19 15:50 15:50 04:11 WBC 8.9 7.4 RBC 2.86 L 2.88 L Hgb 10.3 L 10.4 L Hct 29.8 L 30.3 L MCV 104 H 105 H MCH 36.0 H 36.3 H MCHC 34.5 34.5 RDW 15.8 H 15.6 H Plt Count 95 L 91 L Seg Neutrophils % 63.2 63.2 Sodium 136.3 L Potassium 3.7 Chloride 102 Carbon Dioxide 27 Anion Gap 7 BUN 14 Creatinine 0.92 Est GFR ( Amer) > 60 Glucose 102 Calcium 8.4 Total Bilirubin 2.3 H AST 91 H Alkaline Phosphatase 109 Total Protein 7.3 Albumin 3.0 L 03/20/19 03/20/19 03/25/19 23:20 23:20 11:10 Creatine Kinase 248 H 76 CK-MB (CK-2) Troponin I 0.016 03/25/19 11:10 Creatine Kinase CK-MB (CK-2) 0.44 Troponin I < 0.012 Impressions: Chest X-Ray 03/20/19 00:00 IMPRESSION: Clear lungs. Head CT 03/20/19 23:42 IMPRESSION: Mild atrophy and chronic small vessel ischemic changes with no acute intracranial abnormality. Assessment & Plan - Diagnosis (1) Sepsis Qualifiers: Sepsis type: sepsis due to unspecified organism Sepsis acute organ dysfunction status: unspecified Qualified Code(s): A41.9 - Sepsis, unspecified organism Is this a current diagnosis for this admission?: Yes (2) Alcohol abuse Is this a current diagnosis for this admission?: Yes (3) T2DM (type 2 diabetes mellitus) Is this a current diagnosis for this admission?: Yes (4) Urinary tract infection due to Enterococcus Is this a current diagnosis for this admission?: Yes (5) Infection due to Enterobacter species Is this a current diagnosis for this admission?: Yes (6) Alcohol withdrawal syndrome Qualifiers: Complication of substance-induced condition: with delirium Qualified Code(s): F10.231 - Alcohol dependence with withdrawal delirium Is this a current diagnosis for this admission?: Yes - Plan Summary Plan Summary: DC IV antibiotic, DC Woodard catheter, get PT consult
[2019-03-28] MEDS: LORAZEPAM 1 MG TABLET PO SCH ×4 (01:21→17:43)
[2019-03-28] MEDS: INSULIN REG, HUMAN 100 UNIT/ML 3 ML VIAL (PYX) SUBCUT SCH ×4 (08:17→21:19)
[2019-03-28] MEDS: INSULIN GLARGINE,HUM.REC.ANLOG 1,000 UNIT/10 ML VIAL SUBCUT SCH (09:05)
[2019-03-28] MEDS: THIAMINE HCL 100 MG, FOLIC ACID 1 MG in NORMAL SALINE 250 ML IV SCH (09:07)
--- NOTE | 2019-03-28 20:09 | PDOC PROGRESS REPORT ---
Subjective Progress Note for:: 03/28/19 Subjective:: Patient seen by the bedside, he is very confused, pulling off his clothes Reason For Visit: METABOLIC ACIDOSIS,AMS Physical Exam Vital Signs: Temp Pulse Resp BP Pulse Ox 97.4 F 78 17 104/64 100 03/28/19 15:08 03/28/19 15:08 03/28/19 15:08 03/28/19 15:08 03/28/19 15:08 Intake & Output 03/27/19 03/28/19 03/29/19 06:59 06:59 06:59 Intake Total 831.2 521.2 880 Output Total 1750 1800 Balance -918.8 -1278.8 880 Weight 71.2 kg 67.2 kg General appearance: PRESENT: no acute distress Eye exam: PRESENT: PERRLA Respiratory exam: PRESENT: clear to auscultation jennifer Cardiovascular exam: PRESENT: +S1, +S2 GI/Abdominal exam: PRESENT: soft Neurological exam: PRESENT: altered Results Laboratory Results: 03/27/19 04:11 03/26/19 15:50 03/20/19 03/20/19 03/25/19 23:20 23:20 11:10 Creatine Kinase 248 H 76 CK-MB (CK-2) Troponin I 0.016 03/25/19 11:10 Creatine Kinase CK-MB (CK-2) 0.44 Troponin I < 0.012 Impressions: Chest X-Ray 03/20/19 00:00 IMPRESSION: Clear lungs. Head CT 03/20/19 23:42 IMPRESSION: Mild atrophy and chronic small vessel ischemic changes with no acute intracranial abnormality. Assessment & Plan - Diagnosis (1) Sepsis Qualifiers: Sepsis type: sepsis due to unspecified organism Sepsis acute organ dysfunction status: unspecified Qualified Code(s): A41.9 - Sepsis, unspecified organism Is this a current diagnosis for this admission?: Yes (2) Alcohol abuse Is this a current diagnosis for this admission?: Yes (3) T2DM (type 2 diabetes mellitus) Is this a current diagnosis for this admission?: Yes (4) Urinary tract infection due to Enterococcus Is this a current diagnosis for this admission?: Yes (5) Infection due to Enterobacter species Is this a current diagnosis for this admission?: Yes (6) Alcohol withdrawal syndrome Qualifiers: Complication of substance-induced condition: with delirium Qualified Code(s): F10.231 - Alcohol dependence with withdrawal delirium Is this a current diagnosis for this admission?: Yes Plan: Alcohol withdrawal syndrome continue present line of treatment
[2019-03-28 21:11] LABS: ABSOLUTE EOSINOPHILS # (AUTO) 0.1 10^3/uL (0.0-0.6); ABSOLUTE LYMPHOCYTES (AUTO) 2.2 10^3/uL (0.5-4.7); ABSOLUTE MONOCYTES (AUTO) 0.7 10^3/uL (0.1-1.4); ABSOLUTE NEUT (AUTO) 4.1 10^3/uL (1.7-8.2); BASOPHILS % (AUTO) 0.4 % (0-2); EOSINOPHILS % (AUTO) 1.4 % (0-6); HEMATOCRIT 32.1 % (37.9-51.0); HEMOGLOBIN 10.9 g/dL (13.5-17.0); MEAN CORPUSCULAR HEMOGLOBIN 35.9 pg (27.0-33.4); MEAN CORPUSCULAR VOLUME 106 fl (80-97); MONOCYTES % (AUTO) 10.1 % (3-13); PLATELET COUNT 120 10^3/uL (150-450); RED BLOOD COUNT 3.04 10^6/uL (4.35-5.55); RED CELL DISTRIBUTION WIDTH 15.2 % (11.5-14.0); SEGMENTED NEUTROPHILS % (AUTO) 57.1 % (42-78); TOTAL CELLS COUNTED % (AUTO) 100 %; WHITE BLOOD COUNT 7.1 10^3/uL (4.0-10.5)
[2019-03-28 21:33] LABS: ALBUMIN 3.3 g/dL (3.5-5.0); ALKALINE PHOSPHATASE 103 U/L (38-126); ANION GAP 10 (5-19); ASPARTATE AMINO TRANSFERASE 71 U/L (17-59); BILIRUBIN,DIRECT 0.7 mg/dL (0.0-0.4); BILIRUBIN,TOTAL 2.3 mg/dL (0.2-1.3); BLOOD UREA NITROGEN 13 mg/dL (7-20); CALCIUM 8.7 mg/dL (8.4-10.2); CARBON DIOXIDE 25 mmol/L (22-30); CHLORIDE 100 mmol/L (98-107); GLUCOSE 94 mg/dL (75-110); POTASSIUM 3.9 mmol/L (3.6-5.0)
[2019-03-29] MEDS: LORAZEPAM 1 MG TABLET PO SCH ×4 (02:24→18:09)
[2019-03-29 05:22] LABS: HEMATOCRIT 29.6 % (37.9-51.0); HEMOGLOBIN 10.2 g/dL (13.5-17.0); MEAN CORPUSCULAR HEMOGLOBIN 36.2 pg (27.0-33.4); MEAN CORPUSCULAR HGB CONC 34.5 g/dL (32.0-36.0); MEAN CORPUSCULAR VOLUME 105 fl (80-97); PLATELET COUNT 122 10^3/uL (150-450); RED BLOOD COUNT 2.82 10^6/uL (4.35-5.55); WHITE BLOOD COUNT 7.1 10^3/uL (4.0-10.5)
[2019-03-29 05:38] LABS: ALBUMIN 3.1 g/dL (3.5-5.0); ALKALINE PHOSPHATASE 100 U/L (38-126); ANION GAP 10 (5-19); ASPARTATE AMINO TRANSFERASE 66 U/L (17-59); BILIRUBIN,DIRECT 0.7 mg/dL (0.0-0.4); BILIRUBIN,TOTAL 2.2 mg/dL (0.2-1.3); BLOOD UREA NITROGEN 16 mg/dL (7-20); CALCIUM 8.5 mg/dL (8.4-10.2); CARBON DIOXIDE 24 mmol/L (22-30); CHLORIDE 102 mmol/L (98-107); GLUCOSE 132 mg/dL (75-110); TOTAL PROTEIN 7.7 g/dL (6.3-8.2)
[2019-03-29 06:05] LABS: ABSOLUTE MONOCYTES # (MANUAL) 0.6 10^3/uL (0.1-1.4); BASOPHILS % (MANUAL) 0 % (0-2); EOSINOPHILS % (MANUAL) 1 % (0-6); LYMPHOCYTES % (MANUAL) 28 % (13-45); MONOCYTES % (MANUAL) 9 % (3-13); SEGMENTED NEUTROPHILS % (MAN) 62 % (42-78); TOTAL CELLS COUNTED 100
[2019-03-29 06:06] LABS: TEAR DROP CELLS SLIGHT
[2019-03-29 06:07] LABS: ANISOCYTOSIS SLIGHT; PLATELET COMMENT DECREASED
[2019-03-29] MEDS: INSULIN REG, HUMAN 100 UNIT/ML 3 ML VIAL (PYX) SUBCUT SCH ×4 (08:54→21:41)
[2019-03-29] MEDS: INSULIN GLARGINE,HUM.REC.ANLOG 1,000 UNIT/10 ML VIAL SUBCUT SCH (09:35)
[2019-03-29] MEDS: THIAMINE HCL 100 MG, FOLIC ACID 1 MG in NORMAL SALINE 250 ML IV SCH (09:35)
[2019-03-29] MEDS: LORAZEPAM INJ 2 MG/1 ML VIAL IV PRN (15:39)
--- NOTE | 2019-03-29 21:36 | PDOC PROGRESS REPORT ---
Subjective Progress Note for:: 03/29/19 Subjective:: Patient remained confused,he continued to require lorazepam Reason For Visit: METABOLIC ACIDOSIS,AMS Physical Exam Vital Signs: Temp Pulse Resp BP Pulse Ox 98.2 F 84 18 103/66 96 03/29/19 14:59 03/29/19 19:00 03/29/19 14:59 03/29/19 14:59 03/29/19 14:59 Intake & Output 03/28/19 03/29/19 03/30/19 06:59 06:59 06:59 Intake Total 521.2 1861.2 400 Output Total 1800 Balance -1278.8 1861.2 400 Weight 67.2 kg 59.7 kg General appearance: PRESENT: no acute distress Eye exam: PRESENT: PERRLA Respiratory exam: PRESENT: clear to auscultation jennifer Cardiovascular exam: PRESENT: +S1 GI/Abdominal exam: PRESENT: soft Neurological exam: PRESENT: alert Results Laboratory Results: 03/29/19 04:53 03/29/19 04:53 03/28/19 03/29/19 03/29/19 20:34 04:53 04:53 WBC 7.1 RBC 2.82 L Hgb 10.2 L Hct 29.6 L MCV 105 H MCH 36.2 H MCHC 34.5 RDW 15.0 H Plt Count 122 L Seg Neutrophils % Not Reportable Sodium 135.2 L 135.5 L Potassium 3.9 4.0 Chloride 100 102 Carbon Dioxide 25 24 Anion Gap 10 10 BUN 13 16 Creatinine 0.85 0.86 Est GFR ( Amer) > 60 > 60 Glucose 94 132 H Calcium 8.7 8.5 Total Bilirubin 2.3 H 2.2 H AST 71 H 66 H Alkaline Phosphatase 103 100 Total Protein 8.0 7.7 Albumin 3.3 L 3.1 L 03/20/19 03/20/19 03/25/19 23:20 23:20 11:10 Creatine Kinase 248 H 76 CK-MB (CK-2) Troponin I 0.016 03/25/19 11:10 Creatine Kinase CK-MB (CK-2) 0.44 Troponin I < 0.012 Impressions: Chest X-Ray 03/20/19 00:00 IMPRESSION: Clear lungs. Head CT 03/20/19 23:42 IMPRESSION: Mild atrophy and chronic small vessel ischemic changes with no acute intracranial abnormality. Assessment & Plan - Diagnosis (1) Sepsis Qualifiers: Sepsis type: sepsis due to unspecified organism Sepsis acute organ dysfunct ion status: unspecified Qualified Code(s): A41.9 - Sepsis, unspecified organism Is this a current diagnosis for this admission?: Yes (2) Alcohol abuse Is this a current diagnosis for this admission?: Yes (3) T2DM (type 2 diabetes mellitus) Is this a current diagnosis for this admission?: Yes (4) Urinary tract infection due to Enterococcus Is this a current diagnosis for this admission?: Yes (5) Infection due to Enterobacter species Is this a current diagnosis for this admission?: Yes (6) Alcohol withdrawal syndrome Qualifiers: Complication of substance-induced condition: with delirium Qualified Co de(s): F10.231 - Alcohol dependence with withdrawal delirium Is this a current diagnosis for this admission?: Yes Plan: Alcohol withdrawal syndrome continue present line of treatment
[2019-03-30] MEDS: LORAZEPAM 1 MG TABLET PO SCH ×3 (00:51→12:19)
[2019-03-30] MEDS: INSULIN REG, HUMAN 100 UNIT/ML 3 ML VIAL (PYX) SUBCUT SCH ×4 (09:53→21:51)
[2019-03-30] MEDS: THIAMINE HCL 100 MG, FOLIC ACID 1 MG in NORMAL SALINE 250 ML IV SCH (09:57)
[2019-03-30] MEDS: INSULIN GLARGINE,HUM.REC.ANLOG 1,000 UNIT/10 ML VIAL SUBCUT SCH (09:58)
[2019-03-30] MEDS: LORAZEPAM INJ 2 MG/1 ML VIAL IV PRN (16:27)
--- NOTE | 2019-03-30 19:29 | PDOC PROGRESS REPORT ---
Subjective Progress Note for:: 03/30/19 Subjective:: Patient seen by the bedside presently on PRN lorazepam very drowsy Reason For Visit: METABOLIC ACIDOSIS,AMS Physical Exam Vital Signs: Temp Pulse Resp BP Pulse Ox 98.3 F 85 16 109/58 L 100 03/30/19 15:51 03/30/19 15:51 03/30/19 15:51 03/30/19 15:51 03/30/19 15:51 Intake & Output 03/29/19 03/30/19 03/31/19 06:59 06:59 06:59 Intake Total 1861.2 791.2 491.2 Balance 1861.2 791.2 491.2 Weight 69.7 kg 69.2 kg General appearance: PRESENT: no acute distress Eye exam: PRESENT: PERRLA Respiratory exam: PRESENT: clear to auscultation jennifer Cardiovascular exam: PRESENT: +S1, +S2 Neurological exam: PRESENT: alert, CN II-XII grossly intact Results Laboratory Results: 03/29/19 04:53 03/29/19 04:53 03/20/19 03/20/19 03/25/19 23:20 23:20 11:10 Creatine Kinase 248 H 76 CK-MB (CK-2) Troponin I 0.016 03/25/19 11:10 Creatine Kinase CK-MB (CK-2) 0.44 Troponin I < 0.012 Impressions: Chest X-Ray 03/20/19 00:00 IMPRESSION: Clear lungs. Head CT 03/20/19 23:42 IMPRESSION: Mild atrophy and chronic small vessel ischemic changes with no acute intracranial abnormality. Assessment & Plan - Diagnosis (1) Sepsis Qualifiers: Sepsis type: sepsis due to unspecified organism Sepsis acute organ dysfunction status: unspecified Qualified Code(s): A41.9 - Sepsis, unspecified organism Is this a current diagnosis for this admission?: Yes (2) Alcohol abuse Is this a current diagnosis for this admission?: Yes (3) T2DM (type 2 diabetes mellitus) Is this a current diagnosis for this admission?: Yes (4) Urinary tract infection due to Enterococcus Is this a current diagnosis for this admission?: Yes (5) Infection due to Enterobacter species Is this a current diagnosis for this admission?: Yes Plan: Improved (6) Alcohol withdrawal syndrome Qualifiers: Complication of substance-induced condition: with delirium Qualified Code(s): F10.231 - Alcohol dependence with withdrawal delirium Is this a current diagnosis for this admission?: Yes Plan: Alcohol withdrawal syndrome continue present line of treatment
[2019-03-31] MEDS: INSULIN REG, HUMAN 100 UNIT/ML 3 ML VIAL (PYX) SUBCUT SCH ×4 (07:46→21:15)
[2019-03-31] MEDS: THIAMINE HCL 100 MG TABLET PO SCH (09:51)
[2019-03-31] MEDS: INSULIN GLARGINE,HUM.REC.ANLOG 1,000 UNIT/10 ML VIAL SUBCUT SCH (09:52)
--- NOTE | 2019-03-31 22:55 | PDOC PROGRESS REPORT ---
Subjective Progress Note for:: 03/31/19 Subjective:: Patient seen by the bedside presently off lorazepam Reason For Visit: METABOLIC ACIDOSIS,AMS Physical Exam Vital Signs: Temp Pulse Resp BP Pulse Ox 98.0 F 85 20 121/72 100 03/31/19 19:38 03/31/19 19:38 03/31/19 19:38 03/31/19 19:38 03/31/19 19:38 Intake & Output 03/30/19 03/31/19 04/01/19 06:59 06:59 06:59 Intake Total 791.2 591.2 550 Balance 791.2 591.2 550 Weight 69.2 kg General appearance: PRESENT: no acute distress Eye exam: PRESENT: PERRLA Respiratory exam: PRESENT: clear to auscultation jennifer Cardiovascular exam: PRESENT: +S1, +S2 GI/Abdominal exam: PRESENT: soft Neurological exam: PRESENT: alert, CN II-XII grossly intact Results Laboratory Results: 03/29/19 04:53 03/29/19 04:53 03/20/19 03/20/19 03/25/19 23:20 23:20 11:10 Creatine Kinase 248 H 76 CK-MB (CK-2) Troponin I 0.016 03/25/19 11:10 Creatine Kinase CK-MB (CK-2) 0.44 Troponin I < 0.012 Impressions: Chest X-Ray 03/20/19 00:00 IMPRESSION: Clear lungs. Head CT 03/20/19 23:42 IMPRESSION: Mild atrophy and chronic small vessel ischemic changes with no acute intracranial abnormality. Assessment & Plan - Diagnosis (1) Sepsis Qualifiers: Sepsis type: sepsis due to unspecified organism Sepsis acute organ dysfunction status: unspecified Qualified Code(s): A41.9 - Sepsis, unspecified organism Is this a current diagnosis for this admission?: Yes (2) Alcohol abuse Is this a current diagnosis for this admission?: Yes (3) T2DM (type 2 diabetes mellitus) Is this a current diagnosis for this admission?: Yes (4) Urinary tract infection due to Enterococcus Is this a current diagnosis for this admission?: Yes (5) Infection due to Enterobacter species Is this a current diagnosis for this admission?: Yes (6) Alcohol withdrawal syndrome Qualifiers: Complication of substance-induced condition: with delirium Qualified Code(s): F10.231 - Alcohol dependence with withdrawal delirium Is this a current diagnosis for this admission?: Yes
[2019-04-01] MEDS ORDERED: LORAZEPAM INJ 2 MG/1 ML VIAL ONE ×2 (00:31→21:44)
[2019-04-01] MEDS ORDERED: LORAZEPAM INJ 2 MG/1 ML VIAL IV ONE (00:45)
[2019-04-01] MEDS: INSULIN REG, HUMAN 100 UNIT/ML 3 ML VIAL (PYX) SUBCUT SCH ×3 (07:37→17:13)
[2019-04-01] MEDS: THIAMINE HCL 100 MG TABLET PO SCH (09:23)
[2019-04-01] MEDS: INSULIN GLARGINE,HUM.REC.ANLOG 1,000 UNIT/10 ML VIAL SUBCUT SCH (10:33)
[2019-04-01] MEDS: LORAZEPAM INJ 2 MG/1 ML VIAL IV PRN (21:55)
--- NOTE | 2019-04-01 23:20 | PDOC PROGRESS REPORT ---
Subjective Progress Note for:: 04/01/19 Subjective:: Patient seen by the bedside, remains confused, complaining of knee pain Reason For Visit: METABOLIC ACIDOSIS,AMS Physical Exam Vital Signs: Temp Pulse Resp BP Pulse Ox 97.9 F 79 18 98/66 L 98 04/01/19 19:42 04/01/19 19:42 04/01/19 19:42 04/01/19 19:42 04/01/19 19:42 Intake & Output 03/31/19 04/01/19 04/02/19 06:59 06:59 06:59 Intake Total 591.2 550 780 Balance 591.2 550 780 Weight 69.7 kg General appearance: PRESENT: no acute distress Eye exam: PRESENT: PERRLA Respiratory exam: PRESENT: clear to auscultation jennifer Cardiovascular exam: PRESENT: +S1, +S2 GI/Abdominal exam: PRESENT: soft Neurological exam: PRESENT: alert Results Laboratory Results: 03/29/19 04:53 03/29/19 04:53 03/20/19 03/20/19 03/25/19 23:20 23:20 11:10 Creatine Kinase 248 H 76 CK-MB (CK-2) Troponin I 0.016 03/25/19 11:10 Creatine Kinase CK-MB (CK-2) 0.44 Troponin I < 0.012 Impressions: Chest X-Ray 03/20/19 00:00 IMPRESSION: Clear lungs. Head CT 03/20/19 23:42 IMPRESSION: Mild atrophy and chronic small vessel ischemic changes with no acute intracranial abnormality. Assessment & Plan - Diagnosis (1) Sepsis Qualifiers: Sepsis type: sepsis due to unspecified organism Sepsis acute organ dysfunction status: unspecified Qualified Code(s): A41.9 - Sepsis, unspecified organism Is this a current diagnosis for this admission?: Yes (2) Alcohol abuse Is this a current diagnosis for this admission?: Yes (3) T2DM (type 2 diabetes mellitus) Is this a current diagnosis for this admission?: Yes (4) Urinary tract infection due to Enterococcus Is this a current diagnosis for this admission?: Yes (5) Infection due to Enterobacter species Is this a current diagnosis for this admission?: Yes (6) Alcohol withdrawal syndrome Qualifiers: Complication of substance-induced condition: with delirium Qualified Code(s): F10.231 - Alcohol dependence with withdrawal delirium Is this a current diagnosis for this admission?: Yes
[2019-04-02] MEDS: INSULIN REG, HUMAN 100 UNIT/ML 3 ML VIAL (PYX) SUBCUT SCH ×5 (01:20→23:22)
[2019-04-02] MEDS: LORAZEPAM INJ 2 MG/1 ML VIAL IV PRN (03:10)
[2019-04-02] MEDS: LORAZEPAM 1 MG TABLET PO PRN ×2 (09:36→17:55)
[2019-04-02] MEDS: THIAMINE HCL 100 MG TABLET PO SCH (09:36)
[2019-04-02] MEDS: INSULIN GLARGINE,HUM.REC.ANLOG 1,000 UNIT/10 ML VIAL SUBCUT SCH (09:38)
--- NOTE | 2019-04-02 09:55 | PDOC PROGRESS REPORT ---
Subjective Progress Note for:: 04/02/19 Subjective:: Patient is currently doing fair Patient was admitted for the alcoholism's in the intensive care unit for the sepsis Currently doing well still little agitated and required PRN Ativan Reason For Visit: METABOLIC ACIDOSIS,AMS Physical Exam Vital Signs: Temp Pulse Resp BP Pulse Ox 97.4 F 83 18 110/62 100 04/02/19 07:41 04/02/19 07:41 04/02/19 07:41 04/02/19 07:41 04/02/19 07:41 Intake & Output 04/01/19 04/02/19 04/03/19 06:59 06:59 06:59 Intake Total 550 780 Balance 550 780 Weight 69.7 kg 70.2 kg General appearance: PRESENT: no acute distress, well-developed, well-nourished Head exam: PRESENT: atraumatic, normocephalic Eye exam: PRESENT: conjunctiva pink, EOMI, PERRLA. ABSENT: scleral icterus Ear exam: PRESENT: normal external ear exam Mouth exam: PRESENT: moist, tongue midline Neck exam: PRESENT: full ROM. ABSENT: carotid bruit, JVD, lymphadenopathy, thyromegaly Respiratory exam: PRESENT: clear to auscultation jennifer Cardiovascular exam: PRESENT: RRR. ABSENT: diastolic murmur, rubs, systolic murmur Pulses: PRESENT: normal dorsalis pedis pul, +2 pedal pulses bilateral Vascular exam: PRESENT: normal capillary refill GI/Abdominal exam: PRESENT: normal bowel sounds, soft. ABSENT: distended, guarding, mass, organolmegaly, rebound, tenderness Rectal exam: PRESENT: deferred Neurological exam: PRESENT: alert, awake, oriented to person. ABSENT: motor sensory deficit Psychiatric exam: PRESENT: appropriate affect, normal mood. ABSENT: homicidal ideation, suicidal ideation Skin exam: PRESENT: dry, intact, warm. ABSENT: cyanosis, rash Results Laboratory Results: 03/29/19 04:53 03/29/19 04:53 03/20/19 03/20/19 03/25/19 23:20 23:20 11:10 Creatine Kinase 248 H 76 CK-MB (CK-2) Troponin I 0.016 03/25/19 11:10 Creatine Kinase CK-MB (CK-2) 0.44 Troponin I < 0.012 Impressions: Chest X-Ray 03/20/19 00:00 IMPRESSION: Clear lungs. Head CT 03/20/19 23:42 IMPRESSION: Mild atrophy and chronic small vessel ischemic changes with no acute intracranial abnormality. Assessment & Plan - Diagnosis (1) Alcohol abuse Is this a current diagnosis for this admission?: Yes (2) Alcohol withdrawal syndrome Qualifiers: Complication of substance-induced condition: with delirium Qualified Code(s): F10.231 - Alcohol dependence with withdrawal delirium Is this a current diagnosis for this admission?: Yes (3) Alcoholic liver disease Is this a current diagnosis for this admission?: Yes (4) DM (diabetes mellitus), secondary Is this a current diagnosis for this admission?: Yes - Time Time Spent with patient: 15-24 minutes Medications reviewed and adjusted accordingly: Yes Anticipated discharge: SNF Within: Other - Plan Summary Plan Summary: Will use the PRN Ativan
[2019-04-03] MEDS: LORAZEPAM 1 MG TABLET PO PRN ×2 (03:01→13:14)
[2019-04-03] MEDS: INSULIN REG, HUMAN 100 UNIT/ML 3 ML VIAL (PYX) SUBCUT SCH ×4 (08:11→23:50)
--- NOTE | 2019-04-03 09:43 | PDOC PROGRESS REPORT ---
Subjective Progress Note for:: 04/03/19 Subjective:: Patient is currently doing fair Patient was admitted for the alcoholism's in the intensive care unit for the sepsis Currently doing well still little agitated and required PRN Ativan Reason For Visit: METABOLIC ACIDOSIS,AMS Physical Exam Vital Signs: Temp Pulse Resp BP Pulse Ox 98.0 F 84 18 133/79 H 99 04/03/19 08:05 04/03/19 08:05 04/03/19 08:05 04/03/19 08:05 04/03/19 08:05 Intake & Output 04/02/19 04/03/19 04/04/19 06:59 06:59 06:59 Intake Total 780 860 Output Total 700 Balance 780 160 Weight 70.2 kg 69.6 kg General appearance: PRESENT: no acute distress, well-developed, well-nourished Head exam: PRESENT: atraumatic, normocephalic Eye exam: PRESENT: conjunctiva pink, EOMI, PERRLA. ABSENT: scleral icterus Ear exam: PRESENT: normal external ear exam Mouth exam: PRESENT: moist, tongue midline Neck exam: PRESENT: full ROM. ABSENT: carotid bruit, JVD, lymphadenopathy, thyromegaly Cardiovascular exam: PRESENT: RRR. ABSENT: diastolic murmur, rubs, systolic murmur Pulses: PRESENT: normal dorsalis pedis pul, +2 pedal pulses bilateral Vascular exam: PRESENT: normal capillary refill GI/Abdominal exam: PRESENT: normal bowel sounds, soft. ABSENT: distended, guarding, mass, organolmegaly, rebound, tenderness Rectal exam: PRESENT: deferred Neurological exam: PRESENT: alert, awake, oriented to person, oriented to place. ABSENT: motor sensory deficit Psychiatric exam: PRESENT: appropriate affect, normal mood. ABSENT: homicidal ideation, suicidal ideation Skin exam: PRESENT: dry, intact, warm. ABSENT: cyanosis, rash Results Laboratory Results: 03/29/19 04:53 03/29/19 04:53 03/20/19 03/20/19 03/25/19 23:20 23:20 11:10 Creatine Kinase 248 H 76 CK-MB (CK-2) Troponin I 0.016 03/25/19 11:10 Creatine Kinase CK-MB (CK-2) 0.44 Troponin I < 0.012 Impressions: Chest X-Ray 03/20/19 00:00 IMPRESSION: Clear lungs. Head CT 03/20/19 23:42 IMPRESSION: Mild atrophy and chronic small vessel ischemic changes with no acute intracranial abnormality. Assessment & Plan - Diagnosis (1) Alcohol abuse Is this a current diagnosis for this admission?: Yes (2) Alcohol withdrawal syndrome Qualifiers: Complication of substance-induced condition: with delirium Qualified Code(s): F10.231 - Alcohol dependence with withdrawal delirium Is this a current diagnosis for this admission?: Yes (3) Alcoholic liver disease Is this a current diagnosis for this admission?: Yes (4) DM (diabetes mellitus), secondary Is this a current diagnosis for this admission?: Yes - Time Time Spent with patient: 15-24 minutes Medications reviewed and adjusted accordingly: Yes Anticipated discharge: SNF Within: Other - Plan Summary Plan Summary: Patient is currently doing fair waiting for the rehab placements
[2019-04-03] MEDS: INSULIN GLARGINE,HUM.REC.ANLOG 1,000 UNIT/10 ML VIAL SUBCUT SCH (09:51)
[2019-04-03] MEDS: THIAMINE HCL 100 MG TABLET PO SCH (13:13)
[2019-04-03] MEDS ORDERED: LORAZEPAM INJ 2 MG/1 ML VIAL IM ONE (23:45)
[2019-04-04] MEDS: LORAZEPAM 1 MG TABLET PO PRN ×3 (02:25→17:44)
[2019-04-04] MEDS: INSULIN REG, HUMAN 100 UNIT/ML 3 ML VIAL (PYX) SUBCUT SCH ×4 (08:14→21:24)
[2019-04-04] MEDS: THIAMINE HCL 100 MG TABLET PO SCH (10:34)
[2019-04-04] MEDS: INSULIN GLARGINE,HUM.REC.ANLOG 1,000 UNIT/10 ML VIAL SUBCUT SCH (10:34)
[2019-04-04 18:36] LABS: ABSOLUTE BASOPHILS # (AUTO) 0.1 10^3/uL (0.0-0.2); ABSOLUTE EOSINOPHILS # (AUTO) 0.1 10^3/uL (0.0-0.6); ABSOLUTE LYMPHOCYTES (AUTO) 2.5 10^3/uL (0.5-4.7); ABSOLUTE MONOCYTES (AUTO) 0.6 10^3/uL (0.1-1.4); ABSOLUTE NEUT (AUTO) 5.1 10^3/uL (1.7-8.2); BASOPHILS % (AUTO) 0.7 % (0-2); EOSINOPHILS % (AUTO) 1.1 % (0-6); HEMATOCRIT 32.6 % (37.9-51.0); HEMOGLOBIN 11.1 g/dL (13.5-17.0); LYMPHOCYTES % (AUTO) 30.1 % (13-45); MEAN CORPUSCULAR HEMOGLOBIN 35.7 pg (27.0-33.4); MEAN CORPUSCULAR VOLUME 105 fl (80-97); MONOCYTES % (AUTO) 6.9 % (3-13); PLATELET COUNT 148 10^3/uL (150-450); SEGMENTED NEUTROPHILS % (AUTO) 61.2 % (42-78); TOTAL CELLS COUNTED % (AUTO) 100 %; WHITE BLOOD COUNT 8.4 10^3/uL (4.0-10.5)
[2019-04-04 18:51] LABS: ALBUMIN 3.8 g/dL (3.5-5.0); ALKALINE PHOSPHATASE 149 U/L (38-126); ANION GAP 10 (5-19); ASPARTATE AMINO TRANSFERASE 86 U/L (17-59); BILIRUBIN,DIRECT 0.5 mg/dL (0.0-0.4); BILIRUBIN,TOTAL 1.2 mg/dL (0.2-1.3); BLOOD UREA NITROGEN 14 mg/dL (7-20); CALCIUM 9.2 mg/dL (8.4-10.2); CARBON DIOXIDE 30 mmol/L (22-30); CHLORIDE 98 mmol/L (98-107); GLUCOSE 193 mg/dL (75-110); POTASSIUM 4.7 mmol/L (3.6-5.0); TOTAL PROTEIN 9.2 g/dL (6.3-8.2)
--- NOTE | 2019-04-04 21:48 | PDOC PROGRESS REPORT ---
Subjective Progress Note for:: 04/04/19 Subjective:: Patient seen by the bedside,continues to require ativan Reason For Visit: METABOLIC ACIDOSIS,AMS Physical Exam Vital Signs: Temp Pulse Resp BP Pulse Ox 97.9 F 119 H 16 96/71 L 100 04/04/19 15:30 04/04/19 19:00 04/04/19 15:30 04/04/19 15:30 04/04/19 15:30 Intake & Output 04/03/19 04/04/19 04/05/19 06:59 06:59 06:59 Intake Total 860 780 940 Output Total 700 200 Balance 160 780 740 Weight 69.6 kg 70.6 kg General appearance: PRESENT: no acute distress Eye exam: PRESENT: PERRLA Respiratory exam: PRESENT: clear to auscultation jennifer Cardiovascular exam: PRESENT: +S1, +S2 GI/Abdominal exam: PRESENT: soft Neurological exam: PRESENT: alert Results Laboratory Results: 04/04/19 18:16 04/04/19 18:16 04/04/19 04/04/19 18:16 18:16 WBC 8.4 RBC 3.10 L Hgb 11.1 L Hct 32.6 L MCV 105 H MCH 35.7 H MCHC 34.0 RDW 14.0 Plt Count 148 L Seg Neutrophils % 61.2 Sodium 137.5 Potassium 4.7 Chloride 98 Carbon Dioxide 30 Anion Gap 10 BUN 14 Creatinine 0.99 Est GFR ( Amer) > 60 Glucose 193 H Calcium 9.2 Total Bilirubin 1.2 AST 86 H Alkaline Phosphatase 149 H Total Protein 9.2 H Albumin 3.8 03/20/19 03/20/19 03/25/19 23:20 23:20 11:10 Creatine Kinase 248 H 76 CK-MB (CK-2) Troponin I 0.016 03/25/19 11:10 Creatine Kinase CK-MB (CK-2) 0.44 Troponin I < 0.012 Impressions: Chest X-Ray 03/20/19 00:00 IMPRESSION: Clear lungs. Head CT 03/20/19 23:42 IMPRESSION: Mild atrophy and chronic small vessel ischemic changes with no acute intracranial abnormality. Assessment & Plan - Diagnosis (1) Sepsis Qualifiers: Sepsis type: sepsis due to unspecified organism Sepsis acute organ dysfunction status: unspecified Qualified Code(s): A41.9 - Sepsis, unspecified organism Is this a current diagnosis for this admission?: Yes Plan: Continue IV antibiotic (2) Alcohol abuse Is this a current diagnosis for this admission?: Yes (3) T2DM (type 2 diabetes mellitus) Is this a current diagnosis for this admission?: Yes (4) Urinary tract infection due to Enterococcus Is this a current diagnosis for this admission?: Yes (5) Infection due to Enterobacter species Is this a current diagnosis for this admission?: Yes (6) Alcohol withdrawal syndrome Qualifiers: Complication of substance-induced condition: with delirium Qualified Code(s): F10.231 - Alcohol dependence with withdrawal delirium Is this a current diagnosis for this admission?: Yes
[2019-04-05] MEDS: LORAZEPAM 1 MG TABLET PO PRN (01:01)
[2019-04-05 05:48] LABS: ABSOLUTE EOSINOPHILS # (AUTO) 0.1 10^3/uL (0.0-0.6); ABSOLUTE LYMPHOCYTES (AUTO) 2.7 10^3/uL (0.5-4.7); ABSOLUTE MONOCYTES (AUTO) 0.5 10^3/uL (0.1-1.4); ABSOLUTE NEUT (AUTO) 4.2 10^3/uL (1.7-8.2); BASOPHILS % (AUTO) 0.6 % (0-2); HEMOGLOBIN 9.9 g/dL (13.5-17.0); LYMPHOCYTES % (AUTO) 35.7 % (13-45); MEAN CORPUSCULAR HEMOGLOBIN 35.2 pg (27.0-33.4); MEAN CORPUSCULAR VOLUME 104 fl (80-97); MONOCYTES % (AUTO) 7.2 % (3-13); PLATELET COUNT 133 10^3/uL (150-450); SEGMENTED NEUTROPHILS % (AUTO) 55.5 % (42-78); TOTAL CELLS COUNTED % (AUTO) 100 %; WHITE BLOOD COUNT 7.5 10^3/uL (4.0-10.5)
[2019-04-05 06:03] LABS: ALBUMIN 3.1 g/dL (3.5-5.0); ALKALINE PHOSPHATASE 150 U/L (38-126); ANION GAP 7 (5-19); ASPARTATE AMINO TRANSFERASE 69 U/L (17-59); BILIRUBIN,DIRECT 0.3 mg/dL (0.0-0.4); BILIRUBIN,TOTAL 0.9 mg/dL (0.2-1.3); BLOOD UREA NITROGEN 17 mg/dL (7-20); CALCIUM 8.8 mg/dL (8.4-10.2); CARBON DIOXIDE 27 mmol/L (22-30); CHLORIDE 103 mmol/L (98-107); GLUCOSE 134 mg/dL (75-110); POTASSIUM 4.3 mmol/L (3.6-5.0); TOTAL PROTEIN 7.9 g/dL (6.3-8.2)
[2019-04-05] MEDS: INSULIN REG, HUMAN 100 UNIT/ML 3 ML VIAL (PYX) SUBCUT SCH ×4 (08:25→22:33)
[2019-04-05] MEDS: THIAMINE HCL 100 MG TABLET PO SCH (09:36)
[2019-04-05] MEDS: INSULIN GLARGINE,HUM.REC.ANLOG 1,000 UNIT/10 ML VIAL SUBCUT SCH (09:37)
--- NOTE | 2019-04-05 20:49 | PDOC PROGRESS REPORT ---
Subjective Progress Note for:: 04/05/19 Subjective:: Patient seen by the bedside, still confused, complaining of right knee pain Reason For Visit: METABOLIC ACIDOSIS,AMS Physical Exam Vital Signs: Temp Pulse Resp BP Pulse Ox 97.7 F 85 20 115/67 90 L 04/05/19 19:46 04/05/19 19:46 04/05/19 19:46 04/05/19 19:46 04/05/19 19:46 Intake & Output 04/04/19 04/05/19 04/06/19 06:59 06:59 06:59 Intake Total 780 940 980 Output Total 425 525 Balance 780 515 455 Weight 70.6 kg 69.2 kg General appearance: PRESENT: no acute distress Eye exam: PRESENT: PERRLA Respiratory exam: PRESENT: clear to auscultation jennifer Cardiovascular exam: PRESENT: +S1, +S2 GI/Abdominal exam: PRESENT: soft Neurological exam: PRESENT: alert Results Laboratory Results: 04/05/19 04:50 04/05/19 04:50 04/05/19 04/05/19 04:50 04:50 WBC 7.5 RBC 2.80 L Hgb 9.9 L Hct 29.0 L MCV 104 H MCH 35.2 H MCHC 34.0 RDW 14.0 Plt Count 133 L Seg Neutrophils % 55.5 Sodium 136.8 L Potassium 4.3 Chloride 103 Carbon Dioxide 27 Anion Gap 7 BUN 17 Creatinine 0.89 Est GFR ( Amer) > 60 Glucose 134 H Calcium 8.8 Total Bilirubin 0.9 AST 69 H Alkaline Phosphatase 150 H Total Protein 7.9 Albumin 3.1 L 03/20/19 03/20/19 03/25/19 23:20 23:20 11:10 Creatine Kinase 248 H 76 CK-MB (CK-2) Troponin I 0.016 03/25/19 11:10 Creatine Kinase CK-MB (CK-2) 0.44 Troponin I < 0.012 Impressions: Chest X-Ray 03/20/19 00:00 IMPRESSION: Clear lungs. Head CT 03/20/19 23:42 IMPRESSION: Mild atrophy and chronic small vessel ischemic changes with no acute intracranial abnormality. Assessment & Plan - Diagnosis (1) Sepsis Qualifiers: Sepsis type: sepsis due to unspecified organism Sepsis acute organ dysfunction status: unspecified Qualified Code(s): A41.9 - Sepsis, unspecified organism Is this a current diagnosis for this admission?: Yes (2) Alcohol abuse Is this a current diagnosis for this admission?: Yes (3) T2DM (type 2 diabetes mellitus) Is this a current diagnosis for this admission?: Yes (4) Urinary tract infection due to Enterococcus Is this a current diagnosis for this admission?: Yes (5) Infection due to Enterobacter species Is this a current diagnosis for this admission?: Yes (6) Alcohol withdrawal syndrome Qualifiers: Complication of substance-induced condition: with delirium Qualified Code(s): F10.231 - Alcohol dependence with withdrawal delirium Is this a current diagnosis for this admission?: Yes
[2019-04-06] MEDS: INSULIN REG, HUMAN 100 UNIT/ML 3 ML VIAL (PYX) SUBCUT SCH ×4 (08:03→21:36)
[2019-04-06] MEDS: LORAZEPAM 1 MG TABLET PO PRN ×2 (10:04→15:08)
[2019-04-06] MEDS: THIAMINE HCL 100 MG TABLET PO SCH (10:04)
[2019-04-06] MEDS: INSULIN GLARGINE,HUM.REC.ANLOG 1,000 UNIT/10 ML VIAL SUBCUT SCH (10:05)
[2019-04-06] MEDS ORDERED: ETHYL CHLORIDE SPRAY 103.5 ML/BOTTLE TP PRN (14:31)
[2019-04-06] MEDS ORDERED: LIDOCAINE 1% INJ (10 MG/ML) 10 ML MDV INJ PRN (14:31)
[2019-04-06] MEDS ORDERED: METHYLPREDNISOLONE ACETATE INJ 80 MG/1 ML VIAL IM PRN (15:01)
--- NOTE | 2019-04-06 16:02 | PDOC PROGRESS REPORT ---
Subjective Progress Note for:: 04/06/19 Subjective:: Patient seen by the bedside, is alert oriented, he complain of pain of the right knee, disposition is an issue for this patient Reason For Visit: METABOLIC ACIDOSIS,AMS Physical Exam Vital Signs: Temp Pulse Resp BP Pulse Ox 98.0 F 75 18 102/69 98 04/06/19 11:32 04/06/19 14:00 04/06/19 11:32 04/06/19 11:32 04/06/19 11:32 Intake & Output 04/05/19 04/06/19 04/07/19 06:59 06:59 06:59 Intake Total 940 1220 Output Total 425 1225 Balance 515 -5 Weight 69.2 kg 69.9 kg General appearance: PRESENT: no acute distress Eye exam: PRESENT: PERRLA Respiratory exam: PRESENT: clear to auscultation jennifer Cardiovascular exam: PRESENT: +S1, +S2 GI/Abdominal exam: PRESENT: soft Musculoskeletal exam: PRESENT: other - Arthropathy of the right knee Neurological exam: PRESENT: alert Results Laboratory Results: 04/05/19 04:50 04/05/19 04:50 03/20/19 03/20/19 03/25/19 23:20 23:20 11:10 Creatine Kinase 248 H 76 CK-MB (CK-2) Troponin I 0.016 03/25/19 11:10 Creatine Kinase CK-MB (CK-2) 0.44 Troponin I < 0.012 Impressions: Chest X-Ray 03/20/19 00:00 IMPRESSION: Clear lungs. Head CT 03/20/19 23:42 IMPRESSION: Mild atrophy and chronic small vessel ischemic changes with no acute intracranial abnormality. Assessment & Plan - Diagnosis (1) Sepsis Qualifiers: Sepsis type: sepsis due to unspecified organism Sepsis acute organ dysfunction status: unspecified Qualified Code(s): A41.9 - Sepsis, unspecified organism Is this a current diagnosis for this admission?: Yes (2) Alcohol abuse Is this a current diagnosis for this admission?: Yes (3) T2DM (type 2 diabetes mellitus) Is this a current diagnosis for this admission?: Yes (4) Urinary tract infection due to Enterococcus Is this a current diagnosis for this admission?: Yes (5) Infection due to Enterobacter species Is this a current diagnosis for this admission?: Yes (6) Alcohol withdrawal syndrome Qualifiers: Complication of substance-induced condition: with delirium Qualified Code(s): F10.231 - Alcohol dependence with withdrawal delirium Is this a current diagnosis for this admission?: Yes (7) Arthropathy of right knee Is this a current diagnosis for this admission?: Yes Plan: Patient was given Depo-Medrol in the right knee today Bedside Procedure - History of Present Illness Indication for Procedure: Unilateral primary osteoarthritis of right knee with pain Surgeon: YASSINE JOSEPH - Joint Aspiration Right Knee Consent obtained: Yes Joint aspiration pre-procedure: Chloraprep applied Anesthetic type: 1% Lidocaine - 80 mg of depo medrol mixed with 5 c co0f lidocaine ,skin was sprayed with ethyl chloride Needle size: 20 Complications: No
[2019-04-07] MEDS: LORAZEPAM 1 MG TABLET PO PRN ×3 (04:06→21:08)
[2019-04-07] MEDS: INSULIN REG, HUMAN 100 UNIT/ML 3 ML VIAL (PYX) SUBCUT SCH ×4 (08:18→21:08)
[2019-04-07] MEDS: THIAMINE HCL 100 MG TABLET PO SCH (09:33)
[2019-04-07] MEDS: INSULIN GLARGINE,HUM.REC.ANLOG 1,000 UNIT/10 ML VIAL SUBCUT SCH (09:33)
--- NOTE | 2019-04-07 21:18 | PDOC PROGRESS REPORT ---
Subjective Progress Note for:: 04/07/19 Subjective:: Patient seen by the bedside Reason For Visit: METABOLIC ACIDOSIS,AMS Physical Exam Vital Signs: Temp Pulse Resp BP Pulse Ox 98.0 F 89 16 121/80 100 04/07/19 16:10 04/07/19 19:00 04/07/19 16:10 04/07/19 16:10 04/07/19 16:10 Intake & Output 04/06/19 04/07/19 04/08/19 06:59 06:59 06:59 Intake Total 9580 119 4866 Output Total 1225 325 400 Balance -5 645 680 Weight 69.9 kg 69.8 kg General appearance: PRESENT: no acute distress Eye exam: PRESENT: PERRLA Respiratory exam: PRESENT: clear to auscultation jennifer Cardiovascular exam: PRESENT: +S1, +S2 GI/Abdominal exam: PRESENT: soft Neurological exam: PRESENT: alert, CN II-XII grossly intact Results Laboratory Results: 04/05/19 04:50 04/05/19 04:50 03/20/19 03/20/19 03/25/19 23:20 23:20 11:10 Creatine Kinase 248 H 76 CK-MB (CK-2) Troponin I 0.016 03/25/19 11:10 Creatine Kinase CK-MB (CK-2) 0.44 Troponin I < 0.012 Impressions: Chest X-Ray 03/20/19 00:00 IMPRESSION: Clear lungs. Head CT 03/20/19 23:42 IMPRESSION: Mild atrophy and chronic small vessel ischemic changes with no acute intracranial abnormality. Assessment & Plan - Diagnosis (1) Sepsis Qualifiers: Sepsis type: sepsis due to unspecified organism Sepsis acute organ dysfunction status: unspecified Qualified Code(s): A41.9 - Sepsis, unspecified organism Is this a current diagnosis for this admission?: Yes (2) Alcohol abuse Is this a current diagnosis for this admission?: Yes (3) T2DM (type 2 diabetes mellitus) Is this a current diagnosis for this admission?: Yes (4) Urinary tract infection due to Enterococcus Is this a current diagnosis for this admission?: Yes (5) Infection due to Enterobacter species Is this a current diagnosis for this admission?: Yes (6) Alcohol withdrawal syndrome Qualifiers: Complication of substance-induced condition: with delirium Qualified Code(s): F10.231 - Alcohol dependence with withdrawal delirium Is this a current diagnosis for this admission?: Yes (7) Arthropathy of right knee Is this a current diagnosis for this admission?: Yes
[2019-04-08] MEDS ORDERED: LORAZEPAM INJ 2 MG/1 ML VIAL ONE (04:21)
[2019-04-08] MEDS ORDERED: LORAZEPAM INJ 2 MG/1 ML VIAL IM ONE (04:30)
[2019-04-08] MEDS: INSULIN REG, HUMAN 100 UNIT/ML 3 ML VIAL (PYX) SUBCUT SCH ×4 (09:36→21:52)
[2019-04-08] MEDS: INSULIN GLARGINE,HUM.REC.ANLOG 1,000 UNIT/10 ML VIAL SUBCUT SCH (09:37)
[2019-04-08] MEDS: THIAMINE HCL 100 MG TABLET PO SCH (09:37)
--- NOTE | 2019-04-08 22:01 | PDOC PROGRESS REPORT ---
Subjective Progress Note for:: 04/08/19 Subjective:: Patient is medically stable, he has some aggressive behavior, if discharge planning is not able to get placement for patient he probably could be discharged home with family Reason For Visit: METABOLIC ACIDOSIS,AMS Physical Exam Vital Signs: Temp Pulse Resp BP Pulse Ox 97.4 F 70 16 100/66 100 04/08/19 19:32 04/08/19 19:32 04/08/19 19:32 04/08/19 19:32 04/08/19 19:32 Intake & Output 04/07/19 04/08/19 04/09/19 06:59 06:59 06:59 Intake Total 970 1080 480 Output Total 325 400 650 Balance 645 680 -170 Weight 69.8 kg General appearance: PRESENT: no acute distress Eye exam: PRESENT: PERRLA Respiratory exam: PRESENT: clear to auscultation jennifer Cardiovascular exam: PRESENT: +S1, +S2 GI/Abdominal exam: PRESENT: soft Neurological exam: PRESENT: alert, CN II-XII grossly intact Results Laboratory Results: 04/05/19 04:50 04/05/19 04:50 03/20/19 03/20/19 03/25/19 23:20 23:20 11:10 Creatine Kinase 248 H 76 CK-MB (CK-2) Troponin I 0.016 03/25/19 11:10 Creatine Kinase CK-MB (CK-2) 0.44 Troponin I < 0.012 Impressions: Chest X-Ray 03/20/19 00:00 IMPRESSION: Clear lungs. Head CT 03/20/19 23:42 IMPRESSION: Mild atrophy and chronic small vessel ischemic changes with no acute intracranial abnormality. Assessment & Plan - Diagnosis (1) Sepsis Qualifiers: Sepsis type: sepsis due to unspecified organism Sepsis acute organ dysfunction status: unspecified Qualified Code(s): A41.9 - Sepsis, unspecified organism Is this a current diagnosis for this admission?: Yes (2) Alcohol abuse Is this a current diagnosis for this admission?: Yes (3) T2DM (type 2 diabetes mellitus) Is this a current diagnosis for this admission?: Yes (4) Urinary tract infection due to Enterococcus Is this a current diagnosis for this admission?: Yes (5) Infection due to Enterobacter species Is this a current diagnosis for this admission?: Yes (6) Alcohol withdrawal syndrome Qualifiers: Complication of substance-induced condition: with delirium Qualified Code(s): F10.231 - Alcohol dependence with withdrawal delirium Is this a current diagnosis for this admission?: Yes (7) Arthropathy of right knee Is this a current diagnosis for this admission?: Yes
[2019-04-08 22:39] LABS: ABSOLUTE LYMPHOCYTES (AUTO) 2.5 10^3/uL (0.5-4.7); ABSOLUTE MONOCYTES (AUTO) 0.9 10^3/uL (0.1-1.4); ABSOLUTE NEUT (AUTO) 7.8 10^3/uL (1.7-8.2); BASOPHILS % (AUTO) 0.3 % (0-2); EOSINOPHILS % (AUTO) 0.1 % (0-6); HEMATOCRIT 31.4 % (37.9-51.0); HEMOGLOBIN 10.5 g/dL (13.5-17.0); LYMPHOCYTES % (AUTO) 22.2 % (13-45); MEAN CORPUSCULAR HEMOGLOBIN 34.7 pg (27.0-33.4); MEAN CORPUSCULAR HGB CONC 33.4 g/dL (32.0-36.0); MEAN CORPUSCULAR VOLUME 104 fl (80-97); MONOCYTES % (AUTO) 7.8 % (3-13); PLATELET COUNT 157 10^3/uL (150-450); RED BLOOD COUNT 3.02 10^6/uL (4.35-5.55); SEGMENTED NEUTROPHILS % (AUTO) 69.6 % (42-78); TOTAL CELLS COUNTED % (AUTO) 100 %; WHITE BLOOD COUNT 11.2 10^3/uL (4.0-10.5)
[2019-04-08 22:58] LABS: ALBUMIN 3.5 g/dL (3.5-5.0); ALKALINE PHOSPHATASE 110 U/L (38-126); ANION GAP 11 (5-19); ASPARTATE AMINO TRANSFERASE 68 U/L (17-59); BILIRUBIN,DIRECT 0.4 mg/dL (0.0-0.4); BILIRUBIN,TOTAL 0.8 mg/dL (0.2-1.3); BLOOD UREA NITROGEN 27 mg/dL (7-20); CARBON DIOXIDE 26 mmol/L (22-30); CHLORIDE 101 mmol/L (98-107); GLUCOSE 116 mg/dL (75-110); POTASSIUM 4.1 mmol/L (3.6-5.0); TOTAL PROTEIN 8.4 g/dL (6.3-8.2)
[2019-04-09 05:11] LABS: ABSOLUTE LYMPHOCYTES (AUTO) 2.7 10^3/uL (0.5-4.7); ABSOLUTE MONOCYTES (AUTO) 0.7 10^3/uL (0.1-1.4); ABSOLUTE NEUT (AUTO) 5.9 10^3/uL (1.7-8.2); BASOPHILS % (AUTO) 0.3 % (0-2); EOSINOPHILS % (AUTO) 0.2 % (0-6); HEMATOCRIT 30.3 % (37.9-51.0); HEMOGLOBIN 10.3 g/dL (13.5-17.0); LYMPHOCYTES % (AUTO) 28.7 % (13-45); MEAN CORPUSCULAR HEMOGLOBIN 35.1 pg (27.0-33.4); MEAN CORPUSCULAR HGB CONC 34.1 g/dL (32.0-36.0); MEAN CORPUSCULAR VOLUME 103 fl (80-97); MONOCYTES % (AUTO) 7.5 % (3-13); PLATELET COUNT 150 10^3/uL (150-450); RED BLOOD COUNT 2.94 10^6/uL (4.35-5.55); SEGMENTED NEUTROPHILS % (AUTO) 63.3 % (42-78); TOTAL CELLS COUNTED % (AUTO) 100 %; WHITE BLOOD COUNT 9.4 10^3/uL (4.0-10.5)
[2019-04-09 05:35] LABS: ALBUMIN 3.3 g/dL (3.5-5.0); ALKALINE PHOSPHATASE 121 U/L (38-126); ANION GAP 8 (5-19); ASPARTATE AMINO TRANSFERASE 71 U/L (17-59); BILIRUBIN,DIRECT 0.4 mg/dL (0.0-0.4); BILIRUBIN,TOTAL 0.7 mg/dL (0.2-1.3); BLOOD UREA NITROGEN 25 mg/dL (7-20); CARBON DIOXIDE 26 mmol/L (22-30); CHLORIDE 104 mmol/L (98-107); GLUCOSE 126 mg/dL (75-110); POTASSIUM 4.2 mmol/L (3.6-5.0); TOTAL PROTEIN 8.1 g/dL (6.3-8.2)
[2019-04-09] MEDS: INSULIN REG, HUMAN 100 UNIT/ML 3 ML VIAL (PYX) SUBCUT SCH ×2 (08:25→12:38)
[2019-04-09] MEDS: INSULIN GLARGINE,HUM.REC.ANLOG 1,000 UNIT/10 ML VIAL SUBCUT SCH (10:02)
[2019-04-09] MEDS: THIAMINE HCL 100 MG TABLET PO SCH (10:02)
--- NOTE | 2019-04-09 12:05 | PDOC DISCHARGE SUMMARY ---
Impression - Admit/DC Date/PCP Admission Date/Primary Care Provider: 03/21/19 02:07 YASSINE JOSEPH MD Discharge Date: 04/09/19 - Discharge Diagnosis (1) Sepsis Is this a current diagnosis for this admission?: Yes (2) Alcohol abuse Is this a current diagnosis for this admission?: Yes (3) T2DM (type 2 diabetes mellitus) Is this a current diagnosis for this admission?: Yes (4) Urinary tract infection due to Enterococcus Is this a current diagnosis for this admission?: Yes (5) Infection due to Enterobacter species Is this a current diagnosis for this admission?: Yes (6) Alcohol withdrawal syndrome Is this a current diagnosis for this admission?: Yes - Additional Information Referrals: YASSINE JOSEPH MD [Primary Care Provider] - 04/14/19 10:30 am Prescriptions: Mag Hydrox/Al Hydrox/Simeth [Maalox Plus Susp 30 Udcup] 30 ml PO Q8HP PRN #240 udc PRN Reason: Insulin Detemir [Levemir] 15 unit SQ DAILY #3 vial Thiamine HCl [Thiamine 100 mg Tablet] 100 mg PO DAILY #90 tablet Home Medications: Insulin Detemir [Levemir] 15 unit SQ DAILY #3 vial 04/09/19 Mag Hydrox/Al Hydrox/Simeth [Maalox Plus Susp 30 Udcup] 30 ml PO Q8HP PRN #240 udc 04/09/19 Thiamine HCl [Thiamine 100 mg Tablet] 100 mg PO DAILY #90 tablet 04/09/19 History of Present Illiness History of Present Illness: LOI RUVALCABA is a 63 year old male, He has a history of alcohol abuse extremely noncompliant, alcohol-related diabetes mellitus, he came to the emergency room for evaluation of altered mental status, vomiting, in the emergency room he did not volunteer much history, he was found to be very acidotic, he has elevated serum lactic acid, the serum glucose was also e levated, he was not in DKA. Because of the acidosis he was started on bicarbonate infusion.When I saw patient on the floor he was more concerned about his knees, he has arthropathy.He was also found to be hypothermic with tachycardia, the urine culture is growing gram-negative rods, chest x-ray is clear, History taking is a challenge,Patient is an alcoholic, he is probably immunocompromised because of alcohol abuse history the potential source of sepsis is not apparent at this time, he is presently pancultured will be empirically treated with IV antibiotic Hospital Course Hospital Course: Patient was admitted for the management of, sepsis due to Enterobacter and enterococcus UTI, He has underlining chronic alcoholism and alcohol-related diabetes mellitus. He developed alcohol-related withdrawal syndrome in the hospital requiring Lorazepam, physical restraint for a very prolonged period of time in the hospital.He was treated with IV antibiotic for the uropathogens, Enterobacter, the Enterobacter colony count was significant, more than 100,000, all like the enterococcus colony count, the count was not significant, this suggests colonization rather than true infection.He has osteoarthritis of the knees, he complains of pain of the right knee, he also gave the impression that part of the reason for drinking alcohol is to control pain of his right knee.He was giving glucocorticoid injection with lidocaine into his right knee with significant improvement of the arthropathy pain.Disposition has been a problem for this patient, there was issue of that patient cannot take care of himself or that there was no body at home to take care of him. Patient is very lucid in the last few days he was oriented to time place and person, I again asked him today about the ability and capacity to take care of himself. Patient was willing and ready to be discharged home, he said he has his nephew that can also be of help in case he needs one. Patient has been ready for discharge the last 7 days, we have been waiting on discharge planners to find placement for him but this seems to be very difficult for this patient partly because of history of alcoholism.At this point he has optimized and maximized hospital care, there is no more indication for continued inpatient care he be discharged home today he will follow with me in the office Physical Exam Vital Signs: Temp Pulse Resp BP Pulse Ox 98.4 F 68 18 103/66 97 04/09/19 03:40 04/09/19 06:44 04/09/19 03:40 04/09/19 03:40 04/09/19 03:40 Intake & Output 04/08/19 04/09/19 04/10/19 06:59 06:59 06:59 Intake Total 1080 480 Output Total 400 1175 Balance 680 -695 Weight 68.3 kg General appearance: PRESENT: no acute distress Eye exam: PRESENT: PERRLA Respiratory exam: PRESENT: clear to auscultation jennifer Cardiovascular exam: PRESENT: +S1, +S2 GI/Abdominal exam: PRESENT: soft Neurological exam: PRESENT: alert, oriented to person, oriented to place, oriented to time, CN II-XII grossly intact Results Laboratory Results: WBC 9.4 10^3/uL (4.0-10.5) 04/09/19 04:35 RBC 2.94 10^6/uL (4.35-5.55) L 04/09/19 04:35 Hgb 10.3 g/dL (13.5-17.0) L 04/09/19 04:35 Hct 30.3 % (37.9-51.0) L 04/09/19 04:35 MCV 103 fl (80-97) H 04/09/19 04:35 MCH 35.1 pg (27.0-33.4) H 04/09/19 04:35 MCHC 34.1 g/dL (32.0-36.0) 04/09/19 04:35 RDW 14.0 % (11.5-14.0) 04/09/19 04:35 Plt Count 150 10^3/uL (150-450) 04/09/19 04:35 Lymph % (Auto) 28.7 % (13-45) 04/09/19 04:35 [place] % (Auto) 7.5 % (3-13) 04/09/19 04:35 Eos % (Auto) 0.2 % (0-6) 04/09/19 04:35 Baso % (Auto) 0.3 % (0-2) 04/09/19 04:35 Absolute Neuts (auto) 5.9 10^3/uL (1.7-8.2) 04/09/19 04:35 Absolute Lymphs (auto) 2.7 10^3/uL (0.5-4.7) 04/09/19 04:35 Absolute Monos (auto) 0.7 10^3/uL (0.1-1.4) 04/09/19 04:35 Absolute Eos (auto) 0.0 10^3/uL (0.0-0.6) 04/09/19 04:35 Absolute Basos (auto) 0.0 10^3/uL (0.0-0.2) 04/09/19 04:35 Total Counted 100 03/29/19 04:53 Seg Neutrophils % 63.3 % (42-78) 04/09/19 04:35 Seg Neuts % (Manual) 62 % (42-78) 03/29/19 04:53 Band Neutrophils % 6 % (3-5) H 03/20/19 23:09 Lymphocytes % (Manual) 28 % (13-45) 03/29/19 04:53 Monocytes % (Manual) 9 % (3-13) 03/29/19 04:53 Eosinophils % (Manual) 1 % (0-6) 03/29/19 04:53 Basophils % (Manual) 0 % (0-2) 03/29/19 04:53 Abs Neuts (Manual) 4.4 10^3/uL (1.7-8.2) 03/29/19 04:53 Abs Lymphs (Manual) 2.0 10^3/uL (0.5-4.7) 03/29/19 04:53 Abs Monocytes (Manual) 0.6 10^3/uL (0.1-1.4) 03/29/19 04:53 Absolute Eos (Manual) 0.1 10^3/uL (0.0-0.6) 03/29/19 04:53 Abs Basophils (Manual) 0.0 10^3/uL (0.0-0.2) 03/29/19 04:53 Platelet Estimate Cancelled 03/22/19 18:01 Platelet Comment DECREASED 03/29/19 04:53 Anisocytosis SLIGHT 03/29/19 04:53 Macrocytosis 2+ 03/29/19 04:53 Tear Drop Cells SLIGHT 03/29/19 04:53 PT 21.7 SEC (11.4-15.4) H 03/20/19 23:20 INR 1.86 03/20/19 23:20 Carbonic Acid 0.97 mmol/L (1.05-1.35) L 03/21/19 09:00 HCO3/H2CO3 Ratio 25:1 03/21/19 09:00 ABG pH 7.50 (7.35-7.45) H 03/21/19 09:00 ABG pCO2 32.1 mmHg (35-45) L 03/21/19 09:00 ABG pO2 80.5 mmHg (80-100) 03/21/19 09:00 ABG HCO3 24.4 mmol/L (20-24) H 03/21/19 09:00 ABG Total CO2 25.3 mmol/L (23-27) 03/21/19 09:00 ABG O2 Saturation 96.8 % (94-98) 03/21/19 09:00 ABG Base Excess 1.5 mmol/L 03/21/19 09:00 VBG pH 6.95 (7.30-7.42) L* 03/20/19 23:20 VBG pCO2 25.5 mmHg (35-63) L 03/20/19 23:20 VBG HCO3 5.5 mmol/L (20-32) L 03/20/19 23:20 VBG Base Excess -25.5 mmol/L 03/20/19 23:20 FiO2 ROOM AIR 03/21/19 09:00 Sodium 138.3 mmol/L (137-145) 04/09/19 04:35 Potassium 4.2 mmol/L (3.6-5.0) 04/09/19 04:35 Chloride 104 mmol/L (98-107) 04/09/19 04:35 Carbon Dioxide 26 mmol/L (22-30) 04/09/19 04:35 Anion Gap 8 (5-19) 04/09/19 04:35 BUN 25 mg/dL (7-20) H 04/09/19 04:35 Creatinine 0.87 mg/dL (0.52-1.25) 04/09/19 04:35 Est GFR ( Amer) > 60 (>60) 04/09/19 04:35 Est GFR (MDRD) Non-Af > 60 (>60) 04/09/19 04:35 Glucose 126 mg/dL (75-110) H 04/09/19 04:35 POC Glucose 156 mg/dL (70-110) H 04/09/19 09:58 Lactic Acid 7.0 mmol/L (0.7-2.1) H 03/21/19 06:19 Calcium 9.0 mg/dL (8.4-10.2) 04/09/19 04:35 Magnesium 1.3 mg/dL (1.6-2.3) L 03/24/19 04:40 Total Bilirubin 0.7 mg/dL (0.2-1.3) 04/09/19 04:35 Direct Bilirubin 0.4 mg/dL (0.0-0.4) 04/09/19 04:35 Neonat Total Bilirubin Not Reportable 04/09/19 04:35 Neonat Direct Bilirubin Not Reportable 04/09/19 04:35 Neonat Indirect Bili Not Reportable 04/09/19 04:35 AST 71 U/L (17-59) H 04/09/19 04:35 ALT 36 U/L (<50) 04/09/19 04:35 Alkaline Phosphatase 121 U/L (38-126) 04/09/19 04:35 Creatine Kinase 76 U/L (55-170) 03/25/19 11:10 CK-MB (CK-2) 0.44 ng/mL (<4.55) 03/25/19 11:10 Troponin I < 0.012 ng/mL 03/25/19 11:10 Total Protein 8.1 g/dL (6.3-8.2) 04/09/19 04:35 Albumin 3.3 g/dL (3.5-5.0) L 04/09/19 04:35 TSH 4.96 uIU/mL (0.47-4.68) H 03/22/19 03:51 Free T4 0.97 ng/dL (0.78-2.19) 03/22/19 03:51 Cortisol AM Sample 19.60 ug/dL (4.46-22.7) 03/22/19 03:51 Urine Color YELLOW 03/20/19 23:22 Urine Appearance SLIGHTLY-CLOUDY 03/20/19 23:22 Urine pH 5.0 (5.0-9.0) 03/20/19 23:22 Ur Specific [place] 1.011 03/20/19 23:22 Urine Protein 100 mg/dL (NEGATIVE) H 03/20/19 23:22 Urine Glucose (UA) NEGATIVE mg/dL (NEGATIVE) 03/20/19 23:22 Urine Ketones 20 mg/dL (NEGATIVE) H 03/20/19 23:22 Urine Blood MODERATE (NEGATIVE) H 03/20/19 23:22 Urine Nitrite NEGATIVE (NEGATIVE) 03/20/19 23:22 Urine Bilirubin NEGATIVE (NEGATIVE) 03/20/19 23:22 Urine Urobilinogen NEGATIVE mg/dL (<2.0) 03/20/19 23:22 Ur Leukocyte Esterase NEGATIVE (NEGATIVE) 03/20/19 23:22 Urine WBC (Auto) 6 /HPF 03/20/19 23:22 Urine RBC (Auto) 4 /HPF 03/20/19 23:22 U Hyaline Cast (Auto) 7 /LPF 03/20/19 23:22 Urine Bacteria (Auto) 1+ /HPF 03/20/19 23:22 Squamous Epi Cells Auto 1 /HPF 03/20/19 23:22 Urine Mucus (Auto) RARE /LPF 03/20/19 23:22 Urine Ascorbic Acid NEGATIVE (NEGATIVE) 03/20/19 23:22 Urine Opiates Screen NEGATIVE 03/20/19 23:22 Urine Methadone Screen NEGATIVE 03/20/19 23:22 Ur Barbiturates Screen NEGATIVE 03/20/19 23:22 Ur Phencyclidine Scrn NEGATIVE 03/20/19 23:22 Ur Amphetamines Screen NEGATIVE 03/20/19 23:22 U Benzodiazepines Scrn NEGATIVE 03/20/19 23:22 Urine Cocaine Screen NEGATIVE 03/20/19 23:22 U Marijuana (THC) Screen NEGATIVE 03/20/19 23:22 Serum Alcohol 19 mg/dL (NONE DETECTED) 03/20/19 23:09 Methyl Alcohol Level Negative % (0.000-0.01) 03/21/19 02:10 Slides for Path Review Cancelled 03/22/19 18:01 03/20/19 03/25/19 23:20 11:10 CK-MB (CK-2) 0.44 Troponin I 0.016 < 0.012 Impressions: Chest X-Ray 03/20/19 00:00 IMPRESSION: Clear lungs. Head CT 03/20/19 23:42 IMPRESSION: Mild atrophy and chronic small vessel ischemic changes with no acute intracranial abnormality. Stroke Is this a Stroke Patient?: No Stroke Pt being discharged on Anti-thrombolytic therapy?: No Reason(s) for not prescribing Anti-thrombolytic therapy:: Not indicated Stroke Pt being discharged on Anti-coagulation therapy?: No Reason(s) for not prescribing Anti-coagulation therapy:: Not indicated Stroke Pt being discharged on Statins?: No Reason(s) for not prescribing Statins therapy:: Not indicated Acute Heart Failure - Is this a Heart Failure Patient?: No Follow-up Appointment scheduled within 7 days?: Yes
[2019-04-09 12:09] VITALS: BP 100/61
== END 2019-04-09 12:50 | disposition home or self-care (01) | DRG 872 ==
LOC: ER 22:56 → EH 03-21 02:07 → ICU 03-21 06:45 → 3S 03-23 01:45 → 3W 03-23 17:59
PROVIDERS: ADMIT Internal Medicine; ATTEND Internal Medicine
PROC: 0S9C3ZZ Drainage of Right Knee Joint, Percutaneous Approach (ICD-10-PCS; principal; 2019-04-06)
DX: A41.9 Sepsis, unspecified organism (principal); N39.0 Urinary tract infection, site not specified; F10.231 Alcohol dependence with withdrawal delirium; K70.9 Alcoholic liver disease, unspecified; I10 Essential (primary) hypertension; E08.69 Diabetes mellitus due to underlying condition with other specified complication; M17.11 Unilateral primary osteoarthritis, right knee; B95.2 Enterococcus as the cause of diseases classified elsewhere; M19.90 Unspecified osteoarthritis, unspecified site; Z79.4 Long term (current) use of insulin; Z91.19 Patient's noncompliance with other medical treatment and regimen; Z78.1 Physical restraint status
CPT/HCPCS: 36415; 51702; 70450; 71045; 80048; 80053; 80307; 81001; 82533; 82550; 82553; 82803; 82962; 83605; 83735; 84439; 84443; 84484; 84600; 85025; 85610; 87040; 87070; 87086; 87088; 87186; 93005; 93010; 96361; 96374; 96375; 99291; A4315; J1040; J1335; J1815; J2060; J2765; J3411; J3475; J3490; J7030; J7050; J7060; J7120

== ENCOUNTER 2019-06-22 23:31 | Emergency (ER) | payer MEDICARE, MEDICAID ==
--- NOTE | 2019-06-23 02:20 | RADIOLOGY REPORT (SQ) ---
CLINICAL HISTORY: fall, pain and tenderness COMPARISON: None. TECHNIQUE: XR KNEE 1-2 VIEWS 06/23/2019 12:00 AM AUTOMATION TEST ENGINEER FINDINGS: There is no fracture. Joint spaces are preserved. Soft tissues are unremarkable. IMPRESSION: No acute osseous findings.
--- NOTE | 2019-06-23 05:16 | ER Document Report ---
ED General - General Chief Complaint: Fall Injury Stated Complaint: RIGHT KNEE PAIN Time Seen by Provider: 06/23/19 04:33 Primary Care Provider: YASSINE JOSEPH MD [Primary Care Provider] - Follow up as needed Notes: 63 year old male presents to the ED complaining that his right knee gave out on him again. Patient states that he was walking to the house to try and get food when his right knee gave out on him and he fell to the ground. Patient states that his right knee now hurts just like it does every time he falls. Patient states he has been able to bear weight on his right knee since the fall when cub[place] ng his cane for help. Denies any numbness or tingling. States that this leg has been giving out on him for some time. States that he has previously gotten injections into this knee but states that they do not work. Denies hitting his head, denies loss of consciousness. States his tetanus vaccine is up-to-date. TRAVEL OUTSIDE OF THE [place] IN LAST 30 DAYS: No - Related Data Allergies/Adverse Reactions: minerals [From Enviro Stress] Allergy (Verified 02/18/18 19:34) vitamin B complex and C [From Enviro Stress] Allergy (Verified 02/18/18 19:34) vitamin E (d-alpha tocopherol) [From Enviro Stress] Allergy (Verified 02/18/18 19:34) Home Medications: Insulin. Xarelto Past Medical History - General Information source: Patient - Social History Smoking Status: Never Smoker Chew tobacco use (# tins/day): No Frequency of alcohol use: Occasional Drug Abuse: None Family History: Reviewed & Not Pertinent Patient has suicidal ideation: No Patient has homicidal ideation: No - Past Medical History Cardiac Medical History: Reports: Hx Hypertension Neurological Medical History: Denies: Hx Seizures Endocrine Medical History: Reports: Hx Diabetes Mellitus Type 2 Renal/ Medical History: Denies: Hx Peritoneal Dialysis Musculoskeletal Medical History: Reports Hx Arthritis, Reports Hx Musculoskeletal Deformity, Reports Hx Musculoskeletal Trauma Psychiatric Medical History: Denies: Hx Depression - Immunizations Immunizations up to date: Yes Hx Diphtheria, Pertussis, Tetanus Vaccination: No Review of Systems - Review of Systems Constitutional: No symptoms reported Musculoskeletal: See HPI Skin: See HPI - Abrasion to right knee, Lesions -: Yes All other systems reviewed and negative Physical Exam - Vital signs Vitals: Temp Pulse Resp BP Pulse Ox 98.3 F 90 20 150/105 H 97 06/22/19 23:48 06/22/19 23:48 06/22/19 23:48 06/22/19 23:48 06/22/19 23:48 Interpretation: Hypertensive - General General appearance: Appears well, Alert In distress: None - HEENT Head: Normocephalic, Atraumatic Eyes: Normal Pupils: PERRL - Respiratory Respiratory status: No respiratory distress Chest palpation: Normal - Cardiovascular Pulses: Normal: Popliteal, Posterior tibial, Dorsalis pedis Normal capillary refill: Yes - Abdominal Inspection: Normal Distension: No distension - Extremities Notes: Full range of motion of the right knee, no crepitus, no ligamentous laxity, no anterior or posterior drawer test laxity. No effusion. No pain with range of motion. 5 out of 5 muscle strength in the right lower extremity. Sensation intact. - Skin Notes: Superficial abrasion on the right patella. Course - Re-evaluation Re-evalutation: 06/23/19 05:14 X-ray negative. No evidence of ligamentous injury. Recommend patient follow-up with orthopedic surgeon as an outpatient for recurrent falls related to his right knee giving out on him. Discharged home. - Vital Signs Vital signs: Temp Pulse Resp BP Pulse Ox 98.3 F 86 18 127/71 H 98 06/23/19 00:42 06/23/19 03:04 06/23/19 03:04 06/23/19 03:04 06/23/19 03:04 Discharge - Discharge Clinical Impression: Arthropathy of right knee, Right knee buckling Fall at home Qualifiers: Encounter type: initial encounter Qualified Code(s): W19.XXXA - Unspecified fall, initial encounter; Y92.009 - Unspecified place in unspecified non- institutional (private) residence as the place of occurrence of the external cause Condition: Stable Disposition: HOME, SELF-CARE Additional Instructions: Today we did not find any evidence of an acute injury to your knee. If your knee continues to give out on you it is very important that you follow-up with an orthopedic surgeon as an outpatient for further investigation. At some point they may wish to do an MRI or an arthroscopy since your knee keeps giving out on you and causing you to fall. Please return for numbness, tingling, weakness or swelling of the knee. Referrals: YASSINE JOSEPH MD [Primary Care Provider] - Follow up as needed ANGELITA PARDO JR, DO [ACTIVE PROVISIONAL STAFF] - Follow up as needed
[2019-06-23 05:33] VITALS: BP 135/79
== END 2019-06-23 05:26 | disposition home or self-care (01) ==
LOC: ER 23:31
DX: S80.211A Abrasion, right knee, initial encounter (principal); M12.861 Other specific arthropathies, not elsewhere classified, right knee; W18.30XA Fall on same level, unspecified, initial encounter; I10 Essential (primary) hypertension; E11.9 Type 2 diabetes mellitus without complications
CPT/HCPCS: 99283

== ENCOUNTER 2019-07-04 01:05 | Emergency (ER) | payer MEDICARE, MEDICAID ==
[2019-07-04] MEDS ORDERED: OXYCODONE-ACETAMINOPHEN 5-325 MG TABLET PO ONE (02:42)
--- NOTE | 2019-07-04 02:44 | ER Document Report ---
HPI - HPI Time Seen by Provider: 07/04/19 02:34 Pain Level: 5 Context: Patient is a 63-year-old male that comes to the emergency department by EMS for chief complaint of right knee pain. He states that about 2 days ago he fell and landed on the knee, he states there are scabs over his lower knee where he fell, he states that his knee keeps giving out on him when he walks. He states this is random and has been happening for a while but is bothering him more and hurts him more recently. He is still able to walk, he uses both a cane and a walker at home, he states that he has had multiple injections into the knee and has been given pain medicine for the knee but he has not seen an orthopedic surgeon for this yet. He has not had an MRI of the knee. He denies numbness, he denies any other injuries from the fall, he is not on a blood thinner. Past medical hi story of hypertension, type 2 diabetes, denies neuropathy. - REPRODUCTIVE Reproductive: DENIES: : Past Medical History - General Information source: Patient - Social History Smoking Status: Never Smoker Frequency of alcohol use: None Drug Abuse: None Lives with: Family Family History: Reviewed & Not Pertinent Patient has suicidal ideation: No Patient has homicidal ideation: No - Past Medical History Cardiac Medical History: Reports: Hx Hypertension Neurological Medical History: Denies: Hx Seizures Endocrine Medical History: Reports: Hx Diabetes Mellitus Type 2 Renal/ Medical History: Denies: Hx Peritoneal Dialysis Musculoskeletal Medical History: Reports Hx Arthritis, Reports Hx Musculoskeletal Deformity, Reports Hx Musculoskeletal Trauma Psychiatric Medical History: Denies: Hx Depression - Immunizations Immunizations up to date: Yes Hx Diphtheria, Pertussis, Tetanus Vaccination: Yes Vertical Provider Document - CONSTITUTIONAL General Appearance: WD/WN, No Apparent Distress - INFECTION CONTROL TRAVEL OUTSIDE OF THE [place] IN LAST 30 DAYS: No - HEENT HEENT: Atraumatic, Normal ENT Exam, Normocephalic - NECK Neck: Normal Inspection - RESPIRATORY Respiratory: Breath Sounds Normal, No Respiratory Distress, Chest Non-Tender - CARDIOVASCULAR Cardiovascular: Regular Rate, Regular Rhythm - GI/ABDOMEN Gastrointestinal: Abdomen Soft, Abdomen Non-Tender - BACK Back: Normal Inspection - Non-tender back generally on palpation. No midline tenderness, no signs of trauma, normal distal neurovascular exam - MUSCULOSKELETAL/EXTREMETIES Musculoskeletal/Extremeties: MAEW, FROM, Tender - Patient has a scab on the right knee just below the patella, he has no noted pain with palpation over the knee, no swelling, ligaments appear intact with no laxity, normal coloration and temperature. Full range of motion present. There is some grinding with Rubio testing. Normal distal neurovascular exam. Normal ankle and hip exam. - NEURO Level of Consciousness: Awake, Alert, Appropriate Course - Re-evaluation Re-evalutation: Patient with no tenderness with palpation over the knee. There is some grinding on exam with Rubio test, there is some degenerative changes on the x-ray but there is no acute finding. He has a small scab but there is no sign of infection. Patient is able to tolerate weight without difficulty. This is the second time patient has been evaluated here for the same problem, he is still not seeing orthopedics. He states he lives with his nephew and his nephew will be able to get him to orthopedics for additional imaging and treatment. I offer ed to have manager of case management follow-up with him to attempt to assist with this but he declined stating he will be able to do so. I discussed findings, expectations, follow-up, and return precautions. Provided him with a few pain medication for when pain becomes severe, recommended Tylenol and ice otherwise. Patient asymptomatic on my reevaluation, no additional complaints, states he is ready to go home. Stable at time of discharge. - Vital Signs Vital signs: Temp Pulse Resp BP Pulse Ox 98.4 F 97 16 105/75 96 07/04/19 01:13 07/04/19 01:13 07/04/19 01:13 07/04/19 01:13 07/04/19 01:13 Discharge - Discharge Clinical Impression: Right knee pain Qualifiers: Chronicity: acute Qualified Code(s): M25.561 - Pain in right knee Right knee injury Qualifiers: Encounter type: initial encounter Qualified Code(s): S89.91XA - Unspecified injury of right lower leg, initial encounter Condition: Stable Disposition: HOME, SELF-CARE Additional Instructions: Your exam and imaging indicate some arthritis but no concerning findings are seen from your fall and injury. Ice the knee 3-4 times a day for 10 to 15 minutes. Take Tylenol for pain, take provided medication that is stronger only if needed, if you do also take an [id number] stool softener to avoid constipation. Use your cane and walker. Call the listed orthopedic referral tomorrow and perform close follow-up for additional management of your knee. Return if you worsen including developing swelling, redness, fever, severe worsening pain, numbness, or any other concerning symptoms. Referrals: LEANNA CRUZ MD [ACTIVE STAFF] - Follow up tomorrow
--- NOTE | 2019-07-04 03:38 | RADIOLOGY REPORT (SQ) ---
Right knee four view on 07/04/2019 at 2:57 AM CLINICAL INDICATION: Knee pain after fall COMPARISON: 06/23/2019 FINDINGS: Lateral view is somewhat limited by technique but no definite joint effusion is noted. There is mild diffuse osteopenia. There is joint space narrowing in the medial compartment. There are no fractures. There is no dislocation. IMPRESSION: No acute abnormality.
[2019-07-04] MEDS ORDERED: HYDROCODONE/ACETAMINOPHEN 5-325 MG (6 TAB/ER DISP) PO PRN (03:57)
[2019-07-04 07:48] VITALS: BP 124/76
== END 2019-07-04 07:58 | disposition home or self-care (01) ==
LOC: ER 01:05
DX: S89.91XA Unspecified injury of right lower leg, initial encounter (principal); M25.561 Pain in right knee; W19.XXXA Unspecified fall, initial encounter; I10 Essential (primary) hypertension; E11.9 Type 2 diabetes mellitus without complications
CPT/HCPCS: 99283; 73564; A9270 ×2

== ENCOUNTER 2019-07-14 00:15 | Emergency (ER) | payer MEDICARE, MEDICAID ==
--- NOTE | 2019-07-14 01:49 | ER Document Report ---
ED Medical Screen (RME) - General Chief Complaint: Knee Injury Stated Complaint: RIGHT KNEE PAIN Time Seen by Provider: 07/14/19 01:46 Primary Care Provider: YASSINE JOSEPH MD [Primary Care Provider] - Follow up as needed Mode of Arrival: Medic Information source: Patient Notes: 63-year-old male patient presented emergency department chief complaint of right knee pain. Patient reports he has chronic pain in his knee but today he fell onto the knee. He reports limited mobility since he fell. Denies striking his head, denies any loss of consciousness. Mild swelling noted to the knee, no obvious deformity. Will send patient for x- rays. I have greeted and performed a rapid initial assessment of this patient. A comprehensive ED assessment and evaluation of the patient, analysis of test results and completion of the medical decision making process will be conducted by additional ED providers. I have specifically instructed the patient or family members with the patient to immediately return to any nursing staff should anything change in the patient's condition or with their chief complaint. TRAVEL OUTSIDE OF THE [place] IN LAST 30 DAYS: No - Related Data Allergies/Adverse Reactions: minerals [From Enviro Stress] Allergy (Verified 02/18/18 19:34) vitamin B complex and C [From Enviro Stress] Allergy (Verified 02/18/18 19:34) vitamin E (d-alpha tocopherol) [From Enviro Stress] Allergy (Verified 02/18/18 19:34) Home Medications: hydrocodone. insulin 15 units Past Medical History - Social History Frequency of alcohol use: 2 shots of gin - Past Medical History Cardiac Medical History: Reports: Hx Hypertension Neurological Medical History: Denies: Hx Seizures Endocrine Medical History: Reports: Hx Diabetes Mellitus Type 2 Renal/ Medical History: Denies: Hx Peritoneal Dialysis Musculoskeltal Medical History: Reports Hx Arthritis, Reports Hx Musculoskeletal Deformity, Reports Hx Musculoskeletal Trauma Psychiatric Medical History: Denies: Hx Depression - Immunizations Immunizations up to date: Yes Hx Diphtheria, Pertussis, Tetanus Vaccination: Yes Physical Exam - Vital signs Vitals: Temp Pulse Resp BP Pulse Ox 98.4 F 89 22 H 122/74 97 07/14/19 00:25 07/14/19 00:25 07/14/19 00:25 07/14/19 00:25 07/14/19 00:25 Course - Vital Signs Vital signs: Temp Pulse Resp BP Pulse Ox 98.4 F 89 22 H 122/74 97 07/14/19 00:25 07/14/19 00:25 07/14/19 00:25 07/14/19 00:25 07/14/19 00:25 Doctor's Discharge - Discharge Referrals: YASSINE JOSEPH MD [Primary Care Provider] - Follow up as needed
--- NOTE | 2019-07-14 03:11 | RADIOLOGY REPORT (SQ) ---
Right knee four view on 07/14/2019 at 2:37 AM CLINICAL INDICATION: Pain after fall COMPARISON: 07/04/2019 FINDINGS: There is joint space narrowing in the medial compartment. No joint effusion is noted. Vascular calcifications are noted. There is mild osteopenia. There are no fractures. Visualized joints are well aligned. IMPRESSION: No acute abnormality.
[2019-07-14] MEDS ORDERED: OXYCODONE-ACETAMINOPHEN 5-325 MG TABLET PO ONE (05:01)
--- NOTE | 2019-07-14 05:41 | ER Document Report ---
ED General - General Chief Complaint: Knee Injury Stated Complaint: RIGHT KNEE PAIN Time Seen by Provider: 07/14/19 01:46 Primary Care Provider: YASSINE JOSEPH MD [Primary Care Provider] - Follow up as needed Mode of Arrival: Medic TRAVEL OUTSIDE OF THE [place] IN LAST 30 DAYS: No - HPI Notes: Mr. Hernandez is a [id number]-year-old male presenting with a chief complaint of right knee pain. This is a very chronic complaint for this gentleman and he has been here several times for this. There is no new injury. He has been previously told that he needs to see orthopedics but says he has had "difficulty getting a ride". He is previously been told to use Tylenol but says that this is not adequately controlling his pain. He denies any history of locking or giving way of the knee joint. Patient ambulates with a walker. - Related Data Allergies/Adverse Reactions: minerals [From [employer]] Allergy (Verified 02/18/18 19:34) vitamin B complex and C [From [employer]] Allergy (Verified 02/18/18 19:34) vitamin E (d-alpha tocopherol) [From [employer]] Allergy (Verified 02/18/18 19:34) Home Medications: hydrocodone. insulin 15 units Past Medical History - General Information source: Patient - Social History Smoking Status: Former Smoker Frequency of alcohol use: 2 shots of gin Family History: Reviewed & Not Pertinent Patient has suicidal ideation: No Patient has homicidal ideation: No - Past Medical History Cardiac Medical History: Reports: Hx Hypertension Neurological Medical History: Denies: Hx Seizures Endocrine Medical History: Reports: Hx Diabetes Mellitus Type 2 Renal/ Medical History: Denies: Hx Peritoneal Dialysis Musculoskeletal Medical History: Reports Hx Arthritis, Reports Hx Musculosk eletal Deformity, Reports Hx Musculoskeletal Trauma Psychiatric Medical History: Denies: Hx Depression - Immunizations Immunizations up to date: Yes Hx Diphtheria, Pertussis, Tetanus Vaccination: Yes Review of Systems - Review of Systems Notes: Constitutional: Negative for fever. HENT: Negative for sore throat. Eyes: Negative for visual changes. Cardiovascular: Negative for chest pain. Respiratory: Negative for shortness of breath. Gastrointestinal: Negative for abdominal pain, vomiting or diarrhea. Genitourinary: Negative for dysuria. Musculoskeletal: As per HPI. Skin: Negative for rash. Neurological: Negative for headaches, weakness or numbness. 10 point ROS negative except as marked above and in HPI. Physical Exam - Vital signs Vitals: Temp Pulse Resp BP Pulse Ox 98.4 F 89 22 H 122/74 97 07/14/19 00:25 07/14/19 00:25 07/14/19 00:25 07/14/19 00:25 07/14/19 00:25 - Notes Notes: GENERAL: Frail appearing elderly man ambulating with a walker.. SKIN: Good turgor no rashes. HEAD: Normocephalic atraumatic. EYES: PERRLA. EOMI. Conjunctivae and sclerae clear. EARS: CANALS AND TMS CLEAR. NOSE: CLEAR. MOUTH: Moist mucosa. Good dentition. No stridor or edema. No drooling. NECK: Supple. No masses or thyromegaly. No adenopathy. Carotids 2+ without bruits. No JVD. BACK: Symmetrical without tenderness. CHEST: Respirations unlabored. Breath sounds clear and symmetrical. HEART: Regular rhythm. No murmur gallop or rub. ABDOMEN: Soft nontender without masses, organomegaly or rebound. Bowel sounds normally active. No bruits. GENITALIA: Deferred. EXTREMITIES: Prominent crepitus over the right knee. No warmth or redness. Decreased range of motion. No ligamentous instability. Mild tenderness over the patella on palpation. No edema. No calf tenderness. Cap refill less than 1.5 seconds. Dorsalis pedis and posterior tibial pulses 3+ and symmetrical. NEUROLOGICAL: GCS 15. Alert and oriented x3. Normal gait. Fluent speech. Cranial nerves II through XII intact. Sensorimotor and cerebellar normal. Normal tone. PSYCHIATRIC: Appropriate affect. Course - Re-evaluation Re-evalutation: 07/14/19 05:40 Patient is given a Percocet 5 tablet here and I will write him a prescription for 20 tablets until he can be seen by referral orthopedist. Suggest ice packs. - Vital Signs Vital signs: Temp Pulse Resp BP Pulse Ox 98.4 F 89 22 H 122/74 97 07/14/19 00:25 07/14/19 00:25 07/14/19 00:25 07/14/19 00:25 07/14/19 00:25 - Diagnostic Test Radiology reviewed: Reports reviewed Radiology results interpreted by me: 07/14/19 05:39 Per radiologist arthritic changes with medial compartment narrowing. No fracture or dislocation. Discharge - Discharge Clinical Impression: Degenerative arthritis of right knee Qualifiers: Osteoarthritis type: unspecified Qualified Code(s): M17.11 - Unilateral primary osteoarthritis, right knee Condition: Stable Disposition: HOME, SELF-CARE Instructions: Ice & Elevation ([facility]), Oral Narcotic Medication ([facility]) Prescriptions: Oxycodone HCl/Acetaminophen [Percocet 5-325 mg Tablet] 1 - 2 tab PO Q4H PRN #15 tablet PRN Reason: Referrals: YASSINE JOSEPH MD [Primary Care Provider] - Follow up as needed
[2019-07-14 06:05] VITALS: BP 126/72
== END 2019-07-14 06:05 | disposition home or self-care (01) ==
LOC: ER 00:15
DX: M17.11 Unilateral primary osteoarthritis, right knee (principal); E11.9 Type 2 diabetes mellitus without complications; I10 Essential (primary) hypertension; Z87.891 Personal history of nicotine dependence; Z79.891 Long term (current) use of opiate analgesic; Z79.4 Long term (current) use of insulin; Z88.8 Allergy status to other drugs, medicaments and biological substances
CPT/HCPCS: 99283; 73564; A9270

== ENCOUNTER 2019-08-19 14:56 | Emergency (ER) | payer MEDICARE, MEDICAID ==
--- NOTE | 2019-08-19 15:24 | ER Document Report ---
ED Medical Screen (RME) - General Chief Complaint: Knee Pain Stated Complaint: KNEE PAIN Time Seen by Provider: 08/19/19 15:20 Primary Care Provider: YASSINE JOSEPH MD [Primary Care Provider] - Follow up as needed Notes: 63-year-old male presents with chronic right knee pain. Patient states he supposed to follow-up at [facility] but has not yet. Patient states he only took 2 shots of alcohol to help ease the pain however patient is visibly intoxicated and slurring his words in triage. Patient is nontoxic, well- appearing otherwise. I have greeted and performed a rapid initial assessment of this patient. A comprehensive ED assessment and evaluation of the patient, analysis of test results and completion of the medical decision making process with be conducted by additional ED providers. TRAVEL OUTSIDE OF THE [place] IN LAST 30 DAYS: No - Related Data Allergies/Adverse Reactions: minerals [From [employer]] Allergy (Verified 08/19/19 15:19) vitamin B complex and C [From [employer]] Allergy (Verified 08/19/19 15:19) vitamin E (d-alpha tocopherol) [From [employer]] Allergy (Verified 08/19/19 15:19) Past Medical History - Past Medical History Cardiac Medical History: Reports: Hx Hypertension Neurological Medical History: Denies: Hx Seizures Endocrine Medical History: Reports: Hx Diabetes Mellitus Type 2 Renal/ Medical History: Denies: Hx Peritoneal Dialysis Musculoskeltal Medical History: Reports Hx Arthritis, Reports Hx Musculoskeletal Deformity, Reports Hx Musculoskeletal Trauma Psychiatric Medical History: Denies: Hx Depression - Immunizations Immunizations up to date: Yes Hx Diphtheria, Pertussis, Tetanus Vaccination: Yes Physical Exam - Vital signs Vitals: Temp Pulse Resp BP Pulse Ox 97.9 F 96 16 134/95 H 95 08/19/19 15:14 08/19/19 15:14 08/19/19 15:14 08/19/19 15:14 08/19/19 15:14 Course - Vital Signs Vital signs: Temp Pulse Resp BP Pulse Ox 97.9 F 96 16 134/95 H 95 08/19/19 15:14 08/19/19 15:14 08/19/19 15:14 08/19/19 15:14 08/19/19 15:14 Doctor's Discharge - Discharge Referrals: YASSINE JOSEPH MD [Primary Care Provider] - Follow up as needed
[2019-08-19] MEDS ORDERED: THIAMINE HCL 100 MG, FOLIC ACID 1 MG in NORMAL SALINE 250 ML IV ONE (15:26)
[2019-08-19] MEDS ORDERED: NORMAL SALINE 1000 ML 1,000 ML IV ONE (15:27)
[2019-08-19 15:53] LABS: ABSOLUTE LYMPHOCYTES (AUTO) 1.4 10^3/uL (0.5-4.7); ABSOLUTE MONOCYTES (AUTO) 0.4 10^3/uL (0.1-1.4); ABSOLUTE NEUT (AUTO) 2.4 10^3/uL (1.7-8.2); BASOPHILS % (AUTO) 1.1 % (0-2); EOSINOPHILS % (AUTO) 0.7 % (0-6); HEMATOCRIT 36.6 % (37.9-51.0); HEMOGLOBIN 12.7 g/dL (13.5-17.0); LYMPHOCYTES % (AUTO) 32.7 % (13-45); MEAN CORPUSCULAR HEMOGLOBIN 33.6 pg (27.0-33.4); MEAN CORPUSCULAR HGB CONC 34.6 g/dL (32.0-36.0); MEAN CORPUSCULAR VOLUME 97 fl (80-97); MONOCYTES % (AUTO) 9.3 % (3-13); PLATELET COUNT 118 10^3/uL (150-450); RED BLOOD COUNT 3.78 10^6/uL (4.35-5.55); RED CELL DISTRIBUTION WIDTH 16.8 % (11.5-14.0); SEGMENTED NEUTROPHILS % (AUTO) 56.2 % (42-78); TOTAL CELLS COUNTED % (AUTO) 100 %; WHITE BLOOD COUNT 4.2 10^3/uL (4.0-10.5)
[2019-08-19 16:03] LABS: ALBUMIN 4.5 g/dL (3.5-5.0); ALKALINE PHOSPHATASE 170 U/L (38-126); ANION GAP 18 (5-19); ASPARTATE AMINO TRANSFERASE 224 U/L (17-59); BILIRUBIN,DIRECT 0.5 mg/dL (0.0-0.4); BLOOD UREA NITROGEN 10 mg/dL (7-20); CALCIUM 8.7 mg/dL (8.4-10.2); CARBON DIOXIDE 25 mmol/L (22-30); CHLORIDE 102 mmol/L (98-107); GLUCOSE 141 mg/dL (75-110); POTASSIUM 3.6 mmol/L (3.6-5.0); TOTAL PROTEIN 9.4 g/dL (6.3-8.2)
[2019-08-19] MEDS ORDERED: KETOROLAC TROMETHAMINE INJ/PF 30 MG/1 ML SDV IV ONE (16:42)
--- NOTE | 2019-08-19 16:42 | ER Document Report ---
ED Extremity Problem, Lower - General Chief Complaint: Knee Pain Stated Complaint: KNEE PAIN Time Seen by Provider: 08/19/19 15:20 Primary Care Provider: YASSINE JOSEPH MD [Primary Care Provider] - Follow up as needed Notes: 63-year-old male presents to presents to the emergency department with complaint of right knee pain. He has had degenerative arthritis of the knee/osteoarthritis and states he was supposed to getting a knee replacement surgery. Presently complaining of just worsening pain and difficulty. TRAVEL OUTSIDE OF THE [place] IN LAST 30 DAYS: No - Related Data Allergies/Adverse Reactions: minerals [From [employer]] Allergy (Verified 08/19/19 15:19) vitamin B complex and C [From [employer]] Allergy (Verified 08/19/19 15:19) vitamin E (d-alpha tocopherol) [From [employer]] Allergy (Verified 08/19/19 15:19) Past Medical History - Social History Smoking Status: Never Smoker Chew tobacco use (# tins/day): No Frequency of alcohol use: Social Drug Abuse: None Family History: Reviewed & Not Pertinent Patient has suicidal ideation: No Patient has homicidal ideation: No - Past Medical History Cardiac Medical History: Reports: Hx Hypertension Neurological Medical History: Denies: Hx Seizures Endocrine Medical History: Reports: Hx Diabetes Mellitus Type 2 Renal/ Medical History: Denies: Hx Peritoneal Dialysis Musculoskeletal Medical History: Reports Hx Arthritis, Reports Hx Musculoskeletal Deformity, Reports Hx Musculoskeletal Trauma Psychiatric Medical History: Denies: Hx Depression - Immunizations Immunizations up to date: Yes Hx Diphtheria, Pertussis, Tetanus Vaccination: Yes Review of Systems - Review of Systems Notes: Constitutional: Negative for fever. HENT: Negative for sore throat. Eyes: Negative for visual changes. Cardiovascular: Negative for chest pain. Respiratory: Negative for shortness of breath. Gastrointestinal: Negative for abdominal pain, vomiting or diarrhea. Genitourinary: Negative for dysuria. Musculoskeletal: + Right knee pain Skin: Negative for rash. Neurological: Negative for headaches, weakness or numbness. 10 point ROS negative except as marked above and in HPI. Physical Exam - Vital signs Vitals: Temp Pulse Resp BP Pulse Ox 97.9 F 96 16 134/95 H 95 08/19/19 15:14 08/19/19 15:14 08/19/19 15:14 08/19/19 15:14 08/19/19 15:14 - Notes Notes: PHYSICAL EXAMINATION: Physical Exam: General: Well-nourished well-developed 63-year-old man in no acute distress HEENT: NC/AT, pupils equal round and reactive to light, MM moist,nares clear, oropharynx clear Neck: supple, no adenopathy, no masses. Lungs: clear, no wheezing, no rales no rhonchi CVS: Regular rate and rhythm no murmur gallop or rub Abdomen: Soft active nontender, no masses, no hepatosplenomegaly Ext: Right knee no swelling, good range of motion, no crepitus Neuro: Alert and responsive, moving all 4 extremities on command, cranial nerves intact. Skin: Intact no open lesions, no rash PSYCH: Normal mood, normal affect. Course - Vital Signs Vital signs: Temp Pulse Resp BP Pulse Ox 97.9 F 96 16 134/95 H 95 08/19/19 15:14 08/19/19 15:14 08/19/19 15:14 08/19/19 15:14 08/19/19 15:14 - Laboratory Result Diagrams: 08/19/19 15:30 08/19/19 15:30 Laboratory results interpreted by me: 08/19/19 08/19/19 15:30 15:30 RBC 3.78 L Hgb 12.7 L Hct 36.6 L MCH 33.6 H RDW 16.8 H Plt Count 118 L Sodium 145.1 H Glucose 141 H Total Bilirubin 2.0 H Direct Bilirubin 0.5 H AST 224 H Alkaline Phosphatase 170 H Total Protein 9.4 H Discharge - Discharge Clinical Impression: Osteoarthritis of right knee Qualifiers: Osteoarthritis type: unspecified Qualified Code(s): M17.11 - Unilateral primary osteoarthritis, right knee Condition: Good Instructions: Osteoarthritis ([facility]), Ice & Elevation ([facility]) Additional Instructions: Use Tylenol arthritis for pain, do not drink while using these medications. Follow-up with the orthopedist regarding your knee Using a cold compress to your knee may reduce the pain. Referrals: YASSINE JOSEPH MD [Primary Care Provider] - Follow up as needed
[2019-08-19 20:00] VITALS: BP 100/78
== END 2019-08-19 20:03 | disposition home or self-care (01) ==
LOC: ER 14:56
DX: M17.11 Unilateral primary osteoarthritis, right knee (principal); M25.561 Pain in right knee; I10 Essential (primary) hypertension; E11.9 Type 2 diabetes mellitus without complications
CPT/HCPCS: 36415; 85025; 80053; J3490; J1885; J3411; J7030; J7050; 96365; 96375; 99283

== ENCOUNTER 2019-09-11 20:23 | Emergency (ER) | payer MEDICARE, MEDICAID ==
[2019-09-11 20:41] VITALS: BP 109/67
[2019-09-11] MEDS ORDERED: KETOROLAC TROMETHAMINE 60 MG/2 ML SDV IM ONE (21:27)
--- NOTE | 2019-09-11 21:33 | ER Document Report ---
ED Medical Screen (RME) - General Chief Complaint: Knee Pain Stated Complaint: RIGHT KNEE PAIN Time Seen by Provider: 09/11/19 21:21 Primary Care Provider: YASSINE JOSEPH MD [Primary Care Provider] - Follow up as needed Notes: Patient is a 63-year-old male who presents to the emergency department with right knee pain. Patient states that he has had chronic pain and normally gets knee injections in his right knee. He saw his orthopedic doctor and states that the steroid injection he was given helped, but is now hurting again. Patient admits to drinking gin to help with his pain, but states, "it only does so much." Exam: Tenderness noted to right knee. I have greeted and performed a rapid initial assessment of this patient. A comprehensive ED assessment and evaluation of the patient, analysis of test results and completion of medical decision making process will be conducted by an additional ED providers. TRAVEL OUTSIDE OF THE [place] IN LAST 30 DAYS: No - Related Data Allergies/Adverse Reactions: minerals [From [employer]] Allergy (Verified 08/19/19 15:19) vitamin B complex and C [From [employer]] Allergy (Verified 08/19/19 15:19) vitamin E (d-alpha tocopherol) [From [employer]] Allergy (Verified 08/19/19 15:19) Home Medications: diabetic pill, ibuprofen for pain Past Medical History - Social History Frequency of alcohol use: 2 shots of gin - Past Medical History Cardiac Medical History: Reports: Hx Hypertension Neurological Medical History: Denies: Hx Seizures Endocrine Medical History: Reports: Hx Diabetes Mellitus Type 2 Renal/ Medical History: Denies: Hx Peritoneal Dialysis Musculoskeltal Medical History: Reports Hx Arthritis, Reports Hx Musculoskeletal Deformity, Reports Hx Musculoskeletal Trauma Psychiatric Medical History: Denies: Hx Depression Past Surgical History: Reports: Hx Orthopedic Surgery - RIGHT HAND - Immunizations Immunizations up to date: Yes Hx Diphtheria, Pertussis, Tetanus Vaccination: Yes Physical Exam - Vital signs Vitals: Temp Pulse Resp BP Pulse Ox 98.2 F 95 18 109/67 100 09/11/19 20:38 09/11/19 20:38 09/11/19 20:38 09/11/19 20:38 09/11/19 20:38 Course - Vital Signs Vital signs: Temp Pulse Resp BP Pulse Ox 98.2 F 95 18 109/67 100 09/11/19 20:38 09/11/19 20:38 09/11/19 20:38 09/11/19 20:38 09/11/19 20:38 Doctor's Discharge - Discharge Referrals: YASSINE JOSEPH MD [Primary Care Provider] - Follow up as needed
--- NOTE | 2019-09-11 21:59 | RADIOLOGY REPORT (SQ) ---
EXAM DESCRIPTION: XR KNEE 4 OR MORE VIEWS COMPLETED DATE/TME: 09/11/2019 21:27 CLINICAL HISTORY: 63 years, Male, knee pain COMPARISON: None. NUMBER OF VIEWS: 4 TECHNIQUE: Right LIMITATIONS: None. FINDINGS: No acute displaced fracture. Alignment is anatomic. Joint spaces within normal limits for age. Vascular calcification and soft tissue swelling IMPRESSION: No acute fracture. copyright 2010 [employer]- All Rights Reserved
== END 2019-09-11 22:30 | disposition left against medical advice (07) ==
LOC: ER 20:23
DX: Z53.21 Procedure and treatment not carried out due to patient leaving prior to being seen by health care provider (principal); M25.561 Pain in right knee; Z88.8 Allergy status to other drugs, medicaments and biological substances; Z79.899 Other long term (current) drug therapy; Z79.84 Long term (current) use of oral hypoglycemic drugs; I10 Essential (primary) hypertension; E11.9 Type 2 diabetes mellitus without complications
CPT/HCPCS: 99281